=== PATIENT | female | born 1965 | race Caucasian/White ===

== ENCOUNTER 2019-07-16 19:15 | Inpatient (IN) | payer OTHER ==
[~2019-07-16] VITALS: Ht 65 cm; Wt 68.6 kg
[2019-07-16 19:45] LABS: HEMATOCRIT 42 % (35-52); LYMPHOCYTES % (AUTO) 20 % (12-44); MEAN CORPUSCULAR HEMOGLOBIN 35 PG (25-34); MEAN CORPUSCULAR HGB CONC 36 G/DL (32-36); MEAN CORPUSCULAR VOLUME 97 FL (80-99); MEAN PLATELET VOLUME 10.3 FL (7.4-10.4); MONOCYTES % (AUTO) 7 % (0-12); NEUTROPHILS % (AUTO) 72 % (42-75); PLATELET COUNT 284 10^3/uL (130-400); WHITE BLOOD COUNT 9.7 10^3/uL (4.3-11.0)
[2019-07-16 19:46] LABS: BASOPHILS # (AUTO) 0.1 10^3/uL (0.0-0.1); BASOPHILS % (AUTO) 1 % (0-10); EOSINOPHILS % (AUTO) 0 % (0-10); LYMPHOCYTES # (AUTO) 1.9 X 10^3 (1.0-4.0); MONOCYTES # (AUTO) 0.7 X 10^3 (0.0-1.0); NEUTROPHILS # (AUTO) 6.9 X 10^3 (1.8-7.8)
[2019-07-16 19:54] LABS: PROTHROMBIN TIME PATIENT 13.6 SEC (12.2-14.7)
--- NOTE | 2019-07-16 20:00 | Diagnostic Imaging Report ---
PROCEDURE: CT head wo r/o stroke. TECHNIQUE: Multiple contiguous axial images were obtained through the brain without the use of intravenous contrast. Auto Exposure Controls were utilized during the CT exam to meet ALARA standards for radiation dose reduction. INDICATION: Weakness and falling. CT HEAD: CT images of the head were obtained. FINDINGS: Ventricles and sulci are within normal limits for size. There is no intracranial hemorrhage identified. There is no abnormal mass effect or shift of midline structures. There is atherosclerotic calcification within distal internal carotid arteries, bilaterally. IMPRESSION: Unremarkable CT of the head. Dictated by: Dictated on workstation # [id number]
--- NOTE | 2019-07-16 20:06 | Diagnostic Imaging Report ---
INDICATION: Upper extremity paresthesia and generalized weakness Single PA view of the chest is obtained. COMPARISON: No previous study is available for comparison at this time. FINDINGS: Heart size and pulmonary vasculature are within normal limits, and the lungs are clear, bilaterally. IMPRESSION: Unremarkable chest. Dictated by: Dictated on workstation # [id number]
[2019-07-16 20:07] LABS: BUN/CREATININE RATIO 13; CALCIUM 10.2 MG/DL (8.5-10.1); CARBON DIOXIDE 32 MMOL/L (21-32); CHLORIDE 91 MMOL/L (98-107); CREATININE SERUM 0.69 MG/DL (0.60-1.30); GFR ESTIMATED > 60; GLUCOSE 196 MG/DL (70-105); POTASSIUM 2.6 MMOL/L (3.6-5.0); SODIUM 139 MMOL/L (135-145)
[2019-07-16 20:08] LABS: ALANINE AMINOTRANSFERASE 11 U/L (0-55); ALBUMIN 4.2 GM/DL (3.2-4.5); ALKALINE PHOSPHATASE 101 U/L (40-136); BILIRUBIN,TOTAL 0.5 MG/DL (0.1-1.0)
[2019-07-16] MEDS ORDERED: POTASSIUM CL 10MEQ/50ML IVPB 50 ML IV STA (20:28)
[2019-07-16] MEDS ORDERED: NS IV 1000 ML 1,000 ML IV STA (20:28)
[2019-07-16 20:48] LABS: CLARITY,URINE SLT CLOUDY; COLOR,URINE YELLOW; GLUCOSE, URINE (UA) NEGATIVE (NEGATIVE); KETONES,URINE TRACE (NEGATIVE); NITRITE,URINE NEGATIVE (NEGATIVE); PH,URINE 8.5 (5-9); PROTEIN,URINE NEGATIVE (NEGATIVE)
[2019-07-16 20:49] LABS: BACTERIA,URINE TRACE /HPF; BILIRUBIN,URINE 1+ (NEGATIVE); LEUKOCYTE ESTERASE ,URINE NEGATIVE (NEGATIVE); WBC,URINE 0-2 /HPF
[2019-07-16 20:50] LABS: AMORPHOUS SEDIMENT,UR FEW AMOR PHOSPHATE /LPF
--- NOTE | 2019-07-16 21:18 | ED General ---
General Chief Complaint: Neurological Problems Stated Complaint: POSS STROKE Nursing Triage Note: Has been off of BP meds for two years and was restarted on lisinopril last week. Monday was the first day she took the pills and woke up from a nap with some hand numbness. Yesterday she started having some weakness and fell twice. Is still feeling weak today but has not taken any more of the lisinopril because she thought it might be related. Has hx of hypertension. Nursing Sepsis Screen: No Definite Risk Source of Information: Patient, Family History of Present Illness Date Seen by Provider: Jul 16, 2019 Time Seen by Provider: 20:51 Initial Comments 53-year-old female presenting with complaints of left-sided weakness that is been off and on since Monday. She has a history of high blood pressure but has not been taking medicine for over 2 years. She was just restarted on Lisinopril Monday. She did not take her first dose until Monday. Since then she has been having some weakness and numbness in the left side. She had fallen over the weekend due to weakness in her left leg. She feels like her left leg is driving. She has been having some headaches as well. She feels like her left hand wouldn't steward/stewardess night yesterday but today it was doing better. She finally had her family bring her to the ED today because of her symptoms. She also has had right foot numbness for a month. Allergies and Home Medications Allergies Coded Allergies: No Known Drug Allergies (Unverified , 07/16/19) Patient Home Medication List Home Medication List Reviewed: Yes Review of Systems Review of Systems Constitutional: No chills, No fever; malaise EENTM: No ear discharge, No ear pain, No blurred vision, No double vision, No vision loss, No epistaxis, No throat swelling Respiratory: No cough, No short of breath Cardiovascular: No chest pain, No edema, No palpitations Gastrointestinal: No abdominal pain, No nausea, No vomiting Genitourinary: No dysuria, No frequency Musculoskeletal: neck pain (chronic and no worse than normal) Skin: No change in color Psychiatric/Neurological: Paresthesia (tingling in left arm and leg and slightly decreased sensation compared to the right) Past Xnvkjdt-Gxffph-Kdtkjy Hx Past Med/Social Hx: Reviewed Nursing Past Med/Soc Hx Patient Social History Alcohol Use: Occasionally Uses Alcohol Beverage of Choice: Whiskey Recreational Drug Use: No Smoking Status: Current Everyday Smoker Type Used: Cigarettes 2nd Hand Smoke Exposure: Yes Recent Foreign Travel: No Contact w/Someone Who Travel: No Recent Infectious Disease Expo: No Recent Hopitalizations: No Physical Abuse: No Sexual Abuse: No Mistreated: No Fear: No Seasonal Allergies Seasonal Allergies: No Past Medical History Surgeries: Yes Section, Tonsillectomy Respiratory: No Cardiac: Yes High Cholesterol, Hypertension Neurological: No Genitourinary: No Gastrointestinal: No Musculoskeletal: No Endocrine: No HEENT: No Cancer: No Psychosocial: No Integumentary: No Physical Exam Vital Signs Vital Signs - First Documented 07/16/19 07/17/19 19:20 00:29 Temp 36.7 Pulse 117 Resp 18 B/P (MAP) 194/108 (136) Pulse Ox 94 O2 Delivery Room Air Capillary Refill : Less Than 3 Seconds Height, Weight, BMI Height: '" Weight: lbs. oz. kg; 25.00 BMI Method: General Appearance: No Apparent Distress, WD/WN HEENT: PERRL/EOMI, TMs Normal, Normal ENT Inspection, Pharynx Normal Neck: Full Range of Motion, Normal Inspection, Non Tender, Supple; No Carotid Bruit Respiratory: Chest Non Tender, Lungs Clear, Normal Breath Sounds, No Accessory Muscle Use, No Respiratory Distress Cardiovascular: Regular Rate, Rhythm, Normal Peripheral Pulses Gastrointestinal: Normal Bowel Sounds, No Pulsatile Mass, Non Tender, Soft Rectal: Deferred Back: Normal Inspection, No CVA Tenderness, No Vertebral Tenderness Extremity: Normal Capillary Refill, Normal Range of Motion, Non Tender, No Calf Tenderness, No Pedal Edema Neurologic/Psychiatric: Alert, Oriented x3, Normal 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, 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 Norm as Tested; No Facial Droop; Motor Weakness (drift to left arm and leg), Sensory Deficit (slight decrease in sensation to left arm and leg) Skin: Normal Color, Warm/Dry Progress/Results/Core Measures Suspected Sepsis Recent Fever Within 48 Hours: No Infection Criteria Present: None New/Unexplained Altered Menta: No Sepsis Screen: No Definite Risk SIRS Temperature: Pulse: 117 Respiratory Rate: 18 Laboratory Tests 07/16/19 19:28: White Blood Count 9.7 Blood Pressure 194 /108 Mean: 136 Laboratory Tests 07/16/19 19:28: Creatinine 0.69, INR Comment 1.0, Platelet Count 284, Total Bilirubin 0.5 Results/Orders Lab Results Laboratory Tests Test 07/16/19 19:28 07/16/19 19:40 07/16/19 19:42 Range/Units White Blood Count 9.7 4.3-11.0 10^3/uL Red Blood Count 4.34 L 4.35-5.85 10^6/uL Hemoglobin 15.0 11.5-16.0 G/DL Hematocrit 42 35-52 % Mean Corpuscular Volume 97 80-99 FL Mean Corpuscular Hemoglobin 35 H 25-34 PG Mean Corpuscular Hemoglobin Concent 36 32-36 G/DL Red Cell Distribution Width 12.0 10.0-14.5 % Platelet Count 284 130-400 10^3/uL Mean Platelet Volume 10.3 7.4-10.4 FL Neutrophils (%) (Auto) 72 42-75 % Lymphocytes (%) (Auto) 20 12-44 % Monocytes (%) (Auto) 7 0-12 % Eosinophils (%) (Auto) 0 0-10 % Basophils (%) (Auto) 1 0-10 % Neutrophils # (Auto) 6.9 1.8-7.8 X 10^3 Lymphocytes # (Auto) 1.9 1.0-4.0 X 10^3 Monocytes # (Auto) 0.7 0.0-1.0 X 10^3 Eosinophils # (Auto) 0.0 0.0-0.3 10^3/uL Basophils # (Auto) 0.1 0.0-0.1 10^3/uL Prothrombin Time 13.6 12.2-14.7 SEC INR Comment 1.0 0.8-1.4 Activated Partial Thromboplast Time 25 24-35 SEC Sodium Level 139 135-145 MMOL/L Potassium Level 2.6 L 3.6-5.0 MMOL/L Chloride Level 91 L 98-107 MMOL/L Carbon Dioxide Level 32 21-32 MMOL/L Anion Gap 16 H 5-14 MMOL/L Blood Urea Nitrogen 9 7-18 MG/DL Creatinine 0.69 0.60-1.30 MG/DL Estimat Glomerular Filtration Rate > 60 BUN/Creatinine Ratio 13 Glucose Level 196 H 70-105 MG/DL Calcium Level 10.2 H 8.5-10.1 MG/DL Corrected Calcium 10.0 8.5-10.1 MG/DL Total Bilirubin 0.5 0.1-1.0 MG/DL Aspartate Amino Transf (AST/SGOT) 18 5-34 U/L Alanine Aminotransferase (ALT/SGPT) 11 0-55 U/L Alkaline Phosphatase 101 40-136 U/L Troponin I < 0.30 <0.30 NG/ML Total Protein 8.0 6.4-8.2 GM/DL Albumin 4.2 3.2-4.5 GM/DL Urine Color YELLOW Urine Clarity SLT CLOUDY Urine pH 8.5 5-9 Urine Specific [place] 1.015 L 1.016-1.022 Urine Protein NEGATIVE NEGATIVE Urine Glucose (UA) NEGATIVE NEGATIVE Urine Ketones TRACE H NEGATIVE Urine Nitrite NEGATIVE NEGATIVE Urine Bilirubin 1+ H NEGATIVE Urine Urobilinogen 2.0 NORMAL MG/DL Urine Leukocyte Esterase NEGATIVE NEGATIVE Urine RBC (Auto) NEGATIVE NEGATIVE Urine RBC NONE /HPF Urine WBC 0-2 /HPF Urine Squamous Epithelial Cells 2-5 /HPF Urine Crystals PRESENT H /LPF Urine Amorphous Sediment FEW KATHERINE PHOSPHATE H /LPF Urine Bacteria TRACE /HPF Urine Casts NONE /LPF Urine Mucus NONE /LPF Urine Culture Indicated NO Glucometer 193 H 70-110 MG/DL My Orders Orders - MANUEL ASIF MD Cbc With Automated Diff (07/16/19:) Protime With Inr (07/16/19:) Partial Thromboplastin Time (07/16/19:) Comprehensive Metabolic Panel (07/16/19:) Troponin I (07/16/19:) Ua Culture If Indicated (07/16/19:) Chest 1 View Ap/Pa Only (07/16/19:) Ekg Tracing (07/16/19:29) Nothing By Mouth (07/17/19 Breakfast) Accucheck Stat ONCE (07/16/19:) Ed Iv/Invasive Line Start (07/16/19:) Vital Signs Stroke Patient Q15M (07/16/19 19:29) Ct Head Wo-R/O Stroke (07/16/19:29) O2 (07/16/19:) Intake & Output 06,14,22 (07/16/19:) Monitor-Rhythm Ecg Trace Only (9/17/19 19:29) Dysphagia Screening Tool (07/16/19 19:29) Potassium Cl 10meq/50ml Ivpb (Kcl 10 Meq (07/16/19 20:28) Ns Iv 1000 Ml (Sodium Chloride 0.9%) (07/16/19 20:28) Amlodipine Tablet (Norvasc Tablet) (07/16/19 22:33) Aspirin Tablet (Aspirin Tablet) (07/16/19 22:33) Albuterol/Ipra Inhalation Soln (Duoneb I (07/16/19 22:34) Vital Signs/I&O 07/16/19 07/17/19 19:20 00:29 Temp 36.7 37.4 Pulse 117 97 Resp 18 14 B/P (MAP) 194/108 (136) 183/105 Pulse Ox 94 95 O2 Delivery Room Air 07/17/19 00:00 Intake Total 1050 ml Balance 1050 ml Capillary Refill : Less Than 3 Seconds Blood Pressure Mean: 136 Point of Care Testing Finger Stick Blood Glucose: 193 Progress Note #1: Progress Note patient sent to CT scan for imaging of her head to evaluate for stroke. also check CXR to look for mass, pneumonia or infection. Labs to look for electrolyte abnormality or infection. Evaluate EKG and cardiac enzymes to see her any acute cardiac abnormality with her elevated blood pressure with her complaints of left arm weakness and tingling. Progress Note #2: Progress Note CT of the head does not show any acute stroke or bleeding. The chest x-ray is also clear any acute mass or infiltrate. Her electrocardiogram does not show any acute ST elevation or ischemic changes but does show some tachycardia initially. Her labs show she has hypokalemia. She has no acute elevation of her troponin. Her renal function is normal. Her blood count shows normal white count and platelets. Her urine is not showing signs of infection. She was given IV fluids with potassium to help supplement her electrolytes. Her blood pressure continues to run on the high side but he did not want to drop that too fast in case was helping to perfuse her brain with her having the left-sided weakness. Since she continued to have symptoms of left-sided weakness I discussed her case with Dr. Ayoub the on-call physician for [facility] about admitting her for further workup such as an MRI and carotid Dopplers. With her blood pressure and strokelike symptoms with left-sided weakness, Dr. Ayoub recommended doing a dose of Norvasc 5 mg here as well as a dose of aspirin. ECG Initial ECG Impression Date: Jul 16, 2019 Initial ECG Impression Time: 19:23 Initial ECG Rate: 123 Initial ECG Rhythm: S.Tach Initial ECG Comparisson: No Previous ECG Available Comment Sinus tachycardia with heart rate of 123 beats for minute. PA interval 134 ms. QT interval 342 ms with a QT corrected interval 490 ms. There is no acute ST elevation. Diagnostic Imaging Diagonstic Imaging: CT Plain Films/CT/US/NM/MRI: head Comments NAME: MESHA VANN [employer] REC#: [id number] PT STATUS: REG ER : 1965 PHYSICIAN: MANUEL ASIF MD ADMIT DATE: 07/16/19/ER FS Signed Date of Exam:07/16/19 CT HEAD WO-R/O STROKE PROCEDURE: CT head wo r/o stroke. TECHNIQUE: Multiple contiguous axial images were obtained through the brain without the use of intravenous contrast. Auto Exposure Controls were utilized during the CT exam to meet ALARA standards for radiation dose reduction. INDICATION: Weakness and falling. CT HEAD: CT images of the head were obtained. FINDINGS: Ventricles and sulci are within normal limits for size. There is no intracranial hemorrhage identified. There is no abnormal mass effect or shift of midline structures. There is atherosclerotic calcification within distal internal carotid arteries, bilaterally. IMPRESSION: Unremarkable CT of the head. Dictated by: Dictated on workstation # [id number] Dict: 07/16/191954 Trans: 07/16/192152 [facility] [id number] Interpreted by: FREDRICK SHEFFIELD MD Electronically signed by: FREDRICK SHEFFIELD MD 07/16/192152 Diagonstic Imaging: Xray Plain Films/CT/US/NM/MRI: chest Comments NAME: MESHA VANN [facility] REC#: [id number] PT STATUS: REG ER : 1965 PHYSICIAN: MANUEL ASIF MD ADMIT DATE: 07/16/19/ER FS Signed Date of Exam:07/16/19 CHEST 1 VIEW AP/PA ONLY INDICATION: Upper extremity paresthesia and generalized weakness Single PA view of the chest is obtained. COMPARISON: No previous study is available for comparison at this time. FINDINGS: Heart size and pulmonary vasculature are within normal limits, and the lungs are clear, bilaterally. IMPRESSION: Unremarkable chest. Dictated by: Dictated on workstation # [id number] Dict: 07/16/192003 Trans: 07/16/192152 [facility] [id number] Interpreted by: FREDRICK SHEFFIELD MD Electronically signed by: FREDRICK SHEFFIELD MD 07/16/192152 Departure Communication (Admissions) Time/Spoke to Admitting Phy: 22:[address] Ayoub about admitting patient to have further workup for stroke symptoms. She has left-sided weakness that has been staggered didn't terms of intensity since Monday. She also is hypertensive and would need an MRI and ultrasound of her carotid Dopplers. Impression Primary Impression: CVA (cerebral vascular accident) Qualified Codes: I63.9 - Cerebral infarction, unspecified Additional Impressions: Left-sided weakness Hypertension Qualified Codes: I10 - Essential (primary) hypertension Hypokalemia Disposition: ADMITTED INPATIENT Condition: Stable Admissions Decision to Admit Reason: Admit from ER (General) Decision to Admit/Date: Jul 16, 2019 Time/Decision to Admit Time: 22:22 Departure-Patient Inst. Referrals: JOSE REECE (PCP) Primary Care Physician NIH Stroke Scale NIH Stroke Scale NIH : Select: Initial Level of Consciousness: 0=Alert Level of Consciousness-Questio: 0=Answers both month/age LOC Commands: 0=Performs both tasks Gaze: 0=Normal Visual Wetzel: 0=No visual loss Facial Movement (Facial Paresi: 0=Normal symmetrical mnt Motor Function-Arms Right: 0=No drift Motor Function-Arms Left: 1=Drift Motor Function-Legs Right: 0=No drift Motor Function-Legs Left: 1=Drift Limb Ataxia: 1=Present in one limb Sensory: 1=Mild to Moderate loss Best Language: 0=No aphasia Dysarthria: 0=Normal Extinction & Inattention: 1=Visual,tactile,auditory NIH Stroke Scale Score: 4 MANUEL ASIF MD Jul 16, 2019 21:17
[2019-07-16] MEDS ORDERED: amLODIPine 5 MG (NORVASC) TAB PO STA (22:33)
[2019-07-16] MEDS ORDERED: ASPIRIN 325 MG (5 GR) TABLET PO STA (22:33)
[2019-07-16] MEDS ORDERED: RT-ALBUTEROL/IPRATROPIUM 3 ML (DUONEB) VIAL ONE (22:34)
--- NOTE | 2019-07-17 01:15 | NUR ---
MESHA VANN admitted to room 411-1, with an admitting diagnosis of CVA, left sided weakness, on 07/16/19 from [facility] via EMS, accompanied by EMS.MESHA VANN introduced to surroundings, call light, bed controls, phone, TV, temperature control, lights, meal times, smoking policy, visitor policy, side rail policy, bathrooms and showers. Patient Rights given to patient in the handbook. MESHA VANN verbalizes understanding that [facility] is not responsible for the loss or damage to any personal effects or valuables that are kept in the patients posession during their hospitalization.
[2019-07-17 01:27] VITALS: BP 181/115
[2019-07-17] MEDS ORDERED: 1/2 NS IV SOLUTION 1,000 ML IV PRN (01:27)
[2019-07-17] MEDS ORDERED: LORazepam INJ 2 MG/ML (ATIVAN) VIAL IV PRN (01:30)
[2019-07-17] MEDS ORDERED: ACETAMINOPHEN 325 MG TABLET PO PRN ×2 (01:30→02:00)
[2019-07-17] MEDS ORDERED: ONDANSETRON 4 MG/2 ML (SDV) Z0FRAN IV PRN ×3 (01:30→07:30)
[2019-07-17] MEDS ORDERED: SENNA W/DOCUSATE (SENOKOT S) TABLET PO PRN (01:30)
[2019-07-17] MEDS ORDERED: LORazepam INJ 2 MG/ML (ATIVAN) VIAL IM/IV PRN (01:30)
[2019-07-17] MEDS ORDERED: LORazepam 1 MG (ATIVAN) TAB PO PRN (01:30)
[2019-07-17] MEDS ORDERED: ONDANSETRON 4 MG (ZOFRAN) ORAL DISSOLVE TAB SL PRN (01:30)
[2019-07-17] MEDS ORDERED: ANTACID SUSP 30 ML UDC (MYLANTA) PO PRN (01:30)
[2019-07-17] MEDS ORDERED: D5 1/2 NS 1000 ML IV SOLUTION 1,000 ML IV PRN (01:30)
[2019-07-17] MEDS: NS W/KCL 20 MEQ/L 1,000 ML IV SCH ×3 (01:41→20:51)
[2019-07-17] MEDS ORDERED: cloNIDine 0.1 MG (CATAPRES) TAB PO PRN (02:00)
[2019-07-17] MEDS ORDERED: fentaNYL INJECTION 100 MCG/2 ML AMP IVP PRN (02:00)
[2019-07-17] MEDS ORDERED: cloNIDine 0.1 MG (CATAPRES) TAB ONE (02:59)
[2019-07-17 04:00] VITALS: BP 146/96
[2019-07-17] MEDS: THIAMINE 100 MG (VITAMIN B-1) TAB PO SCH (06:12)
[2019-07-17] MEDS: MULTIVIT W/MINERALS TAB (THERAGRAN M) PO SCH (06:12)
--- NOTE | 2019-07-17 06:38 | NUR ---
PATIENT EXPRESSED TO THIS NURSE THAT SHE WOULD BE UNABLE TO COMPLETE MRI WITHOUT "DRUGS". DR WILBURN NOTIFIED AND ORDER RECEIVED TO ADMINISTER ATIVAN 2MG IV ONCE THIRTY MINUTES PRIOR TO MRI.
[2019-07-17 06:40] LABS: BASOPHILS % (AUTO) 0 % (0-10); EOSINOPHILS # (AUTO) 0.1 10^3/uL (0.0-0.3); EOSINOPHILS % (AUTO) 1 % (0-10); HEMATOCRIT 36 % (35-52); HEMOGLOBIN 12.7 G/DL (11.5-16.0); LYMPHOCYTES # (AUTO) 2.3 X 10^3 (1.0-4.0); LYMPHOCYTES % (AUTO) 31 % (12-44); MEAN CORPUSCULAR HEMOGLOBIN 34 PG (25-34); MEAN CORPUSCULAR HGB CONC 35 G/DL (32-36); MEAN CORPUSCULAR VOLUME 98 FL (80-99); MONOCYTES # (AUTO) 0.7 X 10^3 (0.0-1.0); MONOCYTES % (AUTO) 10 % (0-12); NEUTROPHILS # (AUTO) 4.1 X 10^3 (1.8-7.8); NEUTROPHILS % (AUTO) 57 % (42-75); PLATELET COUNT 221 10^3/uL (130-400); RED CELL DISTRIBUTION WIDTH 12.4 % (10.0-14.5); WHITE BLOOD COUNT 7.2 10^3/uL (4.3-11.0)
[2019-07-17 06:56] LABS: ALANINE AMINOTRANSFERASE 9 U/L (0-55); ALBUMIN 3.1 GM/DL (3.2-4.5); ALKALINE PHOSPHATASE 75 U/L (40-136); BILIRUBIN,TOTAL 0.5 MG/DL (0.1-1.0); BUN/CREATININE RATIO 11; CALCIUM 8.8 MG/DL (8.5-10.1); CARBON DIOXIDE 29 MMOL/L (21-32); CHLORIDE 99 MMOL/L (98-107); CHOLESTEROL 154 MG/DL (< 200); CREATININE SERUM 0.72 MG/DL (0.60-1.30); GFR ESTIMATED > 60; GLUCOSE 177 MG/DL (70-105); HDL CHOLESTEROL 18 MG/DL (40-60); SODIUM 137 MMOL/L (135-145); TOTAL PROTEIN 6.1 GM/DL (6.4-8.2); TRIGLYCERIDES 205 MG/DL (<150); VLDL CHOLESTEROL 41 MG/DL (5-40)
[2019-07-17 07:02] LABS: POTASSIUM 2.5 MMOL/L (3.6-5.0)
[2019-07-17 07:03] LABS: AMPHETAMINE SCREEN, URINE NEGATIVE (NEGATIVE); BARBITURATE SCREEN URINE NEGATIVE (NEGATIVE); BENZODIAZEPINES SCREEN URINE NEGATIVE (NEGATIVE); CANNABINOID SCREEN, URINE NEGATIVE (NEGATIVE); COCAINE SCREEN URINE NEGATIVE (NEGATIVE); METHADONE STAT NEGATIVE (NEGATIVE); METHAMPHETAMINE SCREEN URINE S NEGATIVE (NEGATIVE); OPIATE SCREEN URINE NEGATIVE (NEGATIVE); OXYCODONE STAT NEGATIVE (NEGATIVE); PROPOXYPHENE STAT NEGATIVE (NEGATIVE); TRICYCLIC ANTIDEPRESSANTS SCRE NEGATIVE (NEGATIVE)
[2019-07-17] MEDS: MAGNESIUM 1 GM/100 ML IVPB 100 ML IV SCH ×2 (07:46→07:47)
[2019-07-17] MEDS: POTASSIUM CL 10MEQ/50ML IVPB 50 ML IV SCH ×8 (07:47→13:40)
[2019-07-17 08:00] VITALS: BP 145/91
[2019-07-17] MEDS ORDERED: REGADENOSON 0.4 MG/5 ML SYR (LEXISCAN) IV ONE (08:00)
--- NOTE | 2019-07-17 08:49 | Diagnostic Imaging Report ---
PROCEDURE: US carotid duplex, bilateral. TECHNIQUE: Multiple real-time grayscale images were obtained over the carotid arteries in various projections, bilaterally. Additional spectral analysis and color Doppler duplex images were also obtained. INDICATION: Left weakness. Parameters based on the consensus panel Lebron-Scale and Doppler ultrasound criteria published August 2003, Radiology, Volume 229. DOPPLER (peak systolic velocity M/S Right Left CCA .71 .77 ICA Proximal .78 .93 ICA Mid .72 .60 ICA Distal .88 1.1 RATIO 1.25 1.45 ECA 1.1 .93 VERT .48 .55 FINDINGS: There are no focally elevated velocities in either internal carotid artery. The ICA/CCA ratios are within normal limits, bilaterally. There is antegrade flow in the vertebral arteries, bilaterally. Grayscale images demonstrate minimal carotid plaque, bilaterally. IMPRESSION: Minimal bilateral carotid plaque however spectral analysis shows no evidence of a hemodynamically significant stenosis in either internal carotid artery. Dictated by: Dictated on workstation # [id number]
[2019-07-17] MEDS ORDERED: amLODIPine 5 MG (NORVASC) TAB PO SCH (09:00)
--- NOTE | 2019-07-17 09:11 | Diagnostic Imaging Report ---
PROCEDURE: MR imaging of the brain without contrast. TECHNIQUE: Multiplanar/multisequence MR imaging of the brain was performed without contrast. INDICATION: Left-sided weakness. COMPARISON: No prior MRI brain studies are available for comparison. Comparison is made with a noncontrast head CT from one day earlier. FINDINGS: The ventricles and sulci are appropriate for the patient's age. There is a small focus of diffusion restriction noted in the posterior limb of the internal capsule on the right, consistent with a small nonhemorrhagic infarct. No other regions of diffusion restriction are identified. No mass effect or midline shift is identified. The normal expected flow-voids within the carotid siphons are seen. No acute intra-axial or extra-axial hemorrhage is identified. The corpus callosum is unremarkable. The sella and parasellar structures are unremarkable. IMPRESSION: Small acute nonhemorrhagic infarct in the posterior limb internal capsule on the right. No other significant abnormality is identified. No acute intracranial hemorrhage is detected. Dictated by: Dictated on workstation # [id number]
--- NOTE | 2019-07-17 09:22 | NUR ---
PATIENT TO MRI AT 829, RETURNED AT 921
[2019-07-17] MEDS: FOLIC ACID 1 MG TAB PO SCH (09:34)
[2019-07-17] MEDS: MAGNESIUM OXIDE (MAG-OX)400 MG TAB PO SCH ×2 (09:34→20:47)
[2019-07-17] MEDS: amLODIPine 5 MG (NORVASC) TAB PO SCH (09:34)
[2019-07-17] MEDS: KCL 10 MEQ TAB (MICRO K) PO SCH ×4 (09:35→20:47)
[2019-07-17] MEDS ORDERED: ASPI-983 PO (09:46)
[2019-07-17] MEDS ORDERED: LISI-552 PO (09:46)
--- NOTE | 2019-07-17 09:46 | NUR ---
PATIENT STATES SHE RECENTLY WAS PRESCRIBED BLOOD PRESSURE MEDICATION AND TOOK THAT MONDAY, MONDAY, MONDAY. SHE STATES ASIDE FROM THAT SHE TAKES ASPIRIN 81MG DAILY OTC BUT ADMITS SHE FREQUENTLY MISSES DOSES. I CALLED [facility] IN [facility] AND VERIFIED THEY FILLED LISINOPRIL 20MG DAILY #30 07-12-19.
--- NOTE | 2019-07-17 10:24 | Physical Therapy Evaluation ---
PT Evaluation-General Medical Diagnosis Admission Date Jul 16, 2019 at 22:22 Medical Diagnosis: CVA Onset Date: Jul 16, 2019 Therapy Diagnosis Therapy Diagnosis: impaired mobility, strength, endurance, balance Height/Weight Weight (Pounds): 151 Weight (Ounces): 4.0 Precautions Precautions/Isolations: Fall Prevention, Standard Precautions Referral Physician: Kaya Ayoub DO Reason for Referral: Evaluation/Treatment Medical History Additional Medical History Past Medical History Surgeries: Yes Section, Tonsillectomy Respiratory: No Cardiac: Yes High Cholesterol, Hypertension Neurological: No Genitourinary: No Gastrointestinal: No Musculoskeletal: No Endocrine: No HEENT: No Cancer: No Psychosocial: No Integumentary: No Reviewed History: Yes Prior/Core FIM Prior Level of Function Therapy Code Descriptions/Definitions Functional Corinne Measure: 0=Not Assessed/NA 4=Minimal Assistance 1=Total Assistance 5=Supervision or Setup 2=Maximal Assistance 6=Modified Corinne 3=Moderate Assistance 7=Complete Corinne Therapy Quality Codes: 6 Independent with activity with or without an assistive device 5 Patient requires set up or clean up by helper. Patient completes activity by themselves 4 Supervision or touching assist (CGA). [place] provide cues , steadying assist 3 The helper provides less than half the effort to complete the activity 2 The helper provides more than half the effort to complete the activity 1 Dependent. The helper does all the effort to complete an activity 7 Patient refused to complete or attempt activity 9 The patient did not perform the activity before the current illness or injury 88 Not attempted due to Medical conditions or safety concerns Functional Abilities and Goals: Independent: Patient completed the activities by him/herself, with or without an assistive device, with no assistance from a helper. Needed Some Help: Patient needed partial assistance from another person to complete activities. Dependent: A helper completed the activities for the patient. Unknown: Not Applicable: Bed Mobility: 7 Transfers (B,C,W/C) (FIM): 7 Gait: 7 Stairs: 7 Indoor Mobility (Ambulation): Independent Stairs: Independent PT Evaluation-Current Subjective Patient in bed pre tx, agrees to PT, has 8/10 pain in her back. Pt/Family Goals to be independent at home Objective Patient Orientation: Person, Place, Situation Attachments: IV ROM/Strength ROM Lower Extremities WNL Strength Lower Extremities LLE (hip flexion 3/5, knee flexion 3/5, knee extension 3/5, dorsiflexion 3-/5), RLE (hip flexion 3+/5, knee flexion 3+/5, knee extension 4/5, dorsiflexion 3/5) Neuromuscular (Tone, Coordination, Reflexes) No abnormal clonus on left ankle, nelson reflex negative, good tracking and peripheral vision Sensory Vision: Functional Hearing: Functional Sensation Right Lower Extremit: Impaired Sensation Left Lower Extremity: Intact Sensation Lower Extremities Patient has intact light touch sensation in both lower extremities but she states that her right leg feels like pins and needles. Transfers Therapy Code Descriptions/Definitions Functional Corinne Measure: 0=Not Assessed/NA 4=Minimal Assistance 1=Total Assistance 5=Supervision or Setup 2=Maximal Assistance 6=Modified Corinne 3=Moderate Assistance 7=Complete Corinne Transfers (B, C, W/C) (FIM): 4 Scootin Rollin Supine to/from Sit: 4 Sit to/from Stand: 4 Patient needs min assist for supine to sit and sit to stand. Cues for hand placement and safety. 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 Balance Sitting Static: Fair Sitting Dynamic: Fair Standing Static: Poor Standing Dynamic: Poor Treatment BLE seated exercises x15 (AP, LAQ) Assessment/Needs Patient has impaired mobility, strength, endurance, balance. Patient in recliner post tx with nurse call, phone, tray, instructed to call nursing if she has to get up. Family member in the room. Rehab Potential: Fair PT Short Term Goals Short Term Goals Time Frame: Jul 24, 2019 Transfers (B,C,W/C) (FIM): 4 (CGA) Gait (FIM): 2 Gait Distance Comment: 50' Gait Level of Assist: 4 (CGA) Gait Assistive Device: FWW PT Plan Problem List Problem List: Activity Tolerance, Functional Strength, Safety, Balance, Gait, Transfer, Bed Mobility Treatment/Plan Treatment Plan: Continue Plan of Care Treatment Plan: Bed Mobility, Education, Functional Activity Harsh, Functional Strength, Gait, Safety, Therapeutic Exercise, Transfers Treatment Duration: Jul 24, 2019 Frequency: 6 times per week Estimated Hrs Per Day: .25 hour per day Patient and/or Family Agrees t: Yes Safety Risks/Education Patient Education: Gait Training, Transfer Techniques, Correct Positioning, Safety Issues Teaching Recipient: Patient Teaching Methods: Demonstration, Discussion Response to Teaching: Reinforcement Needed Discharge Recommendations Plan Patient will perform bed mobility and transfer training, balance and endurance training, functional strengthening, gait training, and education, to improve functional mobility and independence at home. Therapy Discharge Recommendati: Other, See Comments (rehab) Time/GCodes Time In: 0950 Time Out: 1006 Total Billed Treatment Time: 16 Total Billed Treatment 1 visit ASHU 16' BOY HURD PT Jul 17, 2019 10:23
--- NOTE | 2019-07-17 11:04 | Consultation-Cardiology ---
HPI-Cardiology Cardiology Consultation Date of Consultation 07/17/19 Date of Admission Time Seen by Provider: 10:20 Indication: CVA, HTN HPI Patient is a 53 y/o female with hx of HTN, had been noncompliant with medications, tobaccoism, mod ETOH use. Presented to [facility] yesterday with complaints of left sided weakness since Monday. Denies any recent chest pain, dyspnea, dizziness or lightheadedness. MRI reveals acute infarct. Currently on ASA. No arrhythmia detected on telemetry. Continues to complain of left sided weakness. Denies any speech difficulties. Home Medications & Allergies Allergies: Coded Allergies: No Known Drug Allergies (Unverified , 07/16/19) Home Medication List Reviewed: Yes RKT-Rtappu-Urpbyb Hx Patient Social History Marital Status: Employed/Student: unemployed Alcohol Use: Regular Use (drinks 1/2 pint every other day) Recreational Drug Use: No Smoking Status: Current Everyday Smoker Type Used: Cigarettes 2nd Hand Smoke Exposure: Yes Recent Foreign Travel: No Recent Infectious Disease Expo: No Recent Hopitalizations: No Past Medical History HTN, Tobaccoism, mod ETOH use Family Medical History Significant Family History: CAD Over 55 Years Old Family History: "SEVERAL MINI STROKES" G8 SISTER Completed stroke G8 BROTHER (63) FH: migraine headache 19 MOTHER Fibromyalgia 19 MOTHER Myocardial infarction 19 FATHER Review of Systems-General Review of Systems Constitutional: see HPI; No chills, No dizziness, No fever; malaise EENTM: see HPI, no symptoms reported; No ear discharge, No ear pain, No blurred vision, No double vision, No vision loss, No epistaxis, No throat swelling Respiratory: no symptoms reported, see HPI; No cough, No short of breath Cardiovascular: see HPI; No chest pain, No edema, No Hx of Intervention, No palpitations, No syncope Gastrointestinal: No abdominal pain, No nausea, No vomiting Genitourinary: No dysuria, No frequency Musculoskeletal: neck pain (chronic and no worse than normal) Skin: No change in color Psychiatric/Neurological: Paresthesia (tingling in left arm and leg and slightly decreased sensation compared to the right), Weakness (left sided) Reviewed Test Results Reviewed Test Results Lab Laboratory Tests 07/16/19 19:28: White Blood Count 9.7, Red Blood Count 4.34L, Hemoglobin 15.0, Hematocrit 42, Mean Corpuscular Volume 97, Mean Corpuscular Hemoglobin 35H, Mean Corpuscular Hemoglobin Concent 36, Red Cell Distribution Width 12.0, Platelet Count 284, Mean Platelet Volume 10.3, Neutrophils (%) (Auto) 72, Lymphocytes (%) (Auto) 20, Monocytes (%) (Auto) 7, Eosinophils (%) (Auto) 0, Basophils (%) (Auto) 1, Neutrophils # (Auto) 6.9, Lymphocytes # (Auto) 1.9, Monocytes # (Auto) 0.7, Eosinophils # (Auto) 0.0, Basophils # (Auto) 0.1, Prothrombin Time 13.6, INR Comment 1.0, Activated Partial Thromboplast Time 25, Sodium Level 139, Potassium Level 2.6L, Chloride Level 91L, Carbon Dioxide Level 32, Anion Gap 16H, Blood Urea Nitrogen 9, Creatinine 0.69, Estimat Glomerular Filtration Rate > 60, BUN/Creatinine Ratio 13, Glucose Level 196H, Calcium Level 10.2H, Corrected Calcium 10.0, Total Bilirubin 0.5, Aspartate Amino Transf (AST/SGOT) 18, Alanine Aminotransferase (ALT/SGPT) 11, Alkaline Phosphatase 101, Troponin I < 0.30, Total Protein 8.0, Albumin 4.2 07/16/19 19:40: Urine Color YELLOW, Urine Clarity SLT CLOUDY, Urine pH 8.5, Urine Specific [place] 1.015L, Urine Protein NEGATIVE, Urine Glucose (UA) NEGATIVE, Urine Ketones TRACEH, Urine Nitrite NEGATIVE, Urine Bilirubin 1+H, Urine Urobilinogen 2.0, Urine Leukocyte Esterase NEGATIVE, Urine RBC (Auto) NEGATIVE, Urine RBC NONE, Urine WBC 0-2, Urine Squamous Epithelial Cells 2-5, Urine Crystals PRESENTH, Urine Amorphous Sediment FEW KATHERINE PHOSPHATEH, Urine Bacteria TRACE, Urine Casts NONE, Urine Mucus NONE, Urine Culture Indicated NO 07/16/19 19:42: Glucometer 193H 07/17/19 06:29: Sodium Level 137, Potassium Level 2.5*L, Chloride Level 99, Carbon Dioxide Level 29, Anion Gap 9, Blood Urea Nitrogen 8, Creatinine 0.72, Estimat Glomerular Filtration Rate > 60, BUN/Creatinine Ratio 11, Glucose Level 177H, Calcium Level 8.8, Corrected Calcium 9.5, Total Bilirubin 0.5, Aspartate Amino Transf (AST/SGOT) 11, Alanine Aminotransferase (ALT/SGPT) 9, Alkaline Phosphatase 75, Total Protein 6.1L, Albumin 3.1L, Triglycerides Level 205H, Cholesterol Level 154, LDL Cholesterol Direct 111, VLDL Cholesterol 41H, HDL Cholesterol 18L 07/17/19 06:30: Urine Opiates Screen NEGATIVE, Urine Oxycodone Screen NEGATIVE, Urine Methadone Screen NEGATIVE, Urine Propoxyphene Screen NEGATIVE, Urine Barbiturates Screen NEGATIVE, Ur Tricyclic Antidepressants Screen NEGATIVE, Urine Phencyclidine Screen NEGATIVE, Urine Amphetamines Screen NEGATIVE, Urine Methamphetamines Screen NEGATIVE, Urine Benzodiazepines Screen NEGATIVE, Urine Cocaine Screen NEGATIVE, Urine Cannabinoids Screen NEGATIVE 07/17/19 06:40: White Blood Count 7.2, Red Blood Count 3.69L, Hemoglobin 12.7, Hematocrit 36, Mean Corpuscular Volume 98, Mean Corpuscular Hemoglobin 34, Mean Corpuscular Hemoglobin Concent 35, Red Cell Distribution Width 12.4, Platelet Count 221, Mean Platelet Volume 10.0, Neutrophils (%) (Auto) 57, Lymphocytes (%) (Auto) 31, Monocytes (%) (Auto) 10, Eosinophils (%) (Auto) 1, Basophils (%) (Auto) 0, Neutrophils # (Auto) 4.1, Lymphocytes # (Auto) 2.3, Monocytes # (Auto) 0.7, Eosinophils # (Auto) 0.1, Basophils # (Auto) 0.0 ECG Impression ECG Initial ECG Rhythm: S.Tach Physical Exam Physical Exam Vital Signs Vital Signs - First Documented 07/16/19 07/17/19 19:20 00:29 Temp 36.7 Pulse 117 Resp 18 B/P (MAP) 194/108 (136) Pulse Ox 94 O2 Delivery Room Air Capillary Refill : Less Than 3 Seconds Height, Weight, BMI Height: '" Weight: 151lbs. 4.0oz. [id number]; 162.60 BMI Method: General Appearance: No Apparent Distress, WD/WN HEENT: PERRL/EOMI, Normal ENT Inspection, Pharynx Normal Neck: Full Range of Motion, Normal Inspection, Non Tender, Supple; No Carotid Bruit Respiratory: Chest Non Tender, Lungs Clear, Normal Breath Sounds, No Accessory Muscle Use, No Respiratory Distress Cardiovascular: No Edema, No Gallop, No JVD, No Murmur, Normal Peripheral Pulses, Tachycardia Gastrointestinal: Normal Bowel Sounds, No Pulsatile Mass, Non Tender, Soft Rectal: Deferred Back: Normal Inspection, No CVA Tenderness, No Vertebral Tenderness Extremity: Normal Capillary Refill, Normal Range of Motion, Non Tender, No Calf Tenderness, No Pedal Edema Neurologic/Psychiatric: Alert, Oriented x3, Normal Mood/Affect, roll slicing machine tender II-XII Norm as Tested; No Facial Droop; Motor Weakness (drift to left arm and leg), Sensory Deficit (slight decrease in sensation to left arm and leg) Skin: Normal Color, Warm/Dry A/P-Cardiology Admission Diagnosis CVA HTN Tobaccoism ETOH use Assessment/Plan Acute CVA- MRI done this morning revealed small acute nonhemorrhagic infarct in the posterior limb internal capsule on the right. Unknown etiology. No arrhythmia on telemetry. Carotid duplex revealed nonobstructive disease bilaterally. 2D Echo showed normal left ventricular size and function, ejection fraction 60 percent, start aspirin, monitor and start physical therapy HTN- had been noncompliant with blood pressure medicaitons over the past 2 years. Mildly elevated today. Continue on current medication and continue to monitor. Hyperlipidemia, start Lipitor 10 mg daily Tobaccoism -1ppd smoker, discussed importance of smoking cessation. ETOH use Nonobstructive RANDAL per carotid duplex done yesterday Thank you for allowing us to participate in the management of Ms. Padron. This is Laverne Martinez PA-C, as a scribe for Dr. Cheney. Visit Dr. Cheney, I have seen and evaluated the patient with Laverne, discussed the management plan, perform physical examination, agree with the current scribed note, on examination patient has weakness on the left side, no chest pain. Has history of EtOH use, continue with conservative management, monitor blood pressure, start physical therapy. Start statin, monitor lipids Clinical Quality Measures DVT/VTE Risk/Contraindication: Risk Factor Score Per Nursin RFS Level Per Nursing on Admit: 2=Moderate LAVERNE PADILLA Jul 17, 2019 11:04 WILLIS CHENEY MD Jul 17, 2019 13:20
[2019-07-17 12:00] VITALS: BP 129/82
--- NOTE | 2019-07-17 12:46 | History & Physical-Hospitalist ---
ALEXANDRIA PADILLA [facility] 07/17/19 1246: History of Present Illness HPI/Chief Complaint CC: L-sided weakness and numbness Ms. Padron is a 53 yo WF who presented with L-sided weakness and motor dysfunction, instructed to go the ER by PCP because she was having signs of stroke. The patient saw her PCP, Dr. Peacock, for constipation and was told that her BP was elevated. She was subsequently started back on Lisinopril with a dose of 20 mg PO QD. She started taking this on Monday and noticed her issue once she began her treatment. This initial dose as well as the next subsequent doses produced the same L-sided weakness and numbness. She states little 'izid-wdw-qdqnms' sensations. On Monday, she felt better and went out. She then noticed pain and sweating. While climbing up the stairs, she tripped and fell due to L LE weakness and numbness. After falling she crawled into her house and was by herself until her 'almost' came home that night. On Monday her PCP officed called to go over her labs from the Monday before, told the symptoms, and then subsequently told to go to the ER. She was told that she had HLP, HTN, and high blood sugars. She doesn't comment on any alleviating factors and the medicine being the inducing factor. No new pain was stated, but mentioned that she has chronic joint pain. She also states chronic R-foot neuro karlos that has affected her gate. Source: patient, family Exam Limitations: no limitations (Exam was preformed in the chair, but full exam was completed), physical impairment Date Seen 07/17/19 Time Seen by a Provider: 11:00 Attending Physician Kaya Wilburn DO PCP Betty Giron Referring Physician Date of Admission Jul 16, 2019 at 22:22 Home Medications & Allergies Home Medications Reviewed patient Home Medication Reconciliation performed by pharmacy medication reconciliations technician telecommunication systems and/or nursing. Patients Allergies have been reviewed. Allergies Allergies Coded Allergies No Known Drug Allergies (Unverified07/16/19) Past Lglvhnz-Upehux-Qcuvia Hx Past Med/Social Hx: Reviewed Nursing Past Med/Soc Hx Patient Social History Marrital Status: Employed/Student: unemployed Alcohol Use: Regular Use (drinks 1/2 pint every other day) Alcohol Beverage of Choice: Whiskey Recreational Drug Use: No Smoking Status: Current Everyday Smoker Cigaretts per day: 20 Type Used: Cigarettes 2nd Hand Smoke Exposure: Yes Recent Foreign Travel: No Contact w/other who traveled: No Recent Hopitalizations: No Recent Infectious Disease Expo: No Seasonal Allergies Seasonal Allergies: No Past Medical History Surgeries: Section, Tonsillectomy Cardiac: High Cholesterol, Hypertension : No Reproductive: No Sexually Transmitted Disease: No HIV/AIDS: No Female Reproductive Disorders: Denies Psychosocial: Anxiety History of Blood Disorders: No Adverse Reaction to Blood Rosario: No Family History "SEVERAL MINI STROKES" G8 SISTER Completed stroke G8 BROTHER (63) FH: migraine headache 19 MOTHER Fibromyalgia 19 MOTHER Myocardial infarction 19 FATHER CAD Over 55 Years Old, CVA Review of Systems Constitutional: chills, malaise, weakness EENTM: see HPI Respiratory: cough, phlegm, short of breath Cardiovascular: chest pain, palpitations Gastrointestinal: diarrhea, nausea Genitourinary: no symptoms reported Control/STD Prophylaxis: None Musculoskeletal: back pain, joint pain Skin: no symptoms reported Psychiatric/Neurological: Anxiety, Headache All Other Systems Reviewed Negative Unless Noted: Yes Physical Exam Physical Exam Vital Signs Vital Signs - First Documented 07/16/19 07/17/19 19:20 00:29 Temp 36.7 Pulse 117 Resp 18 B/P (MAP) 194/108 (136) Pulse Ox 94 O2 Delivery Room Air Capillary Refill : Less Than 3 Seconds Height, Weight, BMI Height: '" Weight: 151lbs. 4.0oz. 68.312214ir; 162.60 BMI Method: General Appearance: No Apparent Distress, WD/WN Eyes: Bilateral Eye Normal Inspection, Bilateral Eye PERRL, Bilateral Eye EOMI HEENT: PERRL/EOMI, Normal ENT Inspection, Pharynx Normal, Moist Mucous Membranes Neck: Normal Inspection, Non Tender, Supple Respiratory: Chest Non Tender, Lungs Clear, Normal Breath Sounds, No Accessory Muscle Use, No Respiratory Distress Cardiovascular: Regular Rate, Rhythm, No Edema, No Gallop, No JVD, No Murmur, Normal Peripheral Pulses Gastrointestinal: Normal Bowel Sounds, Non Tender, Soft Extremity: Normal Capillary Refill, Normal Inspection, Non Tender, No Calf Tenderness, No Pedal Edema Neurologic/Psychiatric: Alert, Oriented x3, No Motor/Sensory Deficits, Normal Mood/Affect, manager of broadcast content II-XII Norm as Tested Reflexes: 2+ Bicep (R), 2+ Bicep (L), 2+ Tricep (R), 2+ Tricep (L), 2+ Knee (R), 2+ Knee (L), 2+ Ankle (R), 2+ Ankle (L) Skin: Normal Color, Warm/Dry Lymphatic: No Adenopathy Results Results/Procedures Labs Laboratory Tests 07/16/19 19:28 07/17/19 06:29 07/17/19 06:40 Patient resulted labs reviewed. Assessment/Plan Admission Diagnosis CVA Admission Status: Inpatient Order (span 2 midnights) Reason for Inpatient Admission: Monitor Stroke and Alcohol consumption Assessment and Plan Assessment: 1. CVA 2. EtOH abuse noted 3. Diagnosis of HTN 4. Diagnosis of HLP 5. Chronic smoker 6. High blood sugars 7. Hypokalemia Plan: 1. Stroke protocol 2. B1 supplimentation and monitoring withdrawal 3. Treat with BP med other than lisinopril for now 4. Initial cholesterol treatment. 5. Smoking cessation 6. Diet modification and medication for blood sugars. 7. Electrolyte management. Clinical Quality Measures DVT/VTE Risk/Contraindication: Risk Factor Score Per Nursin RFS Level Per Nursing on Admit: 2=Moderate KAYA WILBURN DO 07/17/19 2100: History of Present Illness HPI/Chief Complaint CC: Left sided weakness wince Monday HPI: This is a 53yoWF with a hx of alcohol and drug abuse with tobacco use who presented to the [facility] ER with left sided flaccidity since Monday and thought that maybe she should go get checked out last night late and she was found to have a confirmed stroke on MRI so she will be evaluated on stroke protocol with PT, OT, rehab and check lipid panel dysphasia screen, and work on smoking, alcohol and drug cessation. Past Dnlzmbd-Wejnmn-Bbbabf Hx Family History "SEVERAL MINI STROKES" G8 SISTER Completed stroke G8 BROTHER (63) FH: migraine headache 19 MOTHER Fibromyalgia 19 MOTHER Myocardial infarction 19 FATHER Physical Exam Physical Exam Neurologic/Psychiatric: Motor Weakness (left upper and lower extremity) Assessment/Plan Admission Diagnosis Assessment: Subacute CVA with left sided weakness HTN Smoker DM Plan: MRI confirmed CVA HGA1C BP management Admission Status: Inpatient Order (span 2 midnights) Reason for Inpatient Admission: New CVA Diagnosis/Problems Diagnosis/Problems (1) CVA (cerebral vascular accident) Status: Acute Qualifiers: CVA mechanism: unspecified Qualified Codes: I63.9 - Cerebral infarction, unspecified (2) Left-sided weakness Status: Acute (3) Hypertension Status: Acute Qualifiers: Hypertension type: essential hypertension Qualified Codes: I10 - Essential (primary) hypertension (4) Hypokalemia Status: Acute Supervisory-Addendum Brief Verification & Attestation Participated in pt care: history, MDM, physical Personally performed: exam, history, MDM, supervision of care Care discussed with: Medical Student Procedures: n/a Results interpretation: Verified all documentation Verification and Attestation of Medical Student E/M Service A medical student performed and documented this service in my presence. I reviewed and verified all information documented by the medical student and made modifications to such information, when appropriate. I personally performed the physical exam and medical decision making. Kaya Wilburn, Jul 17, 2019,20:58 ALEXANDRIA PADILLA [facility] Jul 17, 2019 12:46 KAYA WILBURN DO Jul 17, 2019 21:00
--- NOTE | 2019-07-17 13:09 | Occupational Therapy Eval ---
OT Evaluation-General/PLF Medical Diagnosis Admission Date Jul 16, 2019 at 22:22 Medical Diagnosis: Left sided weakness Onset Date: Jul 16, 2019 Therapy Diagnosis Therapy Diagnosis: Decreased ADL skills Height/Weight Weight (Pounds): 151 Weight (Ounces): 4.0 Precautions Precautions/Isolations: Fall Prevention, Standard Precautions Referral Physician: Kaya Ayoub DO Referral Reason: Activity Tolerance, Self Care, Evaluation/Treatment, Strengthening/ROM Medical History Pertinent Medical History: HTN Additional Medical History Right foot numbness for approximately a month per chart. Herniated disc. Current History Pt. states that she began having left sided weakness. Reports that she feels that her speech is okay. Reviewed History: Yes Social History Home: Single Level Current Living Status: Spouse Entry Into Home: Stairs With Railing Steps Into Home: 4 (Pt. states that steps are shallow.) ADL-Prior Level of Function Therapy Code Descriptions/Definitions Functional Hankins Measure: 0=Not Assessed/NA 4=Minimal Assistance 1=Total Assistance 5=Supervision or Setup 2=Maximal Assistance 6=Modified Hankins 3=Moderate Assistance 7=Complete Hankins Therapy Quality Codes: 6 Independent with activity with or without an assistive device 5 Patient requires set up or clean up by helper. Patient completes activity by themselves 4 Supervision or touching assist (CGA). [place] provide cues , steadying assist 3 The helper provides less than half the effort to complete the activity 2 The helper provides more than half the effort to complete the activity 1 Dependent. The helper does all the effort to complete an activity 7 Patient refused to complete or attempt activity 9 The patient did not perform the activity before the current illness or injury 88 Not attempted due to Medical conditions or safety concerns Functional Abilities and Goals: Independent: Patient completed the activities by him/herself, with or without an assistive device, with no assistance from a helper. Needed Some Help: Patient needed partial assistance from another person to complete activities. Dependent: A helper completed the activities for the patient. Unknown: Not Applicable: ADL PLOF Comments Pt. was independent with daily tasks. States that she is currently unemployed but otherwise, is independent with daily tasks. Self Care: Independent Functional Cognition: Independent DME/Equipment: Tub/Shower Drive Self: Yes OT Current Status Subjective No pain level. Appearance Pt. up in chair. Waiting on lunch. Agrees to work with OT. Mental Status/Objective Patient Orientation: Person, Place, Time, Situation Current Hand Dominance: Right Upper Extremity ROM Pt. is able to fully flex bilateral shoulders. However, left shoulder is slower to raise. Full AROM to left shoulder, wrist. Limited active range in fingers. Upper Extremity Coordination Poor coordination in left hand. ADL-Treatment Therapy Code Descriptions/Definitions Functional Hankins Measure: 0=Not Assessed/NA 4=Minimal Assistance 1=Total Assistance 5=Supervision or Setup 2=Maximal Assistance 6=Modified Hankins 3=Moderate Assistance 7=Complete Hankins Therapy Quality Codes: 6 Independent with activity with or without an assistive device 5 Patient requires set up or clean up by helper. Patient completes activity by themselves 4 Supervision or touching assist (CGA). [place] provide cues , steadying assist 3 The helper provides less than half the effort to complete the activity 2 The helper provides more than half the effort to complete the activity 1 Dependent. The helper does all the effort to complete an activity 7 Patient refused to complete or attempt activity 9 The patient did not perform the activity before the current illness or injury 88 Not attempted due to Medical conditions or safety concerns Eating (FIM): 5 (Pt. is able to feed self with some assist for set up of packets. Pt. is able to set up otherwise, with some coordination difficulty.) Lower Body Dressing (FIM): 4 (Min assist for slipper socks. Pt. requires increased time to don socks, and has difficulty with grasp. OT assisted with adjusting.) Transfers (B, C, W/C) (FIM): 4 Education OT Patient Education: Correct positioning, Exercise program, Modified ADL techniques, Progress toward Goal/Update tx plan, Purpose of tx/functional activities, Reviewed precautions, Rehab process, Transfer techniques Teaching Recipient: Patient Teaching Methods: Demonstration, Discussion Response to Teaching: Verbalize Understanding, Return Demonstration OT Short Term Goals Short Term Goals Transfers (B,C,W/C) (FIM): 4 (CGA) 1=Demonstrate adherence to instructed precautions during ADL tasks. 2=Patient will verbalize/demonstrate understanding of assistive devices/modifications for ADL. 3=Patient will improve strength/tolerance for activity to enable patient to perform ADL's. OT After School Program Teacher Goals [facility] Goals Time Frame: Jul 31, 2019 Eating (FIM): 6 Grooming(FIM): 6 Bathing(FIM): 5 Upper Body Dressing(FIM): 6 Lower Body Dressing(FIM): 6 Toileting(FIM): 6 Transfers (B,C,W/C) (FIM): 6 Toilet/Commode Transfer(FIM): 6 Shower Transfer(FIM): 5 Additional Goals: 1-Demonstrate ADL Tasks, 2-Verbalize Understanding, 3-I mproveStrength/Harsh 1=Demonstrate adherence to instructed precautions during ADL tasks. 2=Patient will verbalize/demonstrate understanding of assistive devices/modifications for ADL. 3=Patient will improve strength/tolerance for activity to enable patient to perform ADL's. OT Education/Plan Problem List/Assessment Assessment: Decreased Activ Tolerance, Decreased UE Strength, Dependent Transfers, Impaired Coordination, Impaired Funct Balance, Impaired I ADL's, I mpaired Self-Care Skills, Restricted Funct UE ROM Discharge Recommendations Plan/Recommendations: Continue POC Therapy Discharge Recommendati: Post Acute OT Treatment Plan/Plan of Care Treatment,Training & Education: Yes Patient would benefit from OT for education, treatment and training to promote independence in ADL's, mobility, safety and/or upper extremity function for ADL's. Treatment Duration: Jul 31, 2019 Frequency: 5 times per week Estimated Hrs Per Day: .5 hour per day Agreement: Yes Rehab Potential: Good Time/GCodes Start Time: 11:45 Stop Time: 12:10 Total Time Billed (hr/min): 25 Billed Treatment Time 1, EVM x 10minutes, ADL x 15minutes ZEENAT ROYAL OT Jul 17, 2019 13:09
[2019-07-17] MEDS: ASPIRIN E.C. 81 MG (ECOTRIN) TAB PO SCH (13:40)
[2019-07-17 16:00] VITALS: BP 144/92
[2019-07-17 20:00] VITALS: BP 148/92
[2019-07-18 00:16] VITALS: BP 152/89
[2019-07-18 04:52] VITALS: BP 149/87
[2019-07-18] MEDS: THIAMINE 100 MG (VITAMIN B-1) TAB PO SCH (05:02)
[2019-07-18] MEDS: MULTIVIT W/MINERALS TAB (THERAGRAN M) PO SCH (05:02)
[2019-07-18 05:29] LABS: BASOPHILS % (AUTO) 0 % (0-10); EOSINOPHILS # (AUTO) 0.1 10^3/uL (0.0-0.3); EOSINOPHILS % (AUTO) 1 % (0-10); HEMATOCRIT 36 % (35-52); HEMOGLOBIN 12.1 G/DL (11.5-16.0); LYMPHOCYTES % (AUTO) 25 % (12-44); MEAN CORPUSCULAR HEMOGLOBIN 34 PG (25-34); MEAN CORPUSCULAR HGB CONC 34 G/DL (32-36); MEAN CORPUSCULAR VOLUME 99 FL (80-99); MEAN PLATELET VOLUME 10.5 FL (7.4-10.4); MONOCYTES # (AUTO) 0.8 X 10^3 (0.0-1.0); MONOCYTES % (AUTO) 10 % (0-12); NEUTROPHILS # (AUTO) 5.1 X 10^3 (1.8-7.8); NEUTROPHILS % (AUTO) 63 % (42-75); PLATELET COUNT 200 10^3/uL (130-400); RED CELL DISTRIBUTION WIDTH 12.3 % (10.0-14.5); WHITE BLOOD COUNT 8.1 10^3/uL (4.3-11.0)
[2019-07-18 05:49] LABS: ALANINE AMINOTRANSFERASE 7 U/L (0-55); ALBUMIN 3.2 GM/DL (3.2-4.5); ALKALINE PHOSPHATASE 66 U/L (40-136); BILIRUBIN,TOTAL 0.6 MG/DL (0.1-1.0); BUN/CREATININE RATIO 8; CALCIUM 8.6 MG/DL (8.5-10.1); CARBON DIOXIDE 24 MMOL/L (21-32); CHLORIDE 106 MMOL/L (98-107); CREATININE SERUM 0.71 MG/DL (0.60-1.30); GFR ESTIMATED > 60; GLUCOSE 128 MG/DL (70-105); MAGNESIUM 1.8 MG/DL (1.6-2.4); POTASSIUM 3.5 MMOL/L (3.6-5.0); SODIUM 139 MMOL/L (135-145); TOTAL PROTEIN 6.1 GM/DL (6.4-8.2)
[2019-07-18] MEDS: NS W/KCL 20 MEQ/L 1,000 ML IV SCH (06:41)
[2019-07-18 08:00] VITALS: BP 153/89
--- NOTE | 2019-07-18 08:40 | Cardiology Progress Note ---
Subjective Date Seen by Provider: Jul 18, 2019 Time Seen by Provider: 08:37 Subjective/Events-last exam Patient in bed, reports some improvement in left sided weakness. Denies any chest pain or dyspnea. Objective-Cardiology Exam Last Set of Vital Signs Vital Signs 07/18/19 08:00 Temp 37.4 Pulse 96 Resp 16 B/P (MAP) 153/89 (110) Pulse Ox 93 O2 Delivery Room Air Capillary Refill : Less Than 3 Seconds I&O Intake and Output 07/18/19 00:00 Intake Total 2660 ml Output Total 600 ml Balance 2060 ml Intake Oral 1060 ml IV Total 1600 ml Output Urine Total 600 ml # Voids 7 # Bowel Movements 1 Daily Weight Change No No General: Alert, Oriented X3, Cooperative HEENT: Atraumatic, PERRLA Neck: Supple, No JVD, No Thyromegaly Lungs: Clear to Auscultation, Normal Air Movement Heart: Other (tachycardic) Abdomen: Normal Bowel Sounds, Soft Extremities: No Edema Skin: No Rashes, No Significant Lesion Neuro: Cranial Nerves 3-12 NL, Other (left sided weakness) Results Lab Laboratory Tests 07/18/19 04:35 A/P-Cardiology Admission Diagnosis CVA HTN Tobaccoism ETOH use Assessment/Plan Acute CVA- MRI done yesterday revealed small acute nonhemorrhagic infarct in the posterior limb internal capsule on the right. Unknown etiology. No arrhythmia on telemetry. Carotid duplex revealed nonobstructive disease bilaterally. 2D Echo showed normal left ventricular size and function, ejection fraction 60 percent, continue on ASA. HTN- had been noncompliant with blood pressure medicaitons over the past 2 years. Mildly elevated today. I will add beta ilya and continue to monitor. Hyperlipidemia, started on Lipitor Tobaccoism -1ppd smoker, discussed importance of smoking cessation. ETOH use Nonobstructive RANDAL per carotid duplex done yesterday Sinus tachycardia- I will start low dose beta ilya, monitor tolerance and response. Clinical Quality Measures DVT/VTE Risk/Contraindication: Risk Factor Score Per Nursin RFS Level Per Nursing on Admit: 2=Moderate Supervisory-Addendum Brief Supervisory Addendum Participated in pt care: history, MDM, physical Personally performed: exam, history, MDM Care discussed with: WALKER Notes: Patient was seen and evaluated, feeling better, strength is improving slowly, blood pressure still elevated. On examination lungs were clear to auscultation bilateral, heart is regular rate and rhythm. Add Toprol 25 mg daily Continue to monitor blood pressure Started on Lipitor 80 mg daily Monitor lipids DAVI PADILLA Jul 18, 2019 08:40 WILLIS RAMOS MD Jul 18, 2019 10:00
[2019-07-18] MEDS ORDERED: ASPIRIN E.C. 81 MG (ECOTRIN) TAB PO SCH (09:00)
[2019-07-18] MEDS: FOLIC ACID 1 MG TAB PO SCH (09:12)
[2019-07-18] MEDS: MAGNESIUM OXIDE (MAG-OX)400 MG TAB PO SCH (09:12)
[2019-07-18] MEDS: KCL 10 MEQ TAB (MICRO K) PO SCH (09:13)
[2019-07-18] MEDS: amLODIPine 5 MG (NORVASC) TAB PO SCH (09:13)
[2019-07-18] MEDS: ASPIRIN E.C. 81 MG (ECOTRIN) TAB PO SCH (09:14)
--- NOTE | 2019-07-18 10:30 | Discharge Summary ---
[facility] PADILL[facility] 07/18/19 1028: Discharge Summary Hospital Course Was the Problem List Reviewed?: Yes Problems/Dx: (1) CVA (cerebral vascular accident) Status: Acute Qualifiers: Qualified Codes: I63.9 - Cerebral infarction, unspecified (2) Left-sided weakness Status: Acute (3) Hypertension Status: Chronic Qualifiers: Qualified Codes: I10 - Essential (primary) hypertension (4) Hypokalemia Status: Acute Hospital Course Date of Admission: Jul 16, 2019 at 22:22 Admission Diagnosis : Family Physician/Provider: Date of Discharge: 07/18/19 Discharge Diagnosis: [ ] Hospital Course: [ ]Ms. Padron is a 53 yo WF that came for symptoms of a stroke. Her stroke was confirmed with MRI. She was treated for via stroke protocol and monitored closely. Patient was also treated with Thiamine due to history of life long drinking. Labs and Pending Lab Test: Laboratory Tests 07/18/19 04:35: White Blood Count 8.1, Red Blood Count 3.58L, Hemoglobin 12.1, Hematocrit 36, Mean Corpuscular Volume 99, Mean Corpuscular Hemoglobin 34, Mean Corpuscular Hemoglobin Concent 34, Red Cell Distribution Width 12.3, Platelet Count 200, Mean Platelet Volume 10.5H, Neutrophils (%) (Auto) 63, Lymphocytes (%) (Auto) 25, Monocytes (%) (Auto) 10, Eosinophils (%) (Auto) 1, Basophils (%) (Auto) 0, Neutrophils # (Auto) 5.1, Lymphocytes # (Auto) 2.0, Monocytes # (Auto) 0.8, Eosinophils # (Auto) 0.1, Basophils # (Auto) 0.0, Sodium Level 139, Potassium Level 3.5L, Chloride Level 106, Carbon Dioxide Level 24, Anion Gap 9, Blood Urea Nitrogen 6L, Creatinine 0.71, Estimat Glomerular Filtration Rate > 60, BUN/Creatinine Ratio 8, Glucose Level 128H, Calcium Level 8.6, Corrected Calcium 9.2, Magnesium Level 1.8, Total Bilirubin 0.6, Aspartate Amino Transf (AST/SGOT) 14, Alanine Aminotransferase (ALT/SGPT) 7, Alkaline Phosphatase 66, Total Protein 6.1L, Albumin 3.2 Home Meds Active Reported Lisinopril 20 Mg Tablet 20 Mg PO DAILY Aspirin EC (Aspirin) 81 Mg Tablet.dr 81 Mg PO DAILY Assessment/Pt Instructions Assessment: 1. History of HTN and HLP 2. Evidence of Stroke 3. Physical Impairments of the L-side 4. Alcohol Addiction Instruction: 1. Take BP and Lipid lowering drugs 2. Modify diet 3. Rehab: PT/OT 4. Alcohol Cessation Discharge Planning: >30 minutes discharge planning Discharge Physical Examination Vital Signs Vital Signs Date Time Temp Pulse Resp B/P (MAP) Pulse Ox O2 Delivery O2 Flow Rate FiO2 07/18/19 08:00 37.4 96 16 153/89 (110) 93 Room Air General Appearance: No Apparent Distress, WD/WN HEENT: Normal ENT Inspection, Moist Mucous Membranes Respiratory: Chest Non Tender, Lungs Clear, Normal Breath Sounds, No Accessory Muscle Use, No Respiratory Distress Cardiovascular: Regular Rate, Rhythm, No Edema, No Gallop, No JVD, No Murmur, Normal Peripheral Pulses Gastrointestinal: Normal Bowel Sounds, Non Tender, Soft Extremity: Normal Capillary Refill, Normal Inspection, Non Tender, No Calf Tenderness, No Pedal Edema Skin: Normal Color, Warm/Dry Neurologic/Psychiatric: Alert, Oriented x3, No Motor/Sensory Deficits, Normal Mood/Affect, crystal flat grinder II-XII Norm as Tested Allergies: Coded Allergies: No Known Drug Allergies (Unverified , 07/16/19) Discharge Summary Date of Admission Jul 16, 2019 at 22:22 Date of Discharge Discharge Date: Jul 18, 2019 Admission Diagnosis Assessment: Subacute CVA with left sided weakness HTN Smoker DM Plan: MRI confirmed CVA HGA1C BP management Discharge Diagnosis Assessment: 1. CVA 2. EtOH abuse noted 3. Diagnosis of HTN 4. Diagnosis of HLP 5. Chronic smoker 6. High blood sugars 7. Hypokalemia Plan: 1. Stroke protocol 2. B1 supplimentation and monitoring withdrawal 3. Treat with BP med other than lisinopril for now 4. Initial cholesterol treatment. 5. Smoking cessation 6. Diet modification and medication for blood sugars. 7. Electrolyte management. (1) CVA (cerebral vascular accident) Status: Acute Qualifiers: Qualified Codes: I63.9 - Cerebral infarction, unspecified (2) Left-sided weakness Status: Acute (3) Hypertension Status: Chronic Qualifiers: Qualified Codes: I10 - Essential (primary) hypertension (4) Hypokalemia Status: Acute Clinical Quality Measures DVT/VTE Risk/Contraindication: Risk Factor Score Per Nursin RFS Level Per Nursing on Admit: 2=Moderate KAYA WILBURN DO 07/18/19 2217: Discharge Summary Hospital Course Hospital Course Hospital course: Pt had a [facility] after she was found to have a sub-acute stroke confirmed on MRI with left sided weakness. Cardiology was consulted, Echocardiogram, Carotid ultrasound and labs obtained. Pt was placed on statin therapy, Aspirin therapy, and was deemed stable for DC in inpatient rehab to work on strengthening of the left side. Discharge Physical Examination Allergies: Coded Allergies: No Known Drug Allergies (Unverified , 07/16/19) Supervisory-Addendum Brief Verification & Attestation Participated in pt care: history, MDM, physical Personally performed: exam, history, MDM, supervision of care Care discussed with: Medical Student Procedures: n/a Results interpretation: Verified all documentation Verification and Attestation of Medical Student E/M Service A medical student performed and documented this service in my presence. I reviewed and verified all information documented by the medical student and made modifications to such information, when appropriate. I personally performed the physical exam and medical decision making. Kaya Wilburn, Jul 18, 2019,22:16 [facility] Jul 18, 2019 10:28 KAYA WILBURN DO Jul 18, 2019 22:17
[2019-07-23] MEDS ORDERED: POTA10TA36 PO (20:15)
[2019-07-23] MEDS ORDERED: METO-387 PO (20:15)
[2019-07-23] MEDS ORDERED: MULT-178 PO (20:15)
[2019-07-23] MEDS ORDERED: MAGN400T6 PO (20:15)
[2019-07-23] MEDS ORDERED: AMLO5TAB9 PO (20:15)
[2019-07-23] MEDS ORDERED: LORA-404 PO (20:15)
[2019-07-23] MEDS ORDERED: GLYB2.5T4 PO (20:15)
[2019-07-23] MEDS ORDERED: ATOR80TA76 PO (20:15)
[2019-07-23] MEDS ORDERED: PHEN-826 PO (20:15)
== END 2019-07-18 11:00 | DRG 65 ==
LOC: ER FS 19:17 → 4TH 22:22
PROVIDERS: ADMIT Internal Medicine; ATTEND Internal Medicine
DX: I63.9 Cerebral infarction, unspecified (principal); G81.94 Hemiplegia, unspecified affecting left nondominant side; I10 Essential (primary) hypertension; E87.6 Hypokalemia; F17.210 Nicotine dependence, cigarettes, uncomplicated; R20.0 Anesthesia of skin; E78.00 Pure hypercholesterolemia, unspecified; E78.5 Hyperlipidemia, unspecified; G62.9 Polyneuropathy, unspecified; F41.9 Anxiety disorder, unspecified; R73.9 Hyperglycemia, unspecified; F10.10 Alcohol abuse, uncomplicated; I65.23 Occlusion and stenosis of bilateral carotid arteries; R00.0 Tachycardia, unspecified; Z91.19 Patient's noncompliance with other medical treatment and regimen
CPT/HCPCS: 36415; 70450; 70551; 71045; 80053; 80061; 80306; 81000; 82962; 83036; 83735; 84484; 85025; 85610; 85730; 93005; 93041; 93306; 93880; 96361; 96365

== ENCOUNTER 2019-07-18 10:33 | Inpatient (IN) | payer OTHER ==
[~2019-07-18] VITALS: Ht 165.1 cm; Wt 66.8 kg
[~2019-07-18 10:33] MED LIST: ASPI-983 PO; LISI-552 PO
[2019-07-18 11:00] VITALS: BP 152/90
--- NOTE | 2019-07-18 11:43 | NUR ---
REVIEWED MED REC IT WAS REPORTED UPON ADMISSION TO 4TH FLOOR. NO CHANGES WERE MADE WHEN THE PATIENT DISCHARGED TO REHAB.
[2019-07-18] MEDS ORDERED: cloNIDine 0.1 MG (CATAPRES) TAB PO PRN (11:45)
[2019-07-18] MEDS ORDERED: fentaNYL INJECTION 100 MCG/2 ML AMP IVP PRN (11:45)
[2019-07-18] MEDS ORDERED: ONDANSETRON 4 MG (ZOFRAN) ORAL DISSOLVE TAB SL PRN (11:45)
[2019-07-18] MEDS ORDERED: ONDANSETRON 4 MG/2 ML (SDV) Z0FRAN IV PRN (11:45)
[2019-07-18] MEDS ORDERED: LORazepam 1 MG (ATIVAN) TAB PO PRN (11:45)
[2019-07-18] MEDS ORDERED: 1/2 NS IV SOLUTION 1,000 ML IV PRN (11:45)
[2019-07-18] MEDS ORDERED: ANTACID SUSP 30 ML UDC (MYLANTA) PO PRN (11:45)
[2019-07-18] MEDS ORDERED: NS W/KCL 20 MEQ/L 1,000 ML IV SCH (11:45)
--- NOTE | 2019-07-18 11:54 | Physical Therapy Evaluation ---
PT Evaluation-General Medical Diagnosis Admission Date Jul 18, 2019 at 11:04 Medical Diagnosis: CVA Onset Date: Jul 16, 2019 Therapy Diagnosis Therapy Diagnosis: impaired mobility, strength, endurance, balance Height/Weight Weight (Pounds): 151 Weight (Ounces): 4.0 Referral Physician: Kaya Ayoub DO Reason for Referral: Evaluation/Treatment Medical History Pertinent Medical History: HTN Additional Medical History Past Medical History Surgeries: Yes Section, Tonsillectomy Respiratory: No Cardiac: Yes High Cholesterol, Hypertension Neurological: No Genitourinary: No Gastrointestinal: No Musculoskeletal: No Endocrine: No HEENT: No Cancer: No Psychosocial: No Integumentary: No Reviewed History: Yes Reviewed History: Yes Social History Home: Single Level Current Living Status: Significant Other Entry Into Home: Stairs Without Railing PT Steps Into Home: 4 Prior/Core FIM Prior Level of Function Therapy Code Descriptions/Definitions Functional [place] Measure: 0=Not Assessed/NA 4=Minimal Assistance 1=Total Assistance 5=Supervision or Setup 2=Maximal Assistance 6=Modified [place] 3=Moderate Assistance 7=Complete [place] Therapy Quality Codes: 6 Independent with activity with or without an assistive device 5 Patient requires set up or clean up by helper. Patient completes activity by themselves 4 Supervision or touching assist (CGA). Mcdonald provide cues , steadying assist 3 The helper provides less than half the effort to complete the activity 2 The helper provides more than half the effort to complete the activity 1 Dependent. The helper does all the effort to complete an activity 7 Patient refused to complete or attempt activity 9 The patient did not perform the activity before the current illness or injury 88 Not attempted due to Medical conditions or safety concerns Functional Abilities and Goals: Independent: Patient completed the activities by him/herself, with or without an assistive device, with no assistance from a helper. Needed Some Help: Patient needed partial assistance from another person to complete activities. Dependent: A helper completed the activities for the patient. Unknown: Not Applicable: Bed Mobility: 7 Transfers (B,C,W/C) (FIM): 7 Gait: 7 Stairs: 7 Indoor Mobility (Ambulation): Independent Stairs: Independent PT Evaluation-Current Subjective Patient in bathroom with nurse aide pre tx, agrees to PT, has 4/10 pain in low back. Pt/Family Goals to be independent at home Objective Patient Orientation: Person, Place, Situation Attachments: IV ROM/Strength ROM Lower Extremities WNL Strenght Lower Extremities LLE (hip flexion 3/5, knee flexion 3+/5, knee extension 4/5, dorsiflexion 3/5), RLE (hip flexion 4/5, knee flexion 5/5, knee extension 5/5, dorsiflexion 5/5) Neuromuscular (Tone, Coordination, Reflexes) good tracking and peripheral vision Sensory Vision: Functional Hearing: Functional Sensation Right Lower Extremit: Impaired Sensation Left Lower Extremity: Intact Sensation Lower Extremities Patient states she has some impaired sensation in her right foot, most likely due to her back. Transfers Therapy Code Descriptions/Definitions Functional [place] Measure: 0=Not Assessed/NA 4=Minimal Assistance 1=Total Assistance 5=Supervision or Setup 2=Maximal Assistance 6=Modified [place] 3=Moderate Assistance 7=Complete [place] Therapy Quality Codes: 6 Independent with activity with or without an assistive device 5 Patient requires set up or clean up by helper. Patient completes activity by themselves 4 Supervision or touching assist (CGA). Mcdonald provide cues , steadying assist 3 The helper provides less than half the effort to complete the activity 2 The helper provides more than half the effort to complete the activity 1 Dependent. The helper does all the effort to complete an activity 7 Patient refused to complete or attempt activity 9 The patient did not perform the activity before the current illness or injury 88 Not attempted due to Medical conditions or safety concerns Transfers (B, C, W/C) (FIM): 4 Scootin Rollin Roll Left to Right (QC): 4 Supine to/from Sit: 5 Sit to/from Stand: 4 Sit to Lying (QC): 4 Lying to Sitting/Side of Bed(Q: 4 Sit to Stand (QC): 4 Chair/Ljc-jc-Krsdm Xfer(QC): 4 Car Transfer (QC): 4 Patient performs bed mobility with SBA, supine <-> sit with SBA, sit <-> stand with CGA, transfers with CGA, car transfer CGA. Patient has some difficulty with supine to sit but can do it without assist other than cues for positioning. Patient needs cues for hand placement and safety. Gait Does the Patient Walk?: Yes Mode of Locomotion: Walk Anticipated Mode of Locomotion: Walk Gait (FIM): 4 Walk 10 feet (QC): 4 Walk 50 ft with 2 Turns(QC): 4 Walk 150 ft (QC): 4 Walking 10ft/uneven surface-QC: 4 Distance: 200'x2 Gait Level of Assist: 4 Gait Persons Needed: 1 Gait Assistive Device: FWW Comments/Gait Description Patient can ambulate 200' with CGA using a rolling walker with CGA (including 50' with at least 2 turns of 90 degrees and 10' over an uneven surface). Patient has poor heel strike on the left and uncoordinated steps. Wheelchair Training Does the Pt Use a Wheelchair?: No Stairs Stairs (FIM): 1 #of Steps: 1 Level of Assist: 4 1 Step (curb) (QC): 3 Assistive Device: Walker Patient can go up and down 1 step using a rolling walker with min assist. Patient needs cues for foot placement. Balance Sitting Static: Normal Sitting Dynamic: Normal Standing Static: Fair Standing Dynamic: Fair Treatment NuStep level 5 for 10 min Assessment/Needs Patient has impaired mobility, strength, endurance, balance. Handed off patient to OT after PT eval. Patient often needs cues for safety and seems slightly impulsive. Rehab Potential: Fair PT Short Term Goals Short Term Goals Time Frame: Jul 25, 2019 Transfers (B,C,W/C) (FIM): 5 Gait (FIM): 5 Gait Distance Comment: 200' Gait Level of Assist: 5 Gait Assistive Device: FWW PT Fishing Lure Assembler Goals Usp Goals PT Fishing Lure Assembler Goals Time Frame: Aug 08, 2019 Transfers (B,C,W/C) (FIM): 6 Sit to Lying (QC): 6 Lying-Sitting on Side/Bed(QC): 6 Sit to Stand (QC): 6 Rollin Roll Left to Right (QC): 6 Chair/Dhy-ed-Oazqv Xfer(QC): 6 Car Transfer (QC): 6 Gait (FIM): 6 Distance: 300' Walk 10 feet (QC): 6 Walk 10ft-Uneven Surface(QC): 6 Walk 50ft with 2 Turns (QC): 6 Walk 150 ft (QC): 6 Gait Level of Assist: 6 Gait Assistive Device: FWW Stairs (FIM): 2 # of Steps: 4 1 Step (curb) (QC): 4 4 Steps (QC): 4 Stairs Level Of Assist: 5 PT Plan Problem List Problem List: Activity Tolerance, Functional Strength, Safety, Balance, Gait, Transfer, Bed Mobility Treatment/Plan Treatment Plan: Continue Plan of Care Treatment Plan: Bed Mobility, Education, Functional Activity Harsh, Functional Strength, Group Therapy, Gait, Safety, Therapeutic Exercise, Transfers Treatment Duration: Aug 08, 2019 Frequency: At least 5 of 7 days/Wk (IRF) Estimated Hrs Per Day: 1.5 hours per day Patient and/or Family Agrees t: Yes Safety Risks/Education Patient Education: Gait Training, Transfer Techniques, Steps, Correct Positioning, Safety Issues Teaching Recipient: Patient Teaching Methods: Demonstration, Discussion Response to Teaching: Reinforcement Needed Discharge Recommendations Plan Patient will perform bed mobility and transfer training, balance and endurance training, functional strengthening, stair training, gait training, and education, to improve functional mobility and independence at home. Therapy Discharge Recommendati: Other, See Comments (home with family) Time/GCodes Time In: 1055 Time Out: 1150 Total Billed Treatment Time: 55 Total Billed Treatment 1 visit EVM 30' EX 10' FA 15' BOY HURD PT Jul 18, 2019 11:54
--- NOTE | 2019-07-18 12:59 | PM&R H&P / Post Admit Assess ---
History of Present Illness HPI/Chief Complaint CC: CVA w/left sided weakness HPI: (Med-surg Hospital course: Pt [facility] after she was found to have a sub-acute stroke confirmed on MRI with left sided weakness. Cardiology was consulted, Echocardiogram, Carotid ultrasound and labs obtained. Pt was placed on statin therapy, Aspirin therapy, and was deemed stable for DC in inpatient rehab to work on strengthening of the left side). Patient is currently ready for rehab and will maintain on statin treatment and ASA and complete CVA w/u while admitted to IRF. Source: patient Date Seen 07/18/19 Time Seen by a Provider: 13:00 Attending Physician Kaya Ayoub DO PCP No,Local Physician Referring Physician Date of Admission Jul 18, 2019 at 11:04 Home Medications & Allergies Home Medications Reviewed patient Home Medication Reconciliation performed by pharmacy medication reconciliations voice and data technician and/or nursing. Patients Allergies have been reviewed. Allergies Allergies Coded Allergies No Known Drug Allergies (Unverified07/16/19) Past Zgadrvm-[id number]-[id number] Hx Past Med/Social Hx: Reviewed Nursing Past Med/Soc Hx, Reviewed and Corrections made Patient Social History Marrital Status: cohabiting Employed/Student: unemployed Alcohol Use: Regular Use Alcohol Beverage of Choice: Whiskey Smoking Status: Current Everyday Smoker Type Used: Cigarettes 2nd Hand Smoke Exposure: Yes Recent Hopitalizations: No Seasonal Allergies Seasonal Allergies: No Past Medical History Surgeries: Section, Tonsillectomy Cardiac: High Cholesterol, Hypertension Neurological: Stroke (07/17/19) Reproductive: No Sexually Transmitted Disease: No HIV/AIDS: No Female Reproductive Disorders: Denies Psychosocial: Anxiety History of Blood Disorders: No Adverse Reaction to Blood Rosario: No Family History "SEVERAL MINI STROKES" G8 SISTER Completed stroke G8 BROTHER (63) FH: migraine headache 19 MOTHER Fibromyalgia 19 MOTHER Myocardial infarction 19 FATHER CAD Over 55 Years Old, CVA Review of Systems Constitutional: see HPI EENTM: no symptoms reported Respiratory: no symptoms reported Cardiovascular: no symptoms reported Gastrointestinal: no symptoms reported Genitourinary: no symptoms reported Musculoskeletal: no symptoms reported Skin: no symptoms reported Psychiatric/Neurological: Weakness (left sided) Physical Exam Exam Vital Signs Vital Signs Date Time Temp Pulse Resp B/P (MAP) Pulse Ox O2 Delivery O2 Flow Rate FiO2 07/18/19 21:40 38.4 07/18/19 18:00 92 16 154/94 (114) 93 Room Air 07/18/19 11:00 0.00 Capillary Refill : General Appearance: No Apparent Distress, WD/WN, Chronically ill HEENT: PERRL/EOMI, Normal ENT Inspection, Pharynx Normal, Moist Mucous Membranes Neck: Full Range of Motion, Normal Inspection, Non Tender, Supple Respiratory: Chest Non Tender, Lungs Clear, Normal Breath Sounds, No Accessory Muscle Use, No Respiratory Distress Cardiovascular: Regular Rate, Rhythm, No Edema, No Gallop, No JVD, No Murmur Gastrointestinal: Normal Bowel Sounds, No Organomegaly, No Pulsatile Mass, Non Tender, Soft Back: Normal Inspection, No CVA Tenderness, No Vertebral Tenderness Extremity: Normal Capillary Refill, Normal Inspection, Normal Range of Motion, Non Tender, No Calf Tenderness, No Pedal Edema Neurologic/Psychiatric: Alert, Oriented x3, Normal Mood/Affect, device sales consultant II-XII Norm as Tested, Motor Weakness (left upper and lower extremity 1-2/5) Skin: Normal Color, Warm/Dry Lymphatic: No Adenopathy Results Results/Procedures Labs Patient resulted labs reviewed. Assessment/Plan Assessment and Plan (1) CVA (cerebral vascular accident) Status: Acute Qualifiers: CVA mechanism: unspecified Qualified Codes: I63.9 - Cerebral infarction, unspecified (2) Diabetes Status: Chronic Qualifiers: Diabetes mellitus type: type 2 Diabetes mellitus longterm insulin use: with remote computer terminal operator use Diabetes mellitus complication status: with circulatory complication Diabetes mellitus complication detail: with other circulatory complications Qualified Codes: E11.59 - Type 2 diabetes mellitus with other circulatory complications; Z79.4 - senior living (current) use of insulin (3) Hyperlipemia Status: Chronic Qualifiers: Hyperlipidemia type: mixed hyperlipidemia Qualified Codes: E78.2 - Mixed hyperlipidemia (4) Left-sided weakness Status: Acute (5) Hypertension Status: Chronic Qualifiers: Hypertension type: essential hypertension Qualified Codes: I10 - Essential (primary) hypertension (6) Hypokalemia Status: Acute Post Admission Physician Asses Date seen by provider: Jul 18, 2019 Time seen by provider: 13:00 Admisison Dx: (1) CVA (cerebral vascular accident) Status: Acute The preadmission screen agrees with the post admission assessment that the patient is a good candidate for inpatient rehabilitation. The patient will have a comprehensive program of inpatient rehabilitation with a goal of maximizing level of functional independence prior to discharge home with family. The patient will have PT/OT ninety minutes per day, each discipline, five days a week for gait, strengthening, conditioning, balance, ADLs, any patient/family/caregiver training as necessary. Speech therapy to do cognitive assessment and treat as indicated. Rehabilitation nursing to assist with bowel, bladder, skin, wound care, medication administration, pain management. Gate Services Supervisor to assist with discharge planning, community reentry. SCD's for DVT prophylaxis. She appears to be well motivated to participate in three hours of therapy a day. She should be able to tolerate three hours of therapy a day from a medical standpoint. She should benefit from the three hours of therapy a day. She has a reasonable discharge plan, reasonable discharge rehabilitation goals and a supportive family. She has various comorbidities that need to be closely monitored with medications and treatments adjusted on a daily basis as needed. These include: see list Barriers to discharge for this patient who had been independent prior to this are for her to be modified independent to supervision for ADLs and mobility skills prior to discharge home with family, so as to lessen the burden of the caregivers. Risks for this patient include: 1. Fall 2. Fracture 3. DVT 4. Pulmonary embolism 5. Wound infection 6. Skin breakdown 7. Contractures 8. Poorly controlled pain 9. Urinary retention 10. UTI 11. Respiratory infection 12. Aspiration Estimated Length of Stay: 10 days Prognosis: Rehab prognosis appears good for goal of discharge home with family modified independent to supervision for ADLs and mobility skills. KAYA AYOUB DO Jul 18, 2019 12:59
[2019-07-18] MEDS: KCL 10 MEQ TAB (MICRO K) PO SCH ×3 (13:17→20:45)
--- NOTE | 2019-07-18 14:48 | Physical Therapy Daily Note ---
PT Daily Note-Current Subjective Patient reports fatigue. Agrees to PT. Mental Status Patient Orientation: Normal For Age Transfers Therapy Code Descriptions/Definitions Functional [place] Measure: 0=Not Assessed/NA 4=Minimal Assistance 1=Total Assistance 5=Supervision or Setup 2=Maximal Assistance 6=Modified [place] 3=Moderate Assistance 7=Complete [place] Therapy Quality Codes: 6 Independent with activity with or without an assistive device 5 Patient requires set up or clean up by helper. Patient completes activity by themselves 4 Supervision or touching assist (CGA). [place] provide cues , steadying assist 3 The helper provides less than half the effort to complete the activity 2 The helper provides more than half the effort to complete the activity 1 Dependent. The helper does all the effort to complete an activity 7 Patient refused to complete or attempt activity 9 The patient did not perform the activity before the current illness or injury 88 Not attempted due to Medical conditions or safety concerns Transfers (B, C, W/C) (FIM): 4 Scootin Sit to/from Stand: 4 Sit to Stand (QC): 4 Car Transfer (QC): 5 Gait Training Does the Patient Walk?: Yes Gait (FIM): 4 Distance (FIM): 3=150 ft Distance: 150' x 3 Walk 10 feet (QC): 4 Walk 50 ft with 2 Turns(QC): 4 Walk 150 ft (QC): 4 Gait Level of Assist: 4 Gait Assistive Device: FWW VC's for body placement in FWW due to extended UE's. Noted left LE lag with self correct Exercises Seated Therapy Exercises: Ankle pumps, Long arc quads, Hip flexion Seated Reps: 20 NuStep Minutes: 12 NuStep Workload: 4 (to improve reciprocal pattern and increase strength) Assessment Patient returned to recliner with needs met. Patient did toilet self prior to therapy. PT to increase activity as tolerated by patient. PT Short Term Goals Short Term Goals Time Frame: Jul 25, 2019 Transfers (B,C,W/C) (FIM): 5 Gait (FIM): 5 Gait Distance Comment: 200' Gait Level of Assist: 5 Gait Assistive Device: FWW PT Piano Machine Operator Goals Piano Machine Operator Goals PT Longterm Goals Time Frame: Aug 08, 2019 Transfers (B,C,W/C) (FIM): 6 Sit to Lying (QC): 6 Lying-Sitting on Side/Bed(QC): 6 Sit to Stand (QC): 6 Rollin Roll Left to Right (QC): 6 Chair/Ywn-xu-Ghmhw Xfer(QC): 6 Car Transfer (QC): 6 Gait (FIM): 6 Distance: 300' Walk 10 feet (QC): 6 Walk 10ft-Uneven Surface(QC): 6 Walk 50ft with 2 Turns (QC): 6 Walk 150 ft (QC): 6 Gait Level of Assist: 6 Gait Assistive Device: FWW Stairs (FIM): 2 # of Steps: 4 1 Step (curb) (QC): 4 4 Steps (QC): 4 Stairs Level Of Assist: 5 PT Plan Treatment/Plan Treatment Plan: Continue Plan of Care Treatment Plan: Bed Mobility, Education, Functional Activity Harsh, Functional Strength, Group Therapy, Gait, Safety, Therapeutic Exercise, Transfers Treatment Duration: Aug 08, 2019 Frequency: At least 5 of 7 days/Wk (IRF) Estimated Hrs Per Day: 1.5 hours per day Patient and/or Family Agrees t: Yes Time/GCodes Time In: 1415 Time Out: 1445 Total Billed Treatment Time: 30 Total Billed Treatment 1 visit GT 14 min EX 16 min VENANCIO HARGROVE PT Jul 18, 2019 14:48
[2019-07-18] MEDS: ACETAMINOPHEN 325 MG TABLET PO PRN ×2 (15:35→22:53)
--- NOTE | 2019-07-18 15:38 | Occupational Therapy Eval ---
OT Evaluation-General/PLF Medical Diagnosis Admission Date Jul 18, 2019 at 11:04 Medical Diagnosis: CVA/ left sided weakness Onset Date: Jul 16, 2019 Therapy Diagnosis Therapy Diagnosis: Decreased ADL skills Height/Weight Weight (Pounds): 151 Weight (Ounces): 4.0 Weight Bear Status Weight Bearing Restriction: Weight Bearing/Tolerated Referral Physician: Kaya Ayoub DO Referral Reason: Activity Tolerance, Self Care, Evaluation/Treatment, Strengthening/ROM Medical History Pertinent Medical History: HTN Current History Left sided weakness from CVA Reviewed History: Yes Social History Home: Single Level Current Living Status: Significant Other Entry Into Home: Stairs Without Railing Steps Into Home: 4 ADL-Prior Level of Function Therapy Code Descriptions/Definitions Functional [place] Measure: 0=Not Assessed/NA 4=Minimal Assistance 1=Total Assistance 5=Supervision or Setup 2=Maximal Assistance 6=Modified [place] 3=Moderate Assistance 7=Complete [place] Therapy Quality Codes: 6 Independent with activity with or without an assistive device 5 Patient requires set up or clean up by helper. Patient completes activity by themselves 4 Supervision or touching assist (CGA). [place] provide cues , steadying assist 3 The helper provides less than half the effort to complete the activity 2 The helper provides more than half the effort to complete the activity 1 Dependent. The helper does all the effort to complete an activity 7 Patient refused to complete or attempt activity 9 The patient did not perform the activity before the current illness or injury 88 Not attempted due to Medical conditions or safety concerns Functional Abilities and Goals: Independent: Patient completed the activities by him/herself, with or without an assistive device, with no assistance from a helper. Needed Some Help: Patient needed partial assistance from another person to complete activities. Dependent: A helper completed the activities for the patient. Unknown: Not Applicable: ADL PLOF Comments Pt. states that she was independent prior to this hospitalization. Self Care: Independent Functional Cognition: Independent DME/Equipment: Tub/Shower DME/Equipment Comments Pt. thinks that she might have an old walker at home. Spouse to check. Occupation: [employer] Drive Self: Yes OT Current Status Subjective Pt. does not report pain. Does report that her left LE is somewhat numb. Becomes tearful during treatment about her current situation. Appearance Pt. is seen twice for full evaluation. Pt. alert and oriented each time. Mental Status/Objective Patient Orientation: Person, Place, Time, Situation Attachments: IV Current Hand Dominance: Right Upper Extremity ROM Right- WFL Left- Pt. able to full flex shoulder, but it is slow. All other planes available. Upper Extremity Sensation Intact bilaterally Upper Extremity Strength Left- 2/5 overall strenth right- 4/5 ADL-Treatment Eating (FIM): 5 (Set up to eat lunch) Eating (QC): 5 Grooming (FIM): 5 (Set up to brush hair.) Bathing (FIM): 4 (CGA in stance. Pt. showered.) Shower/Bathe Self (QC): 4 Upper Body Dressing (FIM): 5 Upper Body Dressing (QC): 4 Lower Body Dressing (FIM): 3 (Pt. able to doff/don socks. Able to doff shoes but required assist to don them. Assist needed to thread brief and pants over feet. Minimal assist to adjust over left hip in stance.) Lower Body Dressing (QC): 3 On/Off Footwear (QC): 3 Toileting (FIM): 4 Toileting Hygiene (QC): 4 Transfers (B, C, W/C) (FIM): 4 Toilet/Commode Transfer (FIM): 4 Toilet Transfer (QC): 4 Shower Transfer (FIM): 4 Other Treatments After ADLs, pt. ambulated to therapy gym. Pt. able to demonstrate at this time full ROM in left UE. Decreased fine motor control and strength. Worked on bilateral coordination activities with riddle bag, fine motor coordination activity with threading beads, and strength activity with resistive clothespins. Pt. doing well at utilizing left hand in tasks. Ambulated back to room after OT activity. All needs met. Education OT Patient Education: Correct positioning, Exercise program, Modified ADL techniques, Progress toward Goal/Update tx plan, Purpose of tx/functional activities, Reviewed precautions, Rehab process, Transfer techniques Teaching Recipient: Patient Teaching Methods: Demonstration, Discussion Response to Teaching: Verbalize Understanding, Return Demonstration OT Short Term Goals Short Term Goals Transfers (B,C,W/C) (FIM): 5 1=Demonstrate adherence to instructed precautions during ADL tasks. 2=Patient will verbalize/demonstrate understanding of assistive devices/modifications for ADL. 3=Patient will improve strength/tolerance for activity to enable patient to perform ADL's. OT Fpc Goals Fpc Goals Time Frame: Aug 01, 2019 Eating (FIM): 6 Eating (QC): 6 Groomin Oral Hygiene (QC): 6 Bathing(FIM): 5 Shower/Bathe Self (QC): 4 Upper Body Dressing(FIM): 6 Upper Body Dressing (QC): 6 Lower Body Dressing(FIM): 6 Lower Body Dressing (QC): 6 On/Off Footwear (QC): 6 Toileting(FIM): 6 Toileting Hygiene (QC): 6 Transfers (B,C,W/C) (FIM): 6 Toilet/Commode Transfer(FIM): 6 Toilet/Commode Transfer (QC): 6 Shower Transfer(FIM): 5 Additional Goals: 1-Demonstrate ADL Tasks, 2-Verbalize Understanding, 3- ImproveStrength/Harsh 1=Demonstrate adherence to instructed precautions during ADL tasks. 2=Patient will verbalize/demonstrate understanding of assistive devices/modifications for ADL. 3=Patient will improve strength/tolerance for activity to enable patient to perform ADL's. OT Education/Plan Problem List/Assessment Assessment: Decreased Activ Tolerance, Decreased UE Strength, Dependent Transfers, Impaired Bed Mobility, Impaired Coordination, Impaired Funct Balance, Impaired I ADL's, Impaired Self-Care Skills, Restricted Funct UE ROM Discharge Recommendations Plan/Recommendations: Continue POC Therapy Discharge Recommendati: Post Acute OT Treatment Plan/Plan of Care Treatment,Training & Education: Yes Patient would benefit from OT for education, treatment and training to promote independence in ADL's, mobility, safety and/or upper extremity function for ADL's. Plan of Care: ADL Retraining, Functional Mobility, Group Exercise/Act as Ind, UE Funct Exercise/Act Treatment Duration: Aug 01, 2019 Frequency: At least 5 of 7 days/Wk (IRF) Estimated Hrs Per Day: 1.5 hours per day Agreement: Yes Rehab Potential: Good Time/GCodes Start Time: 11:50 Stop Time: 14:15 Total Time Billed (hr/min): 95 Billed Treatment Time 0181-2227 1, EVM x 10minutes, FA x 15minutes 7404-7405 1, ADL x 45minutes, FA x 25minutes ZEENAT ROYAL OT Jul 18, 2019 15:38
--- NOTE | 2019-07-18 15:53 | ST Cognitive Linguistic Eval ---
Speech Evaluation-General Medical Diagnosis CVA Onset Date: Jul 16, 2019 Therapy Diagnosis Therapy Diagnosis: Cognitive-communication Precautions Precautions: Fall Precautions/Isolations: Fall Prevention, Standard Precautions Referral Referring Physician: Dr. Ayoub Reason for Referral: Evaluation/Treatment Medical History Pertinent Medical History: HTN HTN Current History CVA Reviewed History: Yes Social History Home: Single Level Current Living Status: Significant Other Speech PLF-Current Status Prior Level of Function Patient lived at home with her and was independent with her daily needs. Subjective Patient was cooperative with the cognitive assessment. Language Eval: Auditory Comprehends Simple Yes/No Ques: Functional Indent/Objects Multiple [place]: Functional Ident/Pics in Multiple [place]zel: Functional Follows 1-Step Commands: Functional Follows Complex Directions: Functional Follows General Conversations: Functional Language Eval: Verbal Language Completes Spontaneous Greeting: Functional Produces Auto, Serial Info: Functional Imitates Simple Words/Phrases: Functional Word Finding: Functional Requests Basic Needs: Functional States Basic Personal Info: Functional Expresses Complex Ideas: Functional Objective Cognitive Domain Attention: WNL Memory: Mild Problem Solving: Functional Executive Functions: WNL Visuospatial Skills: WNL Composite Severity Rating: WNL Clock Drawing Severity Rating: WNL Objective Formal/Standardized Tests [facility] Mental Status ([facility] [place]) Results 28/30, normal range of function Oral Motor/Speech Production Within Normal Function Impression The patient is a pleasant 53 year old female who was admitted to the [facility] s/p CVA. The patient was given the SLUMS at bedside with a score of 28/30. At this time the patient does not require skilled ST services. Communication/Social Cognition Comprehension: 7 Expression: 7 Social Interaction: 7 Problem Solvin Memory: 7 Speech Patient Assess Expression of Ideas/Wants: Expression (4) Understanding Verbal Content: Understands (4) Brief Interview-Mental Status: Yes Repetition of Three Words: Three (3) Temporal Orientation: Year: Correct (3) Temporal Orientation: Month: Accurate within 5 days(2) Temporal Orientation: Day: Correct (1) Recall : Wear to say "Sock": Yes, no cue required (2) Recall : Color: Yes, no cue required (2) Recall : Bed: Yes,after cueing (1) Memory/Recall Ability: Current season, That he or she is in a hsp/hsp unit Speech-Plan Patient/Family Goals Patient/Family Goals: The patient plans on returning to her home where she lives with her post rehab. Treatment Plan Speech Therapy Treatment Plan: Discontinue ST The patient does not require skilled ST services at this time. Treatment Duration: Jul 18, 2019 Frequency: 1 time per week Estimated Hrs Per Day: .25 hour per day Rehab Potential: Fair Barriers to Learning: None identified Pt/Family Agrees to Plan: Yes Safety Risks/Education Teaching Recipient: Patient, Significant Other Teaching Methods: Discussion Response to Teaching: Verbalize Understanding Education Topics Provided: Safety within her room and communication of wants/needs. Time Speech Therapy Time In: 15:30 Speech Therapy Time Out: 15:45 Total Billed Time: 15 Billed Treatment Time 1, SPSNDCOMP TIFFANIE Pena Jul 18, 2019 15:53
[2019-07-18 18:00] VITALS: BP 154/94
--- NOTE | 2019-07-18 19:25 | NUR ---
bedside report received from FANI JACKSON, assume care of pt
[2019-07-18] MEDS: MAGNESIUM OXIDE (MAG-OX)400 MG TAB PO SCH (20:45)
--- NOTE | 2019-07-18 20:50 | NUR ---
c/o back pain level 10/10 on numeric scale, fentanyl 25mcg slow iv given
--- NOTE | 2019-07-18 20:55 | NUR ---
assessments & interventions completed, see assessments & interventions
--- NOTE | 2019-07-18 21:15 | NUR ---
resting quietly in bed, pain level 0/10 on flacc scale
--- NOTE | 2019-07-18 22:53 | NUR ---
temp 38.3 , Tylenol 650mg po given
--- NOTE | 2019-07-18 23:20 | NUR ---
temp 39.1 notified of temp, orders received for Motrin 400mg po q 4hrs, blankets taken
--- NOTE | 2019-07-19 00:05 | NUR ---
temp 37.1
[2019-07-19] MEDS: IBUPROFEN TABLET 200 MG TAB PO PRN ×2 (00:10→21:09)
--- NOTE | 2019-07-19 00:10 | NUR ---
pain level 3/10 Motrin 400mg po given
--- NOTE | 2019-07-19 00:54 | NUR ---
resting quietly in bed, pain level 0/10 on flacc scale
[2019-07-19 05:38] VITALS: BP 142/80
[2019-07-19] MEDS: THIAMINE 100 MG (VITAMIN B-1) TAB PO SCH (06:52)
[2019-07-19] MEDS: MULTIVIT W/MINERALS TAB (THERAGRAN M) PO SCH (06:52)
--- NOTE | 2019-07-19 07:26 | NUR ---
bedside report given to BARB JACKSON
[2019-07-19 08:00] VITALS: BP_SYST 114; BP_SYST 137; BP_DIAS 80; BP_DIAS 92
--- NOTE | 2019-07-19 09:00 | NUR ---
DR. WILBURN INFORMED OF PATIENT COMPLAINING OF URINE SMELLING LIKE A BARN AND URINARY FREQUENCY. WILL GET UA AND START ON PYRIDIUM. WILL DC FENTANYL FOR BACK PAIN AND START VOLTAREN CREAM AND KAD. AFEBRILE THIS AM. BP DOES DIFFERENTIATE BETWEEN MANUAL AND AUTOMATIC CHECKS - SEE VS INTERVENTION. LEFT LEG STRONGER THAN LEFT ARM.
[2019-07-19] MEDS ORDERED: DICLOFENAC 1% GEL 100 GM (VOLTAREN) TUBE TOP PRN (09:30)
[2019-07-19 09:41] LABS: HEMOGLOBIN 13.9 G/DL (11.5-16.0); MEAN PLATELET VOLUME 9.8 FL (7.4-10.4); RED CELL DISTRIBUTION WIDTH 12.6 % (10.0-14.5); WHITE BLOOD COUNT 11.5 10^3/uL (4.3-11.0)
[2019-07-19] MEDS: ASPIRIN E.C. 81 MG (ECOTRIN) TAB PO SCH (09:52)
[2019-07-19] MEDS: FOLIC ACID 1 MG TAB PO SCH (09:52)
[2019-07-19] MEDS: MAGNESIUM OXIDE (MAG-OX)400 MG TAB PO SCH ×2 (09:52→21:09)
[2019-07-19] MEDS: amLODIPine 5 MG (NORVASC) TAB PO SCH (09:52)
[2019-07-19 10:06] LABS: ALANINE AMINOTRANSFERASE 13 U/L (0-55); ALBUMIN 3.9 GM/DL (3.2-4.5); ALKALINE PHOSPHATASE 99 U/L (40-136); BILIRUBIN,TOTAL 0.9 MG/DL (0.1-1.0); BUN/CREATININE RATIO 13; CALCIUM 9.9 MG/DL (8.5-10.1); CARBON DIOXIDE 27 MMOL/L (21-32); CHLORIDE 101 MMOL/L (98-107); CREATININE SERUM 0.82 MG/DL (0.60-1.30); GFR ESTIMATED > 60; GLUCOSE 113 MG/DL (70-105); POTASSIUM 3.3 MMOL/L (3.6-5.0); SODIUM 139 MMOL/L (135-145); TOTAL PROTEIN 7.8 GM/DL (6.4-8.2)
[2019-07-19 10:13] LABS: CLARITY,URINE SLIGHTLY CLOUDY; COLOR,URINE YELLOW; GLUCOSE, URINE (UA) NEGATIVE (NEGATIVE); KETONES,URINE 2+ (NEGATIVE); LEUKOCYTE ESTERASE ,URINE 2+ (NEGATIVE); NITRITE,URINE NEGATIVE (NEGATIVE); PH,URINE 6 (5-9); PROTEIN,URINE 2+ (NEGATIVE); UROBILINOGEN,URINE 1 MG/DL (NORMAL)
[2019-07-19] MEDS: KCL 10 MEQ TAB (MICRO K) PO SCH ×4 (10:15→21:08)
[2019-07-19 10:17] LABS: BACTERIA,URINE MODERATE /HPF; BILIRUBIN,URINE 1+ (NEGATIVE); RBC,URINE RARE /HPF; SQUAMOUS EPITHELIAL CELL,UR 25-50 /HPF
--- NOTE | 2019-07-19 10:23 | NUR ---
Pastoral care visit.
--- NOTE | 2019-07-19 11:37 | Occupational Ther Daily Note ---
OT Current Status-Daily Note Subjective Pt agreeable to treatment this am. Reports 5/10 back pain which she reports is chronic Mental Status/Objective Therapy Code Descriptions/Definitions Functional [place] Measure: 0=Not Assessed/NA 4=Minimal Assistance 1=Total Assistance 5=Supervision or Setup 2=Maximal Assistance 6=Modified [place] 3=Moderate Assistance 7=Complete [place] ADL-Treatment Pt in restroom when therapist arrives. Pt able to stand from toilet, but requires min assist for clothing management. Pt ambulated to chair and took seated rest break before retrieving clothing with min assist. When ambulating to shower with FWW, pt required min assist for one LOB. Transfer to walk in shower with CGA for balance using grab bar for safety. Doff clothing with CGA for lower body. Seated bathing completed using hand held shower. Pt able to wash all areas , but requires CGA for balance during lower body bathing. Pt donned sports bra with min assist to pull down in back. Donned pullover shirt with SBA. Pt able to thread bilateral LE into pant legs, required min assist to pull pants up over left hip. Don bilateral socks with CGA for sitting balance. Pt stood at sink to comb hair and brush teeth with SBA. Therapy Code Descriptions/Definitions Functional [place] Measure: 0=Not Assessed/NA 4=Minimal Assistance 1=Total Assistance 5=Supervision or Setup 2=Maximal Assistance 6=Modified [place] 3=Moderate Assistance 7=Complete [place] Therapy Quality Codes: 6 Independent with activity with or without an assistive device 5 Patient requires set up or clean up by helper. Patient completes activity by themselves 4 Supervision or touching assist (CGA). [place] provide cues , steadying assist 3 The helper provides less than half the effort to complete the activity 2 The helper provides more than half the effort to complete the activity 1 Dependent. The helper does all the effort to complete an activity 7 Patient refused to complete or attempt activity 9 The patient did not perform the activity before the current illness or injury 88 Not attempted due to Medical conditions or safety concerns Grooming (FIM): 5 Oral Hygiene (QC): 4 Bathing (FIM): 4 Shower/Bathe Self (QC): 4 (CGA) Upper Body (FIM): 4 Upper Body Dressing (QC): 3 Lower Body Dressing (FIM): 4 Lower Body Dressing (QC): 3 Toileting (FIM): 4 Toilet/Commode Transfer (FIM): 4 Toilet Transfer (QC): 4 (CGA) Shower Transfer(FIM): 4 (CGA) Other Treatment Pt performed gait to therapy gym with FWW, cues for walker use and safety. Pt performed fine motor task with nuts and bolts using bilateral UE to increase fin e motor coordination/manipulation. Pt has decreased coordination with left hand, but is able to complete task without assist. Increased time to complete. Pt completed left UE AROM x10 reps at all joints. Hand textile machine mechanic exercises with moderate resistance therapy foam with left hand. Pt was also issued minimal resistance therapy putty to increase hand strength. Pt returned to room and toileted with min assist. Washed hands at sink with SBA. Pt sitting in chair with needs met after session. OT Short Term Goals Short Term Goals Transfers (B,C,W/C) (FIM): 5 1=Demonstrate adherence to instructed precautions during ADL tasks. 2=Patient will verbalize/demonstrate understanding of assistive devices/modifications for ADL. 3=Patient will improve strength/tolerance for activity to enable patient to perform ADL's. OT Wall Insulation Sprayer Goals Retirement Goals Time Frame: Aug 01, 2019 Eating (FIM): 6 Eating (QC): 6 Groomin Oral Hygiene (QC): 6 Bathing(FIM): 5 Shower/Bathe Self (QC): 4 Upper Body Dressing(FIM): 6 Upper Body Dressing (QC): 6 Lower Body Dressing(FIM): 6 Lower Body Dressing (QC): 6 On/Off Footwear (QC): 6 Toileting(FIM): 6 Toileting Hygiene (QC): 6 Transfers (B,C,W/C) (FIM): 6 Toilet/Commode Transfer(FIM): 6 Toilet/Commode Transfer (QC): 6 Shower Transfer(FIM): 5 Additional Goals: 1-Demonstrate ADL Tasks, 2-Verbalize Understanding, 3- ImproveStrength/Harsh 1=Demonstrate adherence to instructed precautions during ADL tasks. 2=Patient will verbalize/demonstrate understanding of assistive devices/modifications for ADL. 3=Patient will improve strength/tolerance for activity to enable patient to perform ADL's. OT Education/Plan Discharge Recommendations Plan/Recommendations: Continue POC Treatment Plan/Plan of Care Patient would benefit from OT for education, treatment and training to promote independence in ADL's, mobility, safety and/or upper extremity function for ADL's. Plan of Care: ADL Retraining, Functional Mobility, Group Exercise/Act as Ind, UE Funct Exercise/Act Treatment Duration: Aug 01, 2019 Frequency: At least 5 of 7 days/Wk (IRF) Estimated Hrs Per Day: 1.5 hours per day Agreement: Yes Rehab Potential: Good Time/GCodes Start Time: 08:00 Stop Time: 09:30 Total Time Billed (hr/min): 90 Billed Treatment Time 1 visit, ADLx3(50minutes), EXx2(40minutes) ITZ RAINES OT Jul 19, 2019 11:37
--- NOTE | 2019-07-19 12:00 | Physical Therapy Daily Note ---
PT Daily Note-Current Subjective Wants to be progressed to u pad bill, having trouble voiding well. Pain Location: No Pain Reported Mental Status Patient Orientation: Normal For Age Transfers Therapy Code Descriptions/Definitions Functional [place] Measure: 0=Not Assessed/NA 4=Minimal Assistance 1=Total Assistance 5=Supervision or Setup 2=Maximal Assistance 6=Modified [place] 3=Moderate Assistance 7=Complete [place] Therapy Quality Codes: 6 Independent with activity with or without an assistive device 5 Patient requires set up or clean up by helper. Patient completes activity by themselves 4 Supervision or touching assist (CGA). [place] provide cues , steadying assist 3 The helper provides less than half the effort to complete the activity 2 The helper provides more than half the effort to complete the activity 1 Dependent. The helper does all the effort to complete an activity 7 Patient refused to complete or attempt activity 9 The patient did not perform the activity before the current illness or injury 88 Not attempted due to Medical conditions or safety concerns Transfers (B, C, W/C) (FIM): 6 Scootin Rollin Supine to/from Sit: 6 Sit to/from Stand: 6 Bed to/from Chair: 6 quadruped, crawling, floor TRF all SBA to Mod I Gait Training Does the Patient Walk?: Yes Gait (FIM): 5 Distance (FIM): 3=150 ft (160x2) Gait Level of Assist: 5 Gait Persons Needed: 1 Gait Assistive Device: FWW no LOB but noted genurecurvatum left knee, toe in bilat Exercises Supine Ex: Bridging, Ankle pumps, Quad Set, Rolling, Glut sets, Heel Slides, Short Arc Quads, Scooting, Straight leg raise, Hip abd/add Supine Reps: 15 Treatments prone and siedlying exer as well as quadruped and tall on knees with balance challenge, floor TRF all SBA to Mod I, VYAS begun will finish PM Assessment Current Status: Good Progress gives full effort PT Short Term Goals Short Term Goals Time Frame: Jul 25, 2019 Transfers (B,C,W/C) (FIM): 5 Gait (FIM): 5 Gait Distance Comment: 200' Gait Level of Assist: 5 Gait Assistive Device: FWW PT Pharmacy Order Entry Technician Goals Pharmacy Order Entry Technician Goals PT Pharmacy Order Entry Technician Goals Time Frame: Aug 08, 2019 Transfers (B,C,W/C) (FIM): 6 Sit to Lying (QC): 6 Lying-Sitting on Side/Bed(QC): 6 Sit to Stand (QC): 6 Rollin Roll Left to Right (QC): 6 Chair/Nyl-lq-Huzii Xfer(QC): 6 Car Transfer (QC): 6 Gait (FIM): 6 Distance: 300' Walk 10 feet (QC): 6 Walk 10ft-Uneven Surface(QC): 6 Walk 50ft with 2 Turns (QC): 6 Walk 150 ft (QC): 6 Gait Level of Assist: 6 Gait Assistive Device: FWW Stairs (FIM): 2 # of Steps: 4 1 Step (curb) (QC): 4 4 Steps (QC): 4 Stairs Level Of Assist: 5 PT Plan Treatment/Plan Treatment Plan: Continue Plan of Care Treatment Plan: Bed Mobility, Education, Functional Activity Harsh, Functional Strength, Group Therapy, Gait, Safety, Therapeutic Exercise, Transfers Treatment Duration: Aug 08, 2019 Frequency: At least 5 of 7 days/Wk (IRF) Estimated Hrs Per Day: 1.5 hours per day Patient and/or Family Agrees t: Yes Safety Risks/Education Patient Education: Gait Training, Transfer Techniques, Correct Positioning, Disease Process, Safety Issues Teaching Recipient: Patient Teaching Methods: Demonstration, Discussion Response to Teaching: Verbalize Understanding, Return Demonstration, Reinforcement Needed Time/GCodes Time In: 1100 Time Out: 1200 Total Billed Treatment Time: 60 Total Billed Treatment 1,GT20m,NM15m,EX25m JUDI JESUS SIGNALS OFFICER Jul 19, 2019 12:00
--- NOTE | 2019-07-19 12:12 | Individualized Plan of Care ---
Individualized Plan of Care Rehab Nursing IPOC Order Admission Date Jul 18, 2019 at 11:04 Current Orders Orders Admission Arrival Bed Request (07/18/19 11:04) Admission Order(Inpt,Obs,Sdc) (07/18/19 11:38) Compliance Representative-Inpt Rehab Con (07/18/19 11:38) Rehab Nursing Orders-Ipoc (07/18/19 11:38) Physical Therapy Rehab Orders (07/18/19 11:38) Occupational Therapy Rehab Ord (07/18/19 11:38) Speech Therapy Rehab Orders (07/18/19 11:38) Precautions (Aru) (07/18/19 11:38) Weekly Weight WEEK (07/18/19 11:38) Rehab-Intensity Of Therapy (07/18/19 11:38) Cho 60g/M 3snack (16-2000 Kenny) (07/18/19 Dinner) Initiate Admission Nursing Pro .admission (07/18/19 11:38) Code/Resuscitation (07/18/19 11:38) Code/Resuscitation (07/18/19 11:42) 1/2 Ns Iv Solution (0.45% Sodium Chlorid (07/18/19 11:45) Acetaminophen Tablet/Caplet (Tylenol T (07/18/19 11:45) Aspirin Enteric Coated Tablet (Ecotrin T (07/19/19 09:00) Atorvastatin Tablet (Lipitor Tablet) (07/18/19 21:00) Folic Acid Tablet (Folic Acid Tablet) (07/19/19 09:00) Antacid Suspension (Mylanta Suspension (07/18/19 11:45) Magnesium Oxide Tablet (Mag Ox Tablet) (07/18/19 21:00) Therapeutic Multivitamin Tab (Vitamins, (07/19/19 07:00) Ns W/Kcl 20 Meq/L (Ns Iv W/Kcl 20 Meq/L) (07/18/19 11:45) Ondansetron Injection (Zofran Injectio (07/18/19 11:45) Ondansetron Oral Dissolve Tab (Zofran (07/18/19 11:45) Potassium Chloride (Tablet) (Klor Con Ta (07/18/19 13:00) Senna S Tablet (Senokot S Tablet) (07/18/19 11:45) Thiamine Tablet (Vitamin B-1 Tablet) (07/19/19 07:00) Amlodipine Tablet (Norvasc Tablet) (07/19/19 09:00) Clonidine Tablet (Catapres Tablet) (07/18/19 11:45) Fentanyl Injection (Sublimaze Injection (07/18/19 11:45) Metoprolol Succinate (Xl) Tab (Toprol Xl (07/19/19 09:00) Lorazepam Tablet (Ativan Tablet) (07/18/19 11:45) Atorvastatin Tablet (Lipitor Tablet) (07/18/19 21:00) Patient Visit (07/18/19 ) Pt Eval Moderate Complexity (07/18/19 ) Functional Activities, Ea 15 (07/18/19 ) Exercise Therap, Ea 15 Min (07/18/19 ) Patient Visit (07/18/19 ) Exercise Therap, Ea 15 Min (07/18/19 ) Gait Training, Ea 15 Min (07/18/19 ) Patient Visit (07/18/19 ) Speech Sound Lang Comp (07/18/19 ) Request Ot Evaluate & Treat (07/18/19 16:49) Edu Tobacco/Smoking Cessation .prn (07/18/19 16:49) Ambulate 08,12,20 (07/18/19 16:49) Sequential Compression Device Q4H (07/18/19 16:49) Dvt/Vte Risk - Notifiy Physici Q4H (07/18/19 16:49) Ibuprofen Tablet (Motrin Tablet) (07/18/19 23:30) Cbc No Diff (07/19/19 09:15) Comprehensive Metabolic Panel (07/19/19 09:15) Phenazopyridine Tablet (Pyridium Tablet) (07/19/19 13:00) Diclofenac 1% Gel (Voltaren 1% Gel) (07/19/19 09:30) Ua Culture If Indicated (07/19/19 10:00) Urine Culture (07/19/19 10:00) Patient Visit (07/19/19 ) Gait Training, Ea 15 Min (07/19/19 ) Exercise Therap, Ea 15 Min (07/19/19 ) Ex Neuromuscular, Ea 15 Min (07/19/19 ) Enoxaparin Injection (Lovenox Injection) (07/19/19 18:00) Patient Visit (07/20/19 ) Gait Training, Ea 15 Min (07/20/19 ) Exercise Therap, Ea 15 Min (07/20/19 ) Rehab Nursing Orders: Ongoing Assess. of Cognitive Status, Ongoing Assess. of Function Status, Bladder Scan, Bowel Management, Disease Management & Educaiton, DVT Prophylaxis, Fluid/Electrolyte/Nutrition Mgmt, Infection Prevention, Management of Risks & Complications, Nutrition Management, Pain Management, Patient/Family Support Intensity of Therapy to be met Patient to be seen: Min.3h per day/5 of 7d PT IPOC Problem List: Activity Tolerance, Functional Strength, Safety, Balance, Gait, Transfer, Bed Mobility Treatment Plan: Continue Plan of Care Bed Mobility, Education, Functional Activity Harsh, Functional Strength, Group Therapy, Gait, Safety, Therapeutic Exercise, Transfers Treatment Duration: Aug 08, 2019 Frequency: At least 5 of 7 days/Wk (IRF) Estimated Hrs Per Day: 1.5 hours per day OT IPOC Problems: Decreased Activ Tolerance, Decreased UE Strength, Dependent Transfers, Impaired Bed Mobility, Impaired Coordination, Impaired Funct Balance, Impaired I ADL's, Impaired Self-Care Skills, Restricted Funct UE ROM OT Treatment, Training and Edu: Yes Plan of Care: ADL Retraining, Functional Mobility, Group Exercise/Act as Ind, UE Funct Exercise/Act Treatment Duration: Aug 01, 2019 Frequency: At least 5 of 7 days/Wk (IRF) Estimated Hrs Per Day: 1.[address] IPOC Speech Therapy Treatment Plan: Discontinue ST Treatment Duration: Jul 18, 2019 Frequency: 1 time per week Estimated Hrs Per Day: .25 hour per day Compliance Representative/Case Mgmt Compliance Representative/Case Managemen: Discharge Planning Dietitian/Machine Tender Dietitian/Machine Tender to monitor nutritional status and make changes and/or recommendations as needed and work with speech pathology on dietary upgrades as the occur. Physician IPOC Medical Issues being managed closely and that require the 24 hour availability of a physician: New stroke with left-sided weakness and malignant hypertension requiring close monitoring along with electrolyte replacement Medical Issues: Bowel/Bladder Function, DVT Prophylaxis, Falls Precautions, Fluid/Electrolyte/Nutrition Balance, Pain Management, Weight Bearing Precautions Brief Synthesis of Preadmission Screen, Post-Admission Evaluation, and Therapy Evaluations: Physical therapy will focus on ambulation with an assistive device of a walker to improve ambulation Occupational therapy will help regain function of the left arm to perform independent ADLs Medical Prognosis: Good Anticipated Length of Stay: 7 days HERMINIA WILBURN DO Jul 19, 2019 12:12
--- NOTE | 2019-07-19 12:12 | PM&R Progress Note ---
Subjective HPI/CC On Admission Date Seen by Provider: Jul 19, 2019 Time Seen by Provider: 09:00 CC: CVA w/left sided weakness HPI: (Med-surg Hospital course: Pt [facility] after she was found to have a sub-acute stroke confirmed on MRI with left sided weakness. Cardiology was consulted, Echocardiogram, Carotid ultrasound and labs obtained. Pt was placed on statin therapy, Aspirin therapy, and was deemed stable for DC in inpatient rehab to work on strengthening of the left side). Patient is currently ready for rehab and will maintain on statin treatment and ASA and complete CVA w/u while admitted to IRF. Subjective/Events-last exam Patient seems to be doing well today Fever was noted of 102 last night In and out catheter UA was ordered and it did not appear to be infected Back pain is periodic Check labs Pyridium will be given with meals to minimize the bladder spasms and frequency in the meantime Conferred with tobacco wetter therapy notes Checked meds and labs Review of Systems General: Fatigue Genitourinary: Frequency Neurological: Weakness, Numbness, Incoordination Objective Exam Vital Signs Vital Signs Date Time Temp Pulse Resp B/P (MAP) Pulse Ox O2 Delivery O2 Flow Rate FiO2 07/20/19 06:00 36.1 88 18 122/70 (87) 96 Room Air 07/18/19 20:55 0.00 Capillary Refill : General Appearance: No Apparent Distress, WD/WN, Chronically ill HEENT: PERRL/EOMI, Normal ENT Inspection, Pharynx Normal, Moist Mucous Membranes Neck: Full Range of Motion, Normal Inspection, Non Tender, Supple Respiratory: Chest Non Tender, Lungs Clear, Normal Breath Sounds, No Accessory Muscle Use, No Respiratory Distress Cardiovascular: Regular Rate, Rhythm, No Edema, No Gallop, No JVD, No Murmur Gastrointestinal: Normal Bowel Sounds, No Organomegaly, No Pulsatile Mass, Non Tender, Soft Back: Normal Inspection, No CVA Tenderness, No Vertebral Tenderness Extremity: Normal Capillary Refill, Normal Inspection, Normal Range of Motion, Non Tender, No Calf Tenderness, No Pedal Edema Neurologic/Psychiatric: Alert, Oriented x3, Normal Mood/Affect, 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 FIM Transfers Therapy Code Descriptions/Definitions Functional [place] Measure: 0=Not Assessed/NA 4=Minimal Assistance 1=Total Assistance 5=Supervision or Setup 2=Maximal Assistance 6=Modified [place] 3=Moderate Assistance 7=Complete [place] Therapy Quality Codes: 6 Independent with activity with or without an assistive device 5 Patient requires set up or clean up by helper. Patient completes activity by themselves 4 Supervision or touching assist (CGA). [place] provide cues , steadying assist 3 The helper provides less than half the effort to complete the activity 2 The helper provides more than half the effort to complete the activity 1 Dependent. The helper does all the effort to complete an activity 7 Patient refused to complete or attempt activity 9 The patient did not perform the activity before the current illness or injury 88 Not attempted due to Medical conditions or safety concerns Transfers (B, C, W/C) (FIM): 6 Scootin Rollin Roll Left to Right (QC): 4 Supine to/from Sit: 6 Sit to/from Stand: 6 Sit to Lying (QC): 4 Sit to Stand (QC): 4 Chair/Sgy-dz-[place] Xfer(QC): 4 Bed to/from Chair: 6 Car Transfer (QC): 5 Gait Training Does the Patient Walk?: Yes Gait (FIM): 5 Distance (FIM): 3=150 ft (160x2) Distance: 150' x 3 Walk 10 feet (QC): 4 Walk 50 ft with 2 Turns(QC): 4 Walk 150 ft (QC): 4 Walking 10ft/uneven surface-QC: 4 Gait Level of Assist: 5 Gait Persons Needed: 1 Gait Assistive Device: FWW Wheelchair Training Does the Pt Use a Wheelchair?: No Stair Training Stairs (FIM): 1 #of Steps: 1 1 Step (curb) (QC): 3 Level of Assist: 4 Mental Status/Objective Comprehension: 7 Expression: 7 Social Interaction: 7 Problem Solvin Memory: 7 ADL-Treatment Feedin (Set up to eat lunch) Eating (QC): 5 Groomin Oral Hygiene (QC): 4 Bathin Shower/Bathe Self (QC): 4 (CGA) Upper Extremity Dressin Upper Body Dressing (QC): 3 Lower Extremity Dressin Lower Body Dressing (QC): 3 On/Off Footwear (QC): 3 Toiletin Toileting Hygiene (QC): 4 Toilet/Commode Transfer: 4 Toilet Transfer (QC): 4 (CGA) Shower: 4 (CGA) Assessment/Plan Assessment and Plan Assess & Plan/Chief Complaint Assessment: CVA w/left sided weakness Smoker Urinary frequency Isolated fever Plan: Monitor sugar Pyridium Monitor fever Monitor labs Monitor blood pressure (1) CVA (cerebral vascular accident) Status: Acute Qualifiers: CVA mechanism: unspecified Qualified Codes: I63.9 - Cerebral infarction, unspecified (2) Diabetes Status: Chronic Qualifiers: Diabetes mellitus type: type 2 Diabetes mellitus intermodal dispatcher insulin use: with intermodal dispatcher use Diabetes mellitus complication status: with circulatory complication Diabetes mellitus complication detail: with other circulatory complications Qualified Codes: E11.59 - Type 2 diabetes mellitus with other circulatory complications; Z79.4 - emt intermediate (current) use of insulin (3) Hyperlipemia Status: Chronic Qualifiers: Hyperlipidemia type: mixed hyperlipidemia Qualified Codes: E78.2 - Mixed hyperlipidemia (4) Left-sided weakness Status: Acute (5) Hypokalemia Status: Acute HERMINIA WILBURN DO Jul 19, 2019 12:11
[2019-07-19] MEDS: PHENAZOPYRIDINE 100 MG (PYRIDIUM) TABLET PO SCH ×2 (12:54→17:34)
--- NOTE | 2019-07-19 14:42 | Physical Therapy Daily Note ---
PT Daily Note-Current Subjective Agrees to Rx. Anxious to be up ad bill Pain Location: No Pain Reported Mental Status Patient Orientation: Normal For Age Transfers Therapy Code Descriptions/Definitions Functional [place] Measure: 0=Not Assessed/NA 4=Minimal Assistance 1=Total Assistance 5=Supervision or Setup 2=Maximal Assistance 6=Modified [place] 3=Moderate Assistance 7=Complete [place] Therapy Quality Codes: 6 Independent with activity with or without an assistive device 5 Patient requires set up or clean up by helper. Patient completes activity by themselves 4 Supervision or touching assist (CGA). [place] provide cues , steadying assist 3 The helper provides less than half the effort to complete the activity 2 The helper provides more than half the effort to complete the activity 1 Dependent. The helper does all the effort to complete an activity 7 Patient refused to complete or attempt activity 9 The patient did not perform the activity before the current illness or in jury 88 Not attempted due to Medical conditions or safety concerns all TRFs Mod I to SBA Gait Training Gait Assistive Device: FWW 150x2, SBA, instruction in position in FWW and step length Exercises NuStep Minutes: 8 NuStep Workload: 5 Neuromuscular completed VYAS at 51/56 , see hard chart. Treatments toileted x 2 SBA Assessment Current Status: Good Progress PT Short Term Goals Short Term Goals Time Frame: Jul 25, 2019 Transfers (B,C,W/C) (FIM): 5 Gait (FIM): 5 Gait Distance Comment: 200' Gait Level of Assist: 5 Gait Assistive Device: FWW PT Mold Closer Helper Goals Fci Goals PT Fci Goals Time Frame: Aug 08, 2019 Transfers (B,C,W/C) (FIM): 6 Sit to Lying (QC): 6 Lying-Sitting on Side/Bed(QC): 6 Sit to Stand (QC): 6 Rollin Roll Left to Right (QC): 6 Chair/Ddv-ii-[place] Xfer(QC): 6 Car Transfer (QC): 6 Gait (FIM): 6 Distance: 300' Walk 10 feet (QC): 6 Walk 10ft-Uneven Surface(QC): 6 Walk 50ft with 2 Turns (QC): 6 Walk 150 ft (QC): 6 Gait Level of Assist: 6 Gait Assistive Device: FWW Stairs (FIM): 2 # of Steps: 4 1 Step (curb) (QC): 4 4 Steps (QC): 4 Stairs Level Of Assist: 5 PT Plan Treatment/Plan Treatment Plan: Continue Plan of Care Treatment Plan: Bed Mobility, Education, Functional Activity Harsh, Functional Strength, Group Therapy, Gait, Safety, Therapeutic Exercise, Transfers Treatment Duration: Aug 08, 2019 Frequency: At least 5 of 7 days/Wk (IRF) Estimated Hrs Per Day: 1.5 hours per day Patient and/or Family Agrees t: Yes Safety Risks/Education Patient Education: Gait Training, Transfer Techniques, Correct Positioning, Disease Process, Safety Issues Teaching Recipient: Patient Teaching Methods: Demonstration, Discussion Response to Teaching: Verbalize Understanding, Return Demonstration, Reinforcement Needed Time/GCodes Time In: 1442 Time Out: 1412 Total Billed Treatment Time: 30 Total Billed Treatment 1,NM30m JUDI JESUS MAPPER Jul 19, 2019 14:42
--- NOTE | 2019-07-19 15:46 | NUR ---
Initial assessment Met with patient to complete initial assessment. Patient admitted to ARU on 07/18/19 from [facility] medical unit with diagnosis of CVA with left sided weakness. Prior to hospitalization the patient was living at home with her significant other. She was independent with functional mobility and ADLs prior to this admission. She was not using any adaptive equipment/devices; however, states she may have an old walker at home. Patient reports her spouse is looking for the walker. Patient identifies Shine Green as her primary contact. He can be reached at . Patient identifies Betty Giron as her PCP out of the [facility] in [place], [place]. Patient identifies [facility] in [place], [place] as her preferred pharmacy. Patient confirms that she currently is self pay status. The purpose of the weekly team conference was discussed and patient verbalized understanding.
--- NOTE | 2019-07-19 17:00 | NUR ---
HAS BEEN VOIDING IN SMALL AMOUNTS. BLADDER SCAN DONE AFTER VOIDING 50 CC AND ONLY 5 CC ON SCANNER. SPECIMEN HAT IN TOILET TO OBTAIN ACCURATE OUTPUTS. LIKES KPAD TO BACK. AFEBRILE TODAY.
[2019-07-19 17:03] VITALS: BP 133/92
[2019-07-19] MEDS: ENOXAPARIN 40 MG/0.4 ML (LOVENOX) SYR SC SCH (18:41)
[2019-07-19 21:07] VITALS: BP 140/82
[2019-07-20 06:00] VITALS: BP 122/70
[2019-07-20] MEDS: THIAMINE 100 MG (VITAMIN B-1) TAB PO SCH (06:01)
[2019-07-20] MEDS: MULTIVIT W/MINERALS TAB (THERAGRAN M) PO SCH (06:01)
[2019-07-20] MEDS: KCL 10 MEQ TAB (MICRO K) PO SCH ×4 (08:58→20:09)
[2019-07-20] MEDS: ASPIRIN E.C. 81 MG (ECOTRIN) TAB PO SCH (08:58)
[2019-07-20] MEDS: MAGNESIUM OXIDE (MAG-OX)400 MG TAB PO SCH ×2 (08:58→20:09)
[2019-07-20] MEDS: PHENAZOPYRIDINE 100 MG (PYRIDIUM) TABLET PO SCH ×3 (08:59→17:22)
[2019-07-20] MEDS: FOLIC ACID 1 MG TAB PO SCH (08:59)
--- NOTE | 2019-07-20 09:07 | PM&R Progress Note ---
Subjective HPI/CC On Admission Date Seen by Provider: Jul 20, 2019 Time Seen by Provider: 09:15 CC: CVA w/left sided weakness HPI: (Med-surg Hospital course: Pt [facility] after she was found to have a sub-acute stroke confirmed on MRI with left sided weakness. Cardiology was consulted, Echocardiogram, Carotid ultrasound and labs obtained. Pt was placed on statin therapy, Aspirin therapy, and was deemed stable for DC in inpatient rehab to work on strengthening of the left side). Patient is currently ready for rehab and will maintain on statin treatment and ASA and complete CVA w/u while admitted to IRF. Subjective/Events-last exam No more fever noted Pyridium really helping the urinary frequency Blood sugars noted Blood pressure noted Checked meds and labs Walking is improved Having a bowel movement regularly Smoking cessation discussed Conferred with photograph retoucher therapy notes Checked meds and labs Review of Systems General: Fatigue Genitourinary: Frequency Neurological: Weakness, Numbness, Incoordination Objective Exam Vital Signs Vital Signs Date Time Temp Pulse Resp B/P (MAP) Pulse Ox O2 Delivery O2 Flow Rate FiO2 07/20/19 06:00 36.1 88 18 122/70 (87) 96 Room Air 07/18/19 20:55 0.00 Capillary Refill : General Appearance: No Apparent Distress, WD/WN, Chronically ill HEENT: PERRL/EOMI, Normal ENT Inspection, Pharynx Normal, Moist Mucous Membranes Neck: Full Range of Motion, Normal Inspection, Non Tender, Supple Respiratory: Chest Non Tender, Lungs Clear, Normal Breath Sounds, No Accessory Muscle Use, No Respiratory Distress Cardiovascular: Regular Rate, Rhythm, No Edema, No Gallop, No JVD, No Murmur Gastrointestinal: Normal Bowel Sounds, No Organomegaly, No Pulsatile Mass, Non Tender, Soft Back: Normal Inspection, No CVA Tenderness, No Vertebral Tenderness Extremity: Normal Capillary Refill, Normal Inspection, Normal Range of Motion, Non Tender, No Calf Tenderness, No Pedal Edema Neurologic/Psychiatric: Alert, Oriented x3, Normal Mood/Affect, nursery 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 FIM Transfers Therapy Code Descriptions/Definitions Functional [place] Measure: 0=Not Assessed/NA 4=Minimal Assistance 1=Total Assistance 5=Supervision or Setup 2=Maximal Assistance 6=Modified [place] 3=Moderate Assistance 7=Complete [place] Therapy Quality Codes: 6 Independent with activity with or without an assistive device 5 Patient requires set up or clean up by helper. Patient completes activity by themselves 4 Supervision or touching assist (CGA). [place] provide cues , steadying assist 3 The helper provides less than half the effort to complete the activity 2 The helper provides more than half the effort to complete the activity 1 Dependent. The helper does all the effort to complete an activity 7 Patient refused to complete or attempt activity 9 The patient did not perform the activity before the current illness or injury 88 Not attempted due to Medical conditions or safety concerns Transfers (B, C, W/C) (FIM): 6 Scootin Rollin Roll Left to Right (QC): 4 Supine to/from Sit: 6 Sit to/from Stand: 6 Sit to Lying (QC): 4 Sit to Stand (QC): 4 Chair/Wxx-hr-Xowho Xfer(QC): 4 Bed to/from Chair: 6 Car Transfer (QC): 5 Gait Training Does the Patient Walk?: Yes Gait (FIM): 5 Distance (FIM): 3=150 ft (160x2) Distance: 150' x 3 Walk 10 feet (QC): 4 Walk 50 ft with 2 Turns(QC): 4 Walk 150 ft (QC): 4 Walking 10ft/uneven surface-QC: 4 Gait Level of Assist: 5 Gait Persons Needed: 1 Gait Assistive Device: FWW Wheelchair Training Does the Pt Use a Wheelchair?: No Stair Training Stairs (FIM): 1 #of Steps: 1 1 Step (curb) (QC): 3 Level of Assist: 4 Mental Status/Objective Comprehension: 7 Expression: 7 Social Interaction: 7 Problem Solvin Memory: 7 ADL-Treatment Feedin (Set up to eat lunch) Eating (QC): 5 Groomin Oral Hygiene (QC): 4 Bathin Shower/Bathe Self (QC): 4 (CGA) Upper Extremity Dressin Upper Body Dressing (QC): 3 Lower Extremity Dressin Lower Body Dressing (QC): 3 On/Off Footwear (QC): 3 Toiletin Toileting Hygiene (QC): 4 Toilet/Commode Transfer: 4 Toilet Transfer (QC): 4 (CGA) Shower: 4 (CGA) Assessment/Plan Assessment and Plan Assess & Plan/Chief Complaint Assessment: CVA with left-sided weakness Urinary frequency Isolated fever Hypertension malignant type Diabetes mellitus new onset Smoker Plan: Urinary frequency treatment Monitor fever Monitor blood pressure Monitor blood sugar Inpatient rehabilitation protocol with therapies (1) CVA (cerebral vascular accident) Status: Acute Qualifiers: CVA mechanism: unspecified Qualified Codes: I63.9 - Cerebral infarction, unspecified (2) Diabetes Status: Chronic Qualifiers: Diabetes mellitus type: type 2 Diabetes mellitus halfway insulin use: with halfway use Diabetes mellitus complication status: with circulatory complication Diabetes mellitus complication detail: with other circulatory complications Qualified Codes: E11.59 - Type 2 diabetes mellitus with other circulatory complications; Z79.4 - shelter (current) use of insulin (3) Hyperlipemia Status: Chronic Qualifiers: Hyperlipidemia type: mixed hyperlipidemia Qualified Codes: E78.2 - Mixed hyperlipidemia (4) Left-sided weakness Status: Acute (5) Hypokalemia Status: Acute (6) Hypertension Status: Chronic Qualifiers: Hypertension type: essential hypertension Qualified Codes: I10 - Essential (primary) hypertension HERMINIA WILBURN DO Jul 20, 2019 09:07
[2019-07-20 09:28] VITALS: BP 134/82
[2019-07-20] MEDS: amLODIPine 5 MG (NORVASC) TAB PO SCH (09:31)
--- NOTE | 2019-07-20 12:28 | Physical Therapy Daily Note ---
PT Daily Note-Current Subjective Pt agreeable to PT session, states she is very motivated to get better as quick as she can and get back home. Pt states she was having trouble with balance a long time before this recent hospitalization. States her R foot/toes are numb, but has better control of her L hand and leg now, although still difficult Pain Numeric Pain Scale: 7 Location: Left Location Body Site: Hip Comment: pt denies need for pain med Appearance Pt up in chair with family member present upon arrival. Pt requesting and assisted to bathroom during session. At end of session, pt sitting up in recliner with call light, phone, bedside table within reach Mental Status Patient Orientation: Person, Place, Time, Eyes Open, Situation Transfers Therapy Code Descriptions/Definitions Functional [place] Measure: 0=Not Assessed/NA 4=Minimal Assistance 1=Total Assistance 5=Supervision or Setup 2=Maximal Assistance 6=Modified [place] 3=Moderate Assistance 7=Complete [place] Therapy Quality Codes: 6 Independent with activity with or without an assistive device 5 Patient requires set up or clean up by helper. Patient completes activity by themselves 4 Supervision or touching assist (CGA). [place] provide cues , steadying assist 3 The helper provides less than half the effort to complete the activity 2 The helper provides more than half the effort to complete the activity 1 Dependent. The helper does all the effort to complete an activity 7 Patient refused to complete or attempt activity 9 The patient did not perform the activity before the current illness or injury 88 Not attempted due to Medical conditions or safety concerns Transfers (B, C, W/C) (FIM): 4 Sit to/from Stand: 4 (CGA provided for safety, Pt able to follow skilled verb inst for hand placement and safety) Gait Training Does the Patient Walk?: Yes Gait (FIM): 4 Distance (FIM): 3=150 ft Distance: 200, 150 Gait Level of Assist: 4 (CGA to SBA provided for safety, able to follow skilled verb inst for safety, distance from walker, gait quality and posture) Gait Assistive Device: FWW slight fwd flexed posturing leaning on FWW, able to correct this and posture with skilled verb inst Exercises Standing: Heel/toe raises, 3 way Ex=Flex, Abd, Ext (lunges), Marching, Mini squats, Unilateral stance (30 sec each LE) Standing Reps: 10 (in // bars but attempting not to use UE's for support) Assessment Current Status: Good Progress PT Short Term Goals Short Term Goals Time Frame: Jul 25, 2019 Transfers (B,C,W/C) (FIM): 5 Gait (FIM): 5 Gait Distance Comment: 200' Gait Level of Assist: 5 Gait Assistive Device: FWW PT Linux Unix System Administrator Goals Linux Unix System Administrator Goals PT Fdc Goals Time Frame: Aug 08, 2019 Transfers (B,C,W/C) (FIM): 6 Sit to Lying (QC): 6 Lying-Sitting on Side/Bed(QC): 6 Sit to Stand (QC): 6 Rollin Roll Left to Right (QC): 6 Chair/Hak-ig-Qfbgt Xfer(QC): 6 Car Transfer (QC): 6 Gait (FIM): 6 Distance: 300' Walk 10 feet (QC): 6 Walk 10ft-Uneven Surface(QC): 6 Walk 50ft with 2 Turns (QC): 6 Walk 150 ft (QC): 6 Gait Level of Assist: 6 Gait Assistive Device: FWW Stairs (FIM): 2 # of Steps: 4 1 Step (curb) (QC): 4 4 Steps (QC): 4 Stairs Level Of Assist: 5 PT Plan Treatment/Plan Treatment Plan: Continue Plan of Care Treatment Plan: Bed Mobility, Education, Functional Activity Harsh, Functional Strength, Group Therapy, Gait, Safety, Therapeutic Exercise, Transfers Treatment Duration: Aug 08, 2019 Frequency: At least 5 of 7 days/Wk (IRF) Estimated Hrs Per Day: 1.5 hours per day Patient and/or Family Agrees t: Yes Safety Risks/Education Patient Education: Gait Training, Transfer Techniques, Disease Process, Safety Issues Teaching Recipient: Patient Teaching Methods: Demonstration, Discussion Response to Teaching: Verbalize Understanding, Return Demonstration Time/GCodes Time In: 925 Time Out: 957 Total Billed Treatment Time: 32 Total Billed Treatment 1 visit, GT x15 min, EX x17 min RENE HARRISON PTA Jul 20, 2019 12:28
[2019-07-20] MEDS: ENOXAPARIN 40 MG/0.4 ML (LOVENOX) SYR SC SCH (17:23)
[2019-07-20 18:39] VITALS: BP 142/72
[2019-07-20] MEDS: IBUPROFEN TABLET 200 MG TAB PO PRN (20:09)
--- NOTE | 2019-07-20 22:00 | NUR ---
Pt wishes not to wear SCD's tonight, states "I'm getting the shots for blood clots, so I would like not to wear them tonight". Pt educated about the risk for developing DVTs, verbalizes understanding.
[2019-07-20] MEDS: LOPERAMIDE 2 MG (IMODIUM) TABLET PO PRN (23:50)
[2019-07-21 06:00] VITALS: BP 142/88
[2019-07-21] MEDS: MULTIVIT W/MINERALS TAB (THERAGRAN M) PO SCH (07:19)
[2019-07-21] MEDS: THIAMINE 100 MG (VITAMIN B-1) TAB PO SCH (07:19)
[2019-07-21] MEDS: MAGNESIUM OXIDE (MAG-OX)400 MG TAB PO SCH ×2 (09:14→20:02)
[2019-07-21] MEDS: ASPIRIN E.C. 81 MG (ECOTRIN) TAB PO SCH (09:14)
[2019-07-21] MEDS: FOLIC ACID 1 MG TAB PO SCH (09:14)
[2019-07-21] MEDS: amLODIPine 5 MG (NORVASC) TAB PO SCH (09:14)
[2019-07-21] MEDS: PHENAZOPYRIDINE 100 MG (PYRIDIUM) TABLET PO SCH ×3 (09:14→17:39)
[2019-07-21] MEDS: KCL 10 MEQ TAB (MICRO K) PO SCH ×4 (09:14→20:02)
--- NOTE | 2019-07-21 11:40 | PM&R Progress Note ---
Subjective HPI/CC On Admission Date Seen by Provider: Jul 21, 2019 Time Seen by Provider: 09:30 CC: CVA w/left sided weakness HPI: (Med-surg Hospital course: Pt [facility] after she was found to have a sub-acute stroke confirmed on MRI with left sided weakness. Cardiology was consulted, Echocardiogram, Carotid ultrasound and labs obtained. Pt was placed on statin therapy, Aspirin therapy, and was deemed stable for DC in inpatient rehab to work on strengthening of the left side). Patient is currently ready for rehab and will maintain on statin treatment and ASA and complete CVA w/u while admitted to IRF. Subjective/Events-last exam No more fever noted Diarrhea resolved with Imodium stayed the night last night Overall walking very well Progressing very well Conferred with brazer crawler torch therapy notes Checked meds and labs Review of Systems General: Fatigue Neurological: Weakness, Numbness, Incoordination Objective Exam Vital Signs Vital Signs Date Time Temp Pulse Resp B/P (MAP) Pulse Ox O2 Delivery O2 Flow Rate FiO2 07/21/19 17:42 37.0 86 18 136/92 (107) 94 Room Air 07/18/19 20:55 0.00 Capillary Refill : General Appearance: No Apparent Distress, WD/WN, Chronically ill HEENT: PERRL/EOMI, Normal ENT Inspection, Pharynx Normal, Moist Mucous Membranes Neck: Full Range of Motion, Normal Inspection, Non Tender, Supple Respiratory: Chest Non Tender, Lungs Clear, Normal Breath Sounds, No Accessory Muscle Use, No Respiratory Distress Cardiovascular: Regular Rate, Rhythm, No Edema, No Gallop, No JVD, No Murmur Gastrointestinal: Normal Bowel Sounds, No Organomegaly, No Pulsatile Mass, Non Tender, Soft Back: Normal Inspection, No CVA Tenderness, No Vertebral Tenderness Extremity: Normal Capillary Refill, Normal Inspection, Normal Range of Motion, Non Tender, No Calf Tenderness, No Pedal Edema Neurologic/Psychiatric: Alert, Oriented x3, Normal Mood/Affect, grinder needle tip II-XII Norm as Tested, Motor Weakness (left upper and lower extremity 1-2/5) Skin: Normal Color, Warm/Dry Lymphatic: No Adenopathy Results/Procedures Lab Patient resulted labs reviewed. FIM Transfers Therapy Code Descriptions/Definitions Functional [place] Measure: 0=Not Assessed/NA 4=Minimal Assistance 1=Total Assistance 5=Supervision or Setup 2=Maximal Assistance 6=Modified [place] 3=Moderate Assistance 7=Complete [place] Therapy Quality Codes: 6 Independent with activity with or without an assistive device 5 Patient requires set up or clean up by helper. Patient completes activity by themselves 4 Supervision or touching assist (CGA). [place] provide cues , steadying assist 3 The helper provides less than half the effort to complete the activity 2 The helper provides more than half the effort to complete the activity 1 Dependent. The helper does all the effort to complete an activity 7 Patient refused to complete or attempt activity 9 The patient did not perform the activity before the current illness or injury 88 Not attempted due to Medical conditions or safety concerns Transfers (B, C, W/C) (FIM): 4 Scootin Rollin Roll Left to Right (QC): 4 Supine to/from Sit: 6 Sit to/from Stand: 4 (CGA provided for safety, Pt able to follow skilled verb inst for hand placement and safety) Sit to Lying (QC): 4 Sit to Stand (QC): 4 Chair/Dvb-ax-Xmkkg Xfer(QC): 4 Bed to/from Chair: 6 Car Transfer (QC): 5 Gait Training Does the Patient Walk?: Yes Gait (FIM): 4 Distance (FIM): 3=150 ft Distance: 200, 150 Walk 10 feet (QC): 4 Walk 50 ft with 2 Turns(QC): 4 Walk 150 ft (QC): 4 Walking 10ft/uneven surface-QC: 4 Gait Level of Assist: 4 (CGA to SBA provided for safety, able to follow skilled verb inst for safety, distance from walker, gait quality and posture) Gait Persons Needed: 1 Gait Assistive Device: FWW Wheelchair Training Does the Pt Use a Wheelchair?: No Stair Training Stairs (FIM): 1 #of Steps: 1 1 Step (curb) (QC): 3 Level of Assist: 4 Mental Status/Objective Comprehension: 7 Expression: 7 Social Interaction: 7 Problem Solvin Memory: 7 ADL-Treatment Feedin (Set up to eat lunch) Eating (QC): 5 Groomin Oral Hygiene (QC): 4 Bathin Shower/Bathe Self (QC): 4 (CGA) Upper Extremity Dressin Upper Body Dressing (QC): 3 Lower Extremity Dressin Lower Body Dressing (QC): 3 On/Off Footwear (QC): 3 Toiletin Toileting Hygiene (QC): 4 Toilet/Commode Transfer: 4 Toilet Transfer (QC): 4 (CGA) Shower: 4 (CGA) Assessment/Plan Assessment and Plan Assess & Plan/Chief Complaint Assessment: CVA with left-sided weakness Urinary frequency Isolated fever Hypertension malignant type Diabetes mellitus new onset Smoker Loose stools Plan: Urinary frequency treatment Monitor fever Monitor blood pressure Monitor blood sugar Inpatient rehabilitation protocol with therapies Imodium (1) CVA (cerebral vascular accident) Status: Acute Qualifiers: CVA mechanism: unspecified Qualified Codes: I63.9 - Cerebral infarction, unspecified (2) Diabetes Status: Chronic Qualifiers: Diabetes mellitus type: type 2 Diabetes mellitus lobsterman insulin use: with custodial use Diabetes mellitus complication status: with circulatory complication Diabetes mellitus complication detail: with other circulatory complications Qualified Codes: E11.59 - Type 2 diabetes mellitus with other circulatory complications; Z79.4 - medical terminologist (current) use of insulin (3) Hyperlipemia Status: Chronic Qualifiers: Hyperlipidemia type: mixed hyperlipidemia Qualified Codes: E78.2 - Mixed hyperlipidemia (4) Left-sided weakness Status: Acute (5) Hypokalemia Status: Acute (6) Hypertension Status: Chronic Qualifiers: Hypertension type: essential hypertension Qualified Codes: I10 - Essential (primary) hypertension HERMINIA WILBURN DO Jul 21, 2019 11:39
[2019-07-21] MEDS: ENOXAPARIN 40 MG/0.4 ML (LOVENOX) SYR SC SCH (17:40)
[2019-07-21 17:42] VITALS: BP 136/92
[2019-07-21] MEDS: LOPERAMIDE 2 MG (IMODIUM) TABLET PO PRN (20:03)
[2019-07-21] MEDS: IBUPROFEN TABLET 200 MG TAB PO PRN (20:03)
[2019-07-22] MEDS: MULTIVIT W/MINERALS TAB (THERAGRAN M) PO SCH (05:14)
[2019-07-22] MEDS: THIAMINE 100 MG (VITAMIN B-1) TAB PO SCH (05:14)
[2019-07-22 05:19] LABS: BASOPHILS % (AUTO) 0 % (0-10); EOSINOPHILS # (AUTO) 0.2 10^3/uL (0.0-0.3); EOSINOPHILS % (AUTO) 2 % (0-10); HEMATOCRIT 38 % (35-52); HEMOGLOBIN 12.7 G/DL (11.5-16.0); LYMPHOCYTES # (AUTO) 1.8 X 10^3 (1.0-4.0); LYMPHOCYTES % (AUTO) 24 % (12-44); MEAN CORPUSCULAR HEMOGLOBIN 33 PG (25-34); MEAN CORPUSCULAR HGB CONC 33 G/DL (32-36); MEAN CORPUSCULAR VOLUME 100 FL (80-99); MEAN PLATELET VOLUME 10.8 FL (7.4-10.4); MONOCYTES # (AUTO) 0.9 X 10^3 (0.0-1.0); MONOCYTES % (AUTO) 12 % (0-12); NEUTROPHILS # (AUTO) 4.7 X 10^3 (1.8-7.8); NEUTROPHILS % (AUTO) 61 % (42-75); PLATELET COUNT 278 10^3/uL (130-400); RED CELL DISTRIBUTION WIDTH 12.6 % (10.0-14.5); WHITE BLOOD COUNT 7.6 10^3/uL (4.3-11.0)
[2019-07-22 05:26] VITALS: BP 144/91
[2019-07-22 05:49] LABS: ALANINE AMINOTRANSFERASE 22 U/L (0-55); ALBUMIN 3.6 GM/DL (3.2-4.5); ALKALINE PHOSPHATASE 80 U/L (40-136); BILIRUBIN,TOTAL 0.4 MG/DL (0.1-1.0); BUN/CREATININE RATIO 19; CALCIUM 9.2 MG/DL (8.5-10.1); CARBON DIOXIDE 23 MMOL/L (21-32); CHLORIDE 107 MMOL/L (98-107); CREATININE SERUM 0.72 MG/DL (0.60-1.30); GFR ESTIMATED > 60; GLUCOSE 122 MG/DL (70-105); SODIUM 140 MMOL/L (135-145); TOTAL PROTEIN 6.8 GM/DL (6.4-8.2)
[2019-07-22] MEDS: PHENAZOPYRIDINE 100 MG (PYRIDIUM) TABLET PO SCH ×3 (08:49→17:41)
[2019-07-22] MEDS: MAGNESIUM OXIDE (MAG-OX)400 MG TAB PO SCH ×2 (08:50→20:37)
[2019-07-22] MEDS: ASPIRIN E.C. 81 MG (ECOTRIN) TAB PO SCH (08:50)
[2019-07-22] MEDS: KCL 10 MEQ TAB (MICRO K) PO SCH ×4 (08:50→20:37)
[2019-07-22] MEDS: FOLIC ACID 1 MG TAB PO SCH (08:50)
[2019-07-22] MEDS: amLODIPine 5 MG (NORVASC) TAB PO SCH (08:50)
--- NOTE | 2019-07-22 10:06 | PM&R Progress Note ---
Subjective HPI/CC On Admission Date Seen by Provider: Jul 22, 2019 Time Seen by Provider: 09:00 CC: CVA w/left sided weakness HPI: (Med-surg Hospital course: Pt [facility] after she was found to have a sub-acute stroke confirmed on MRI with left sided weakness. Cardiology was consulted, Echocardiogram, Carotid ultrasound and labs obtained. Pt was placed on statin therapy, Aspirin therapy, and was deemed stable for DC in inpatient rehab to work on strengthening of the left side). Patient is currently ready for rehab and will maintain on statin treatment and ASA and complete CVA w/u while admitted to IRF. Subjective/Events-last exam Labs are normal Walking around very well PT and OT noting the progress Overall doing very well Conferred with sash repairer therapy notes Checked meds and labs Review of Systems Neurological: Weakness, Numbness, Incoordination Objective Exam Vital Signs Vital Signs Date Time Temp Pulse Resp B/P (MAP) Pulse Ox O2 Delivery O2 Flow Rate FiO2 07/22/19 16:58 36.3 83 16 135/85 (102) 96 Room Air 07/18/19 20:55 0.00 Capillary Refill : General Appearance: No Apparent Distress, WD/WN, Chronically ill HEENT: PERRL/EOMI, Normal ENT Inspection, Pharynx Normal, Moist Mucous Membranes Neck: Full Range of Motion, Normal Inspection, Non Tender, Supple Respiratory: Chest Non Tender, Lungs Clear, Normal Breath Sounds, No Accessory Muscle Use, No Respiratory Distress Cardiovascular: Regular Rate, Rhythm, No Edema, No Gallop, No JVD, No Murmur Gastrointestinal: Normal Bowel Sounds, No Organomegaly, No Pulsatile Mass, Non Tender, Soft Back: Normal Inspection, No CVA Tenderness, No Vertebral Tenderness Extremity: Normal Capillary Refill, Normal Inspection, Normal Range of Motion, Non Tender, No Calf Tenderness, No Pedal Edema Neurologic/Psychiatric: Alert, Oriented x3, Normal Mood/Affect, pipe turner II-XII Norm as Tested, Motor Weakness (left upper 3/5 and lower extremity 4/5) Skin: Normal Color, Warm/Dry Lymphatic: No Adenopathy Results/Procedures Lab Laboratory Tests 07/22/19 05:06 Patient resulted labs reviewed. FIM Transfers Therapy Code Descriptions/Definitions Functional [place] Measure: 0=Not Assessed/NA 4=Minimal Assistance 1=Total Assistance 5=Supervision or Setup 2=Maximal Assistance 6=Modified [place] 3=Moderate Assistance 7=Complete [place] Therapy Quality Codes: 6 Independent with activity with or without an assistive device 5 Patient requires set up or clean up by helper. Patient completes activity by themselves 4 Supervision or touching assist (CGA). [place] provide cues , steadying assist 3 The helper provides less than half the effort to complete the activity 2 The helper provides more than half the effort to complete the activity 1 Dependent. The helper does all the effort to complete an activity 7 Patient refused to complete or attempt activity 9 The patient did not perform the activity before the current illness or injury 88 Not attempted due to Medical conditions or safety concerns Transfers (B, C, W/C) (FIM): 4 Scootin Rollin Roll Left to Right (QC): 4 Supine to/from Sit: 6 Sit to/from Stand: 4 (CGA provided for safety, Pt able to follow skilled verb inst for hand placement and safety) Sit to Lying (QC): 4 Sit to Stand (QC): 4 Chair/Jnj-de-Dyogw Xfer(QC): 4 Bed to/from Chair: 6 Car Transfer (QC): 5 Gait Training Does the Patient Walk?: Yes Gait (FIM): 4 Distance (FIM): 3=150 ft Distance: 200, 150 Walk 10 feet (QC): 4 Walk 50 ft with 2 Turns(QC): 4 Walk 150 ft (QC): 4 Walking 10ft/uneven surface-QC: 4 Gait Level of Assist: 4 (CGA to SBA provided for safety, able to follow skilled verb inst for safety, distance from walker, gait quality and posture) Gait Persons Needed: 1 Gait Assistive Device: FWW Wheelchair Training Does the Pt Use a Wheelchair?: No Stair Training Stairs (FIM): 1 #of Steps: 1 1 Step (curb) (QC): 3 Level of Assist: 4 Mental Status/Objective Comprehension: 7 Expression: 7 Social Interaction: 7 Problem Solvin Memory: 7 ADL-Treatment Feedin (Set up to eat lunch) Eating (QC): 5 Groomin Oral Hygiene (QC): 4 Bathin Shower/Bathe Self (QC): 4 (CGA) Upper Extremity Dressin Upper Body Dressing (QC): 3 Lower Extremity Dressin Lower Body Dressing (QC): 3 On/Off Footwear (QC): 3 Toiletin Toileting Hygiene (QC): 4 Toilet/Commode Transfer: 4 Toilet Transfer (QC): 4 (CGA) Shower: 4 (CGA) Assessment/Plan Assessment and Plan Assess & Plan/Chief Complaint Assessment: CVA with left-sided weakness Urinary frequency Isolated fever Hypertension malignant type Diabetes mellitus new onset Smoker Loose stools Plan: Monitor blood pressure Monitor blood sugar Inpatient rehabilitation protocol with therapies HGA1c 7.4 (1) CVA (cerebral vascular accident) Status: Acute Qualifiers: CVA mechanism: unspecified Qualified Codes: I63.9 - Cerebral infarction, unspecified (2) Diabetes Status: Chronic Qualifiers: Diabetes mellitus type: type 2 Diabetes mellitus terminal computer operator insulin use: with terminal computer operator use Diabetes mellitus complication status: with circulatory complication Diabetes mellitus complication detail: with other circulatory complications Qualified Codes: E11.59 - Type 2 diabetes mellitus with other circulatory complications; Z79.4 - local intermodal truck driver (current) use of insulin (3) Hyperlipemia Status: Chronic Qualifiers: Hyperlipidemia type: mixed hyperlipidemia Qualified Codes: E78.2 - Mixed hyperlipidemia (4) Left-sided weakness Status: Acute (5) Hypokalemia Status: Acute (6) Hypertension Status: Chronic Qualifiers: Hypertension type: essential hypertension Qualified Codes: I10 - Essential (primary) hypertension HERMINIA WILBURN DO Jul 22, 2019 10:06
--- NOTE | 2019-07-22 10:50 | NUR ---
Pastoral care visit.
--- NOTE | 2019-07-22 11:56 | Physical Therapy Daily Note ---
PT Daily Note-Current Subjective Pt. agrees to Rx. States she feels she is doing really well and would like to think about being up ad bill. Pt. states she would like to have a image of where her CVA is in her brain. Pain Location: No Pain Reported Mental Status Patient Orientation: Normal For Age Transfers Therapy Code Descriptions/Definitions Functional [place] Measure: 0=Not Assessed/NA 4=Minimal Assistance 1=Total Assistance 5=Supervision or Setup 2=Maximal Assistance 6=Modified [place] 3=Moderate Assistance 7=Complete [place] Therapy Quality Codes: 6 Independent with activity with or without an assistive device 5 Patient requires set up or clean up by helper. Patient completes activity by themselves 4 Supervision or touching assist (CGA). [place] provide cues , steadying assist 3 The helper provides less than half the effort to complete the activity 2 The helper provides more than half the effort to complete the activity 1 Dependent. The helper does all the effort to complete an activity 7 Patient refused to complete or attempt activity 9 The patient did not perform the activity before the current illness or injury 88 Not attempted due to Medical conditions or safety concerns Transfers (B, C, W/C) (FIM): 6 Scootin Rollin Roll Left to Right (QC): 6 Supine to/from Sit: 6 Sit to/from Stand: 6 Sit to Lying (QC): 6 Sit to Stand (QC): 6 Chair/Zkx-kw-Qmzyh Xfer(QC): 6 Bed to/from Chair: 6 Gait Training Does the Patient Walk?: Yes Gait (FIM): 6 Distance (FIM): 3=150 ft (250,150) Gait Level of Assist: 6 Gait Persons Needed: 0 Gait Assistive Device: FWW gait more stable today, no LOB, LEs better aligned and controlled. Stair Training Stair Training: Handrails/: 2 handrails Stairs (FIM): 5 #of Steps: 8 Stairs: Pattern: Reciprocal Level of Assist: 5 Exercises Standing: Hip Abduction, Hamstring curls, Heel/toe raises, Marching, Mini squats Standing Reps: 20 NuStep Minutes: 12 NuStep Workload: 5 Assessment Current Status: Good Progress PT Short Term Goals Short Term Goals Time Frame: Jul 25, 2019 Transfers (B,C,W/C) (FIM): 5 Gait (FIM): 5 Gait Distance Comment: 200' Gait Level of Assist: 5 Gait Assistive Device: FWW PT Gasket Maker Goals Gasket Maker Goals PT Fci Goals Time Frame: Aug 08, 2019 Transfers (B,C,W/C) (FIM): 6 Sit to Lying (QC): 6 Lying-Sitting on Side/Bed(QC): 6 Sit to Stand (QC): 6 Rollin Roll Left to Right (QC): 6 Chair/Ijq-vt-Yhghi Xfer(QC): 6 Car Transfer (QC): 6 Gait (FIM): 6 Distance: 300' Walk 10 feet (QC): 6 Walk 10ft-Uneven Surface(QC): 6 Walk 50ft with 2 Turns (QC): 6 Walk 150 ft (QC): 6 Gait Level of Assist: 6 Gait Assistive Device: FWW Stairs (FIM): 2 # of Steps: 4 1 Step (curb) (QC): 4 4 Steps (QC): 4 Stairs Level Of Assist: 5 PT Plan Treatment/Plan Treatment Plan: Continue Plan of Care Treatment Plan: Bed Mobility, Education, Functional Activity Harsh, Functional Strength, Group Therapy, Gait, Safety, Therapeutic Exercise, Transfers Treatment Duration: Aug 08, 2019 Frequency: At least 5 of 7 days/Wk (IRF) Estimated Hrs Per Day: 1.5 hours per day Patient and/or Family Agrees t: Yes Safety Risks/Education Patient Education: Gait Training, Transfer Techniques, Steps, Correct Positioning, Disease Process, Safety Issues Teaching Recipient: Patient Teaching Methods: Demonstration, Discussion Response to Teaching: Verbalize Understanding, Return Demonstration, Reinforcement Needed education regarding what CVA is, pt. inquiring why she had CVA and that hers was ischemic and what that means etc. Time/GCodes Time In: 1100 Time Out: 1200 Total Billed Treatment Time: 60 Total Billed Treatment 1,GT15m,EX30m,FA15m JUDI JESUS BUMPER STRAIGHTENER Jul 22, 2019 11:56
--- NOTE | 2019-07-22 12:41 | Occupational Ther Daily Note ---
OT Current Status-Daily Note Subjective No pain reported. Appearance Pt. up in chair. States that she showered last night. Agrees to work with OT. Mental Status/Objective Patient Orientation: Person, Place, Time, Situation Therapy Code Descriptions/Definitions Functional [place] Measure: 0=Not Assessed/NA 4=Minimal Assistance 1=Total Assistance 5=Supervision or Setup 2=Maximal Assistance 6=Modified Price 3=Moderate Assistance 7=Complete Price ADL-Treatment Therapy Code Descriptions/Definitions Functional [place] Measure: 0=Not Assessed/NA 4=Minimal Assistance 1=Total Assistance 5=Supervision or Setup 2=Maximal Assistance 6=Modified [place] 3=Moderate Assistance 7=Complete [place] Therapy Quality Codes: 6 Independent with activity with or without an assistive device 5 Patient requires set up or clean up by helper. Patient completes activity by themselves 4 Supervision or touching assist (CGA). [place] provide cues , steadying assist 3 The helper provides less than half the effort to complete the activity 2 The helper provides more than half the effort to complete the activity 1 Dependent. The helper does all the effort to complete an activity 7 Patient refused to complete or attempt activity 9 The patient did not perform the activity before the current illness or injury 88 Not attempted due to Medical conditions or safety concerns Eating (FIM): 7 Eating (QC): 6 Toileting (FIM): 6 Toileting Hygiene (QC): 6 Transfers (B, C, W/C) (FIM): 6 Toilet/Commode Transfer (FIM): 6 Toilet Transfer (QC): 6 Pt. declines showering and is already dressed. Requests to use bathroom. Able to complete all toileting tasks with Mod I. Pt. and OT talked in depth regarding pt's discharge plan. Pt. and OT talked about all of the things that pt. has to be able to do to be independent at home. Pt. reports that she does the laundry, but that her spouse can assist with this. She also stands to do the dishes. Pt. lets her dog in and out, and verbalizes how she attaches him to his lead before letting him into the yard. OT and pt. problem solved through each task, and ways to make them safe and easy. Pt. is encouraged to sit in a chair while attaching lead to the dog, or to make the lead longer in which dog can come into house. Pt. is encouraged to keep her phone with her at all times, and to sit at sink while doing dishes. Pt. is shown walker basket and practices kitchen and laundry task using basket and alignment technician for easier access. Pt. is able to demonstrate ability to bend over to retrieve items from lower cabinets, and from dryer. Ambulated to therapy gym with Mod I. Pt. tolerated 5 minutes on arm bike using left hand only for strengthening. Worked on fine motor tasks with rubber band/pegs. Pt. is encouraged and educated on importance of using left hand during functional tasks to increase independence and strength. Pt. verbalizes understanding. Ambulated back to room. All needs met. Education OT Patient Education: Correct positioning, Exercise program, Modified ADL techniques, Progress toward Goal/Update tx plan, Purpose of tx/functional activities, Reviewed precautions, Rehab process, Transfer techniques, Use of a dapted equipment Teaching Recipient: Patient Teaching Methods: Demonstration, Discussion Response to Teaching: Verbalize Understanding, Return Demonstration OT Short Term Goals Short Term Goals Transfers (B,C,W/C) (FIM): 5 1=Demonstrate adherence to instructed precautions during ADL tasks. 2=Patient will verbalize/demonstrate understanding of assistive devices/modifications for ADL. 3=Patient will improve strength/tolerance for activity to enable patient to perform ADL's. OT Venetian Blind Machine Operator Goals Mcfp Goals Time Frame: Aug 01, 2019 Eating (FIM): 6 Eating (QC): 6 Groomin Oral Hygiene (QC): 6 Bathing(FIM): 5 Shower/Bathe Self (QC): 4 Upper Body Dressing(FIM): 6 Upper Body Dressing (QC): 6 Lower Body Dressing(FIM): 6 Lower Body Dressing (QC): 6 On/Off Footwear (QC): 6 Toileting(FIM): 6 Toileting Hygiene (QC): 6 Transfers (B,C,W/C) (FIM): 6 Toilet/Commode Transfer(FIM): 6 Toilet/Commode Transfer (QC): 6 Shower Transfer(FIM): 5 Additional Goals: 1-Demonstrate ADL Tasks, 2-Verbalize Understanding, 3- ImproveStrength/Harsh 1=Demonstrate adherence to instructed precautions during ADL tasks. 2=Patient will verbalize/demonstrate understanding of assistive devices/modifications for ADL. 3=Patient will improve strength/tolerance for activity to enable patient to perform ADL's. OT Education/Plan Problem List/Assessment Assessment: Decreased UE Strength, Impaired Coordination Discharge Recommendations Plan/Recommendations: Continue POC Therapy Discharge Recommendati: Post Acute OT Treatment Plan/Plan of Care Treatment,Training & Education: Yes Patient would benefit from OT for education, treatment and training to promote independence in ADL's, mobility, safety and/or upper extremity function for ADL's. Plan of Care: ADL Retraining, Functional Mobility, Group Exercise/Act as Ind, UE Funct Exercise/Act Treatment Duration: Aug 01, 2019 Frequency: At least 5 of 7 days/Wk (IRF) Estimated Hrs Per Day: 1.5 hours per day Agreement: Yes Rehab Potential: Good Time/GCodes Start Time: 08:30 Stop Time: 10:00 Total Time Billed (hr/min): 90 Billed Treatment Time 1, ADL x 45minutes, Ex x 15minutes, FA x 30minutes ZEENAT ROYAL OT Jul 22, 2019 12:41
--- NOTE | 2019-07-22 15:09 | Physical Therapy Daily Note ---
PT Daily Note-Current Subjective Agrees to Rx, states she is really wanting a cigarette. Pt. feels like she is making real progress. Pain Location: No Pain Reported Mental Status Patient Orientation: Normal For Age Transfers Therapy Code Descriptions/Definitions Functional [place] Measure: 0=Not Assessed/NA 4=Minimal Assistance 1=Total Assistance 5=Supervision or Setup 2=Maximal Assistance 6=Modified [place] 3=Moderate Assistance 7=Complete [place] Therapy Quality Codes: 6 Independent with activity with or without an assistive device 5 Patient requires set up or clean up by helper. Patient completes activity by themselves 4 Supervision or touching assist (CGA). [place] provide cues , steadying assist 3 The helper provides less than half the effort to complete the activity 2 The helper provides more than half the effort to complete the activity 1 Dependent. The helper does all the effort to complete an activity 7 Patient refused to complete or attempt activity 9 The patient did not perform the activity before the current illness or injury 88 Not attempted due to Medical conditions or safety concerns all TRFs toilet, bed and chair mod I Gait Training Does the Patient Walk?: Yes Distance (FIM): 3=150 ft ([id number]) Gait Assistive Device: FWW on off elevator, carpet to tile transitions and up down side walks with with uneven surfaces and grades, no LOB, pt.cleared for up ad bill Stair Training up down outside step curb with FWW SBA, good technique Assessment Current Status: Good Progress cleared for up ad bill status by this CARBIDE GRINDER PT Short Term Goals Short Term Goals Time Frame: Jul 25, 2019 Transfers (B,C,W/C) (FIM): 5 Gait (FIM): 5 Gait Distance Comment: 200' Gait Level of Assist: 5 Gait Assistive Device: FWW PT Customer Order Clerk Goals Mcc Goals PT Customer Order Clerk Goals Time Frame: Aug 08, 2019 Transfers (B,C,W/C) (FIM): 6 Sit to Lying (QC): 6 Lying-Sitting on Side/Bed(QC): 6 Sit to Stand (QC): 6 Rollin Roll Left to Right (QC): 6 Chair/Lyd-zs-Vnzmp Xfer(QC): 6 Car Transfer (QC): 6 Gait (FIM): 6 Distance: 300' Walk 10 feet (QC): 6 Walk 10ft-Uneven Surface(QC): 6 Walk 50ft with 2 Turns (QC): 6 Walk 150 ft (QC): 6 Gait Level of Assist: 6 Gait Assistive Device: FWW Stairs (FIM): 2 # of Steps: 4 1 Step (curb) (QC): 4 4 Steps (QC): 4 Stairs Level Of Assist: 5 PT Plan Treatment/Plan Treatment Plan: Continue Plan of Care Treatment Plan: Bed Mobility, Education, Functional Activity Harsh, Functional Strength, Group Therapy, Gait, Safety, Therapeutic Exercise, Transfers Treatment Duration: Aug 08, 2019 Frequency: At least 5 of 7 days/Wk (IRF) Estimated Hrs Per Day: 1.5 hours per day Patient and/or Family Agrees t: Yes Safety Risks/Education Patient Education: Gait Training, Transfer Techniques, Steps, Correct Positioning, Disease Process, Safety Issues Teaching Recipient: Patient Teaching Methods: Demonstration, Discussion Response to Teaching: Verbalize Understanding, Unable to Return Demonstration, Return Demonstration discussed hypertension and high blood sugars ie lab Time/GCodes Time In: 1405 Time Out: 1435 Total Billed Treatment Time: 30 Total Billed Treatment 1,GT30m JUDI JESUS CARBIDE GRINDER Jul 22, 2019 15:09
[2019-07-22 16:58] VITALS: BP 135/85
[2019-07-22] MEDS: ENOXAPARIN 40 MG/0.4 ML (LOVENOX) SYR SC SCH (17:41)
--- NOTE | 2019-07-22 19:31 | NUR ---
bedside report received from MARCUS JACKSON, assume care of pt
[2019-07-22] MEDS: IBUPROFEN TABLET 200 MG TAB PO PRN (20:39)
--- NOTE | 2019-07-22 20:39 | NUR ---
c/o back & rt wrist pain level 9/10 on numeric scale, Motrin 400mg po given
--- NOTE | 2019-07-22 20:40 | NUR ---
assessments & interventions completed, see assessments & interventions
--- NOTE | 2019-07-22 21:20 | NUR ---
rates pain level 2/10 on numeric scale
[2019-07-23 05:44] VITALS: BP 137/88
[2019-07-23] MEDS: MULTIVIT W/MINERALS TAB (THERAGRAN M) PO SCH (07:02)
[2019-07-23] MEDS: THIAMINE 100 MG (VITAMIN B-1) TAB PO SCH (07:02)
--- NOTE | 2019-07-23 07:25 | NUR ---
bedside report given to ASUNCION JACKSON
[2019-07-23] MEDS ORDERED: inSUlin ASPART (NovoLOG) 1 UNIT/0.01 ML (CHARGE PER UNIT) SC SCH (08:30)
[2019-07-23] MEDS ORDERED: PHENAZOPYRIDINE 100 MG (PYRIDIUM) TABLET PO PRN (08:45)
[2019-07-23] MEDS: KCL 10 MEQ TAB (MICRO K) PO SCH ×4 (09:31→20:22)
[2019-07-23] MEDS: MAGNESIUM OXIDE (MAG-OX)400 MG TAB PO SCH ×2 (09:31→20:17)
[2019-07-23] MEDS: FOLIC ACID 1 MG TAB PO SCH (09:31)
[2019-07-23] MEDS: ASPIRIN E.C. 81 MG (ECOTRIN) TAB PO SCH (09:31)
[2019-07-23] MEDS: amLODIPine 5 MG (NORVASC) TAB PO SCH (09:31)
[2019-07-23] MEDS: glyBURIDE 2.5 MG (MICRONASE) TAB PO SCH (09:32)
--- NOTE | 2019-07-23 10:03 | PM&R Progress Note ---
Subjective HPI/CC On Admission Date Seen by Provider: Jul 23, 2019 Time Seen by Provider: 09:00 CC: CVA w/left sided weakness HPI: (Med-surg Hospital course: Pt had a brief hospital course on [facility] after she was found to have a sub-acute stroke confirmed on MRI with left sided weakness. Cardiology was consulted, Echocardiogram, Carotid ultrasound and labs obtained. Pt was placed on statin therapy, Aspirin therapy, and was deemed stable for DC in inpatient rehab to work on strengthening of the left side). Patient is currently ready for rehab and will maintain on statin treatment and ASA and complete CVA w/u while admitted to IRF. Subjective/Events-last exam Pt up ad-bill now. Doing well. Acu-checks AC and HS will be ordered. Sliding scale A will be starter. Glyburide of 1.25 MG will be started first dose now. Goes to [facility] in [place], [place]. Wants to know about driving. Needs Xanax at discharge due to the emotional anxiety issue she is having since her stroke. Having some vaginal irritation so will initiate a douche since it does not appear to be a yeast infection. Changing Pyridium to prn. Conferred with electron beam welding machine operator therapy notes Checked meds and labs Review of Systems General: Fatigue Objective Exam Vital Signs Vital Signs Date Time Temp Pulse Resp B/P (MAP) Pulse Ox O2 Delivery O2 Flow Rate FiO2 07/23/19 17:27 36.7 91 18 132/84 (100) 96 Room Air 07/18/19 20:55 0.00 Capillary Refill : General Appearance: No Apparent Distress, WD/WN, Chronically ill HEENT: PERRL/EOMI, Normal ENT Inspection, Pharynx Normal, Moist Mucous Membranes Neck: Full Range of Motion, Normal Inspection, Non Tender, Supple Respiratory: Chest Non Tender, Lungs Clear, Normal Breath Sounds, No Accessory Muscle Use, No Respiratory Distress Cardiovascular: Regular Rate, Rhythm, No Edema, No Gallop, No JVD, No Murmur Gastrointestinal: Normal Bowel Sounds, No Organomegaly, No Pulsatile Mass, Non Tender, Soft Back: Normal Inspection, No CVA Tenderness, No Vertebral Tenderness Extremity: Normal Capillary Refill, Normal Inspection, Normal Range of Motion, Non Tender, No Calf Tenderness, No Pedal Edema Neurologic/Psychiatric: Alert, Oriented x3, Normal Mood/Affect, clinical services professional II-XII Norm as Tested, Motor Weakness (left upper 3/5 and lower extremity 4/5) Skin: Normal Color, Warm/Dry Lymphatic: No Adenopathy Results/Procedures Lab Patient resulted labs reviewed. FIM Transfers Therapy Code Descriptions/Definitions Functional [place] Measure: 0=Not Assessed/NA 4=Minimal Assistance 1=Total Assistance 5=Supervision or Setup 2=Maximal Assistance 6=Modified [place] 3=Moderate Assistance 7=Complete [place] Therapy Quality Codes: 6 Independent with activity with or without an assistive device 5 Patient requires set up or clean up by helper. Patient completes activity by themselves 4 Supervision or touching assist (CGA). [place] provide cues , steadying assist 3 The helper provides less than half the effort to complete the activity 2 The helper provides more than half the effort to complete the activity 1 Dependent. The helper does all the effort to complete an activity 7 Patient refused to complete or attempt activity 9 The patient did not perform the activity before the current illness or injury 88 Not attempted due to Medical conditions or safety concerns Transfers (B, C, W/C) (FIM): 6 Scootin Rollin Roll Left to Right (QC): 6 Supine to/from Sit: 6 Sit to/from Stand: 6 Sit to Lying (QC): 6 Sit to Stand (QC): 6 Chair/Oxe-rz-Xqtzj Xfer(QC): 6 Bed to/from Chair: 6 Car Transfer (QC): 5 Gait Training Does the Patient Walk?: Yes Gait (FIM): 6 Distance (FIM): 3=150 ft ([id number]) Distance: 200, 150 Walk 10 feet (QC): 4 Walk 50 ft with 2 Turns(QC): 4 Walk 150 ft (QC): 4 Walking 10ft/uneven surface-QC: 4 Gait Level of Assist: 6 Gait Persons Needed: 0 Gait Assistive Device: FWW Wheelchair Training Does the Pt Use a Wheelchair?: No Stair Training Stair Training: Handrails/: 2 handrails Stairs (FIM): 5 #of Steps: 8 1 Step (curb) (QC): 3 Stairs: Pattern: Reciprocal Level of Assist: 5 Mental Status/Objective Comprehension: 7 Expression: 7 Social Interaction: 7 Problem Solvin Memory: 7 ADL-Treatment Feedin Eating (QC): 6 Groomin Oral Hygiene (QC): 4 Bathin Shower/Bathe Self (QC): 4 (CGA) Upper Extremity Dressin Upper Body Dressing (QC): 3 Lower Extremity Dressin Lower Body Dressing (QC): 3 On/Off Footwear (QC): 3 Toiletin Toileting Hygiene (QC): 6 Toilet/Commode Transfer: 6 Toilet Transfer (QC): 6 Shower: 4 (CGA) Assessment/Plan Assessment and Plan Assess & Plan/Chief Complaint Assessment: CVA with left-sided weakness Urinary frequency Isolated fever Hypertension malignant type Diabetes mellitus new onset Smoker Loose stools Plan: Monitor blood pressure Monitor blood sugar Inpatient rehabilitation protocol with therapies HGA1c 7.4 so added Glyburide 1.25mg daily (1) CVA (cerebral vascular accident) Status: Acute Qualifiers: CVA mechanism: unspecified Qualified Codes: I63.9 - Cerebral infarction, unspecified (2) Diabetes Status: Chronic Qualifiers: Diabetes mellitus type: type 2 Diabetes mellitus skilled nursing insulin use: with termite control service representative use Diabetes mellitus complication status: with circulatory complication Diabetes mellitus complication detail: with other circulatory complications Qualified Codes: E11.59 - Type 2 diabetes mellitus with other circulatory complications; Z79.4 - [facility] (current) use of insulin (3) Hyperlipemia Status: Chronic Qualifiers: Hyperlipidemia type: mixed hyperlipidemia Qualified Codes: E78.2 - Mixed hyperlipidemia (4) Left-sided weakness Status: Acute (5) Hypokalemia Status: Acute (6) Hypertension Status: Chronic Qualifiers: Hypertension type: essential hypertension Qualified Codes: I10 - Essential (primary) hypertension HERMINIA WILBURN DO Jul 23, 2019 10:03
--- NOTE | 2019-07-23 10:20 | NUR ---
Notified by OT that patient feels ready for discharge. Discussed discharge with patient. Patient reports she feels ready for discharge and would like to go home tomorrow. Discussed with PT and OT. Patient is up ad bill and therapy feels patient is safe to discharge home. Discussed with Dr. Ayoub, who agrees that patient is stable for discharge tomorrow. Discussed HHC versus outpatient therapy with patient. Patient prefers outpatient therapy if recommended by team; however, patient is not certain she needs continued therapy at this time. Patient verbalizes concern regarding cost of medication. RN printed off medication administration record and it appears patient has 3 new medications: Metoprolol Succinate, Atorvastatin Calcium, Glyburide. In addition, RN reports staff has started checking patient's blood sugars AC and HS. RN placed order for diabetic education. Will confirm with Dr. Ayoub discharge medications and if patient will require a glucometer at discharge. Once discharge orders are finalized, will obtain cost of medication from patient's preferred pharmacy, [facility] in [place], [place]. Informed patient of the plan and she verbalizes understanding.
[2019-07-23] MEDS: inSUlin ASPART (NovoLOG) 1 UNIT/0.01 ML (CHARGE PER UNIT) SC SCH ×3 (11:00→21:00)
--- NOTE | 2019-07-23 11:49 | NUR ---
RD ASSESSMENT Pt was awake and pleasant during consult for DM education. Pt states current appetite is pretty good, and continued to improve since initial assessment. Pt states no current issues with n/v/d/c at this time. Pt states no recent weight changes. Note unable to determine recent wt hx, per chart review. PES Statement: Food- and nutrition-related knowledge deficit related to new diagnosis of DM as evidenced by patient interview INTERVENTION: Continue with current diet order of CHO 60g/m 3 snack. Provided handout and discussed CHO counting with Pt. Pt asked questions about certain foods and if they were appropriate for DM pts. MONITOR/EVALUATE: Weight PO Intake Labs Timo Lara MS, RD [phone]
--- NOTE | 2019-07-23 11:53 | Occupational Ther Daily Note ---
OT Current Status-Daily Note Subjective No pain reported. Pt. verbalizes that she would like to go home soon. Appearance Pt. up in chair. Agrees to work with OT. Mental Status/Objective Patient Orientation: Person, Place, Time, Situation Therapy Code Descriptions/Definitions Functional [place] Measure: 0=Not Assessed/NA 4=Minimal Assistance 1=Total Assistance 5=Supervision or Setup 2=Maximal Assistance 6=Modified [place] 3=Moderate Assistance 7=Complete [place] ADL-Treatment Therapy Code Descriptions/Definitions Functional [place] Measure: 0=Not Assessed/NA 4=Minimal Assistance 1=Total Assistance 5=Supervision or Setup 2=Maximal Assistance 6=Modified [place] 3=Moderate Assistance 7=Complete [place] Therapy Quality Codes: 6 Independent with activity with or without an assistive device 5 Patient requires set up or clean up by helper. Patient completes activity by themselves 4 Supervision or touching assist (CGA). [place] provide cues , steadying assist 3 The helper provides less than half the effort to complete the activity 2 The helper provides more than half the effort to complete the activity 1 Dependent. The helper does all the effort to complete an activity 7 Patient refused to complete or attempt activity 9 The patient did not perform the activity before the current illness or i njury 88 Not attempted due to Medical conditions or safety concerns Eating (FIM): 7 Eating (QC): 6 Grooming (FIM): 6 Oral Hygiene (QC): 6 Bathing (FIM): 6 Shower/Bathe Self (QC): 6 Upper Body (FIM): 6 Upper Body Dressing (QC): 6 Lower Body Dressing (FIM): 6 Lower Body Dressing (QC): 6 On/Off Footwear (QC): 6 Toileting (FIM): 6 Toileting Hygiene (QC): 6 Transfers (B, C, W/C) (FIM): 6 Toilet/Commode Transfer (FIM): 6 Toilet Transfer (QC): 6 Shower Transfer(FIM): 6 Other Treatment Pt. is up in chair. She reports that she is feeling good. Would like to know when she can return home. Pt. was made up ad bill yesterday. Has already showered and dressed self today. Pt. ambulated to therapy gym with Mod I using walker. Completed series of fine motor skills and UE strengthening with arm bike x 10 minutes at mod resistance, bilateral coordination tasks with riddle bag and cone reach, and fine motor tasks with pinching small therapy clothespins, putty, and checkers. Noted that pt. continues to increase use of left hand and states that it is feeling stronger. Reports that it feels "slow," but is able to use it in functional tasks. Pt. would like to return home with spouse. Pt. and OT have practiced kitchen tasks as well as problem solved for leashing her dog and performing other functional tasks at home. All needs met back in room. Education OT Patient Education: Correct positioning, Exercise program, Modified ADL techniques, Progress toward Goal/Update tx plan, Purpose of tx/functional activities, Reviewed precautions, Rehab process, Transfer techniques Teaching Recipient: Patient Teaching Methods: Demonstration, Discussion Response to Teaching: Verbalize Understanding, Return Demonstration OT Short Term Goals Short Term Goals Transfers (B,C,W/C) (FIM): 5 1=Demonstrate adherence to instructed precautions during ADL tasks. 2=Patient will verbalize/demonstrate understanding of assistive devices/modifications for ADL. 3=Patient will improve strength/tolerance for activity to enable patient to perform ADL's. OT [facility] Goals Loan Servicing Officer Goals Time Frame: Aug 01, 2019 Eating (FIM): 6 Eating (QC): 6 Groomin Oral Hygiene (QC): 6 Bathing(FIM): 5 Shower/Bathe Self (QC): 4 Upper Body Dressing(FIM): 6 Upper Body Dressing (QC): 6 Lower Body Dressing(FIM): 6 Lower Body Dressing (QC): 6 On/Off Footwear (QC): 6 Toileting(FIM): 6 Toileting Hygiene (QC): 6 Transfers (B,C,W/C) (FIM): 6 Toilet/Commode Transfer(FIM): 6 Toilet/Commode Transfer (QC): 6 Shower Transfer(FIM): 5 Additional Goals: 1-Demonstrate ADL Tasks, 2-Verbalize Understanding, 3- ImproveStrength/Harsh 1=Demonstrate adherence to instructed precautions during ADL tasks. 2=Patient will verbalize/demonstrate understanding of assistive dev ices/modifications for ADL. 3=Patient will improve strength/tolerance for activity to enable patient to perform ADL's. OT Education/Plan Problem List/Assessment Assessment: Decreased Activ Tolerance Discharge Recommendations Plan/Recommendations: Continue POC Therapy Discharge Recommendati: Post Acute OT (outpt OT for continued hand strengthening.) Treatment Plan/Plan of Care Treatment,Training & Education: Yes Patient would benefit from OT for education, treatment and training to promote independence in ADL's, mobility, safety and/or upper extremity function for ADL's. Plan of Care: ADL Retraining, Functional Mobility, Group Exercise/Act as Ind, UE Funct Exercise/Act Treatment Duration: Aug 01, 2019 Frequency: At least 5 of 7 days/Wk (IRF) Estimated Hrs Per Day: 1.5 hours per day Agreement: Yes Rehab Potential: Good Time/GCodes Start Time: 08:30 Stop Time: 10:00 Total Time Billed (hr/min): 90 Billed Treatment Time 1, ADL x 30minutes, Ex x 30minutes, FA x 30minutes ZEENAT ROYAL OT Jul 23, 2019 11:53
--- NOTE | 2019-07-23 11:56 | Physical Therapy Daily Note ---
PT Daily Note-Current Subjective Pleasant, jovial, loves to visit and share stories. Ready to go home tomorrow. Pain Location: No Pain Reported Mental Status Patient Orientation: Normal For Age Transfers Therapy Code Descriptions/Definitions Functional [place] Measure: 0=Not Assessed/NA 4=Minimal Assistance 1=Total Assistance 5=Supervision or Setup 2=Maximal Assistance 6=Modified [place] 3=Moderate Assistance 7=Complete [place] Therapy Quality Codes: 6 Independent with activity with or without an assistive device 5 Patient requires set up or clean up by helper. Patient completes activity by themselves 4 Supervision or touching assist (CGA). [place] provide cues , steadying assist 3 The helper provides less than half the effort to complete the activity 2 The helper provides more than half the effort to complete the activity 1 Dependent. The helper does all the effort to complete an activity 7 Patient refused to complete or attempt activity 9 The patient did not perform the activity before the current illness or injury 88 Not attempted due to Medical conditions or safety concerns Transfers (B, C, W/C) (FIM): 6 Scootin Rollin Roll Left to Right (QC): 6 Supine to/from Sit: 6 Sit to/from Stand: 6 Sit to Lying (QC): 6 Sit to Stand (QC): 6 Chair/Toy-nw-Yxafc Xfer(QC): 6 Bed to/from Chair: 6 Car Transfer (QC): 6 up ad bill for all Gait Training Does the Patient Walk?: Yes Gait (FIM): 6 Distance (FIM): 3=150 ft (200x2) Walk 10 feet (QC): 6 Walk 50 ft with 2 Turns(QC): 6 Walk 150 ft (QC): 6 Walking 10ft/uneven surface-QC: 6 Gait Level of Assist: 6 Gait Persons Needed: 0 Gait Assistive Device: FWW up ad bill, pt. fitted with FWW from donor closet also accomodated with tennis ball skids on back Stair Training Stair Training: Handrails/: 2 handrails Stairs (FIM): 6 #of Steps: 12 1 Step (curb) (QC): 6 4 Steps (QC): 6 12 Steps (QC): 6 Stairs: Pattern: Reciprocal Level of Assist: 6 Balance Picking up an Object (QC): 6 Exercises Supine Ex: Bridging, Ankle pumps, Glut sets, Heel Slides, Short Arc Quads, Scooting, Straight leg raise, Hip abd/add Supine Reps: 15 Seated Therapy Exercises: Ankle pumps, Sit to stand, Long arc quads Seated Reps: 12 Assessment Current Status: Excellent Progress PT Short Term Goals Short Term Goals Time Frame: Jul 25, 2019 Transfers (B,C,W/C) (FIM): 5 Gait (FIM): 5 Gait Distance Comment: 200' Gait Level of Assist: 5 Gait Assistive Device: FWW PT Alf Goals Circuit Tester Goals PT Circuit Tester Goals Time Frame: Aug 08, 2019 Transfers (B,C,W/C) (FIM): 6 Sit to Lying (QC): 6 Lying-Sitting on Side/Bed(QC): 6 Sit to Stand (QC): 6 Rollin Roll Left to Right (QC): 6 Chair/Hzd-yt-Natie Xfer(QC): 6 Car Transfer (QC): 6 Gait (FIM): 6 Distance: 300' Walk 10 feet (QC): 6 Walk 10ft-Uneven Surface(QC): 6 Walk 50ft with 2 Turns (QC): 6 Walk 150 ft (QC): 6 Gait Level of Assist: 6 Gait Assistive Device: FWW Stairs (FIM): 2 # of Steps: 4 1 Step (curb) (QC): 4 4 Steps (QC): 4 Stairs Level Of Assist: 5 PT Plan Treatment/Plan Treatment Plan: Continue Plan of Care Treatment Plan: Bed Mobility, Education, Functional Activity Harsh, Functional Strength, Group Therapy, Gait, Safety, Therapeutic Exercise, Transfers Treatment Duration: Aug 08, 2019 Frequency: At least 5 of 7 days/Wk (IRF) Estimated Hrs Per Day: 1.5 hours per day Patient and/or Family Agrees t: Yes Safety Risks/Education Patient Education: Gait Training, Transfer Techniques, Steps, Correct Positioning, Disease Process, Safety Issues Teaching Recipient: Patient Teaching Methods: Demonstration, Discussion Response to Teaching: Verbalize Understanding, Return Demonstration, Reinforcement Needed Time/GCodes Time In: 1100 Time Out: 1200 Total Billed Treatment Time: 60 Total Billed Treatment 1,GT20m,FA30m,EX10m JUDI JESUS TEXTILE MACHINE MECHANIC Jul 23, 2019 11:56
--- NOTE | 2019-07-23 12:29 | NUR ---
Unable to obtain vinegar water whit[place]. Dr. Vallecillo.
--- NOTE | 2019-07-23 14:26 | Physical Therapy Daily Note ---
PT Daily Note-Current Subjective Pt. agrees to Rx. Excited to go home tomorrow. Pain Location: No Pain Reported Mental Status Patient Orientation: Normal For Age Transfers Therapy Code Descriptions/Definitions Functional [place] Measure: 0=Not Assessed/NA 4=Minimal Assistance 1=Total Assistance 5=Supervision or Setup 2=Maximal Assistance 6=Modified [place] 3=Moderate Assistance 7=Complete [place] Therapy Quality Codes: 6 Independent with activity with or without an assistive device 5 Patient requires set up or clean up by helper. Patient completes activity by themselves 4 Supervision or touching assist (CGA). [place] provide cues , steadying assist 3 The helper provides less than half the effort to complete the activity 2 The helper provides more than half the effort to complete the activity 1 Dependent. The helper does all the effort to complete an activity 7 Patient refused to complete or attempt activity 9 The patient did not perform the activity before the current illness or injury 88 Not attempted due to Medical conditions or safety concerns all TRFs Mod I Gait Training FWW mod I to from Rx up ad bill ' Exercises Standing: Hip Abduction, Hamstring curls, Heel/toe raises, Marching, Mini squats, Sit to Stand Standing Reps: 15 Neuromuscular pt. increased VYAS score to 53/56 Assessment Current Status: Good Progress PT Short Term Goals Short Term Goals Time Frame: Jul 25, 2019 Transfers (B,C,W/C) (FIM): 5 Gait (FIM): 5 Gait Distance Comment: 200' Gait Level of Assist: 5 Gait Assistive Device: FWW PT Sprayer Automatic Spray Machine Goals Jail Goals PT Jail Goals Time Frame: Aug 08, 2019 Transfers (B,C,W/C) (FIM): 6 Sit to Lying (QC): 6 Lying-Sitting on Side/Bed(QC): 6 Sit to Stand (QC): 6 Rollin Roll Left to Right (QC): 6 Chair/Lpw-io-Ajbrp Xfer(QC): 6 Car Transfer (QC): 6 Gait (FIM): 6 Distance: 300' Walk 10 feet (QC): 6 Walk 10ft-Uneven Surface(QC): 6 Walk 50ft with 2 Turns (QC): 6 Walk 150 ft (QC): 6 Gait Level of Assist: 6 Gait Assistive Device: FWW Stairs (FIM): 2 # of Steps: 4 1 Step (curb) (QC): 4 4 Steps (QC): 4 Stairs Level Of Assist: 5 PT Plan Treatment/Plan Treatment Plan: Continue Plan of Care Treatment Plan: Bed Mobility, Education, Functional Activity Harsh, Functional Strength, Group Therapy, Gait, Safety, Therapeutic Exercise, Transfers Treatment Duration: Aug 08, 2019 Frequency: At least 5 of 7 days/Wk (IRF) Estimated Hrs Per Day: 1.5 hours per day Patient and/or Family Agrees t: Yes Safety Risks/Education Patient Education: Correct Positioning, Disease Process, Safety Issues Teaching Methods: Discussion Response to Teaching: Return Demonstration Time/GCodes Time In: 1355 Time Out: 1425 Total Billed Treatment Time: 30 Total Billed Treatment 1,NM10m,EX20m JUDI JESUS HEALTH EDUCATION SPECIALIST Jul 23, 2019 14:25
--- NOTE | 2019-07-23 15:15 | NUR ---
Followed up with patient regarding discharge tomorrow. Patient plans to leave around 1pm. Awaiting finalized discharge orders/medications from Dr. Ayoub.
[2019-07-23 17:27] VITALS: BP 132/84
--- NOTE | 2019-07-23 19:24 | NUR ---
bedside report received from ASUNCION JACKSON, assume care of pt
[2019-07-23] MEDS ORDERED: PHEN-826 PO (20:15)
[2019-07-23] MEDS ORDERED: MULT-178 PO (20:15)
[2019-07-23] MEDS ORDERED: AMLO5TAB9 PO (20:15)
[2019-07-23] MEDS ORDERED: POTA10TA36 PO (20:15)
[2019-07-23] MEDS ORDERED: LORA-404 PO (20:15)
[2019-07-23] MEDS ORDERED: ATOR80TA76 PO (20:15)
[2019-07-23] MEDS ORDERED: MAGN400T6 PO (20:15)
[2019-07-23] MEDS ORDERED: GLYB2.5T4 PO (20:15)
[2019-07-23] MEDS ORDERED: METO-387 PO (20:15)
[2019-07-23] MEDS: SENNA W/DOCUSATE (SENOKOT S) TABLET PO PRN (20:18)
[2019-07-23] MEDS: IBUPROFEN TABLET 200 MG TAB PO PRN ×2 (20:19→20:45)
--- NOTE | 2019-07-23 20:19 | NUR ---
c/o pain level 9/10 on numeric scale, Motrin 400mg po, took Senokot 1 tab po
--- NOTE | 2019-07-23 21:20 | NUR ---
resting quietly in bed, pain level 0/10 on flacc scale
[2019-07-24] MEDS: SENNA W/DOCUSATE (SENOKOT S) TABLET PO PRN (02:31)
[2019-07-24 05:15] VITALS: BP 137/79
[2019-07-24] MEDS: inSUlin ASPART (NovoLOG) 1 UNIT/0.01 ML (CHARGE PER UNIT) SC SCH ×2 (06:00→11:20)
[2019-07-24] MEDS: THIAMINE 100 MG (VITAMIN B-1) TAB PO SCH (06:48)
[2019-07-24] MEDS: glyBURIDE 2.5 MG (MICRONASE) TAB PO SCH (06:49)
[2019-07-24] MEDS: MULTIVIT W/MINERALS TAB (THERAGRAN M) PO SCH (06:49)
--- NOTE | 2019-07-24 07:25 | NUR ---
bedside report given to ASUNCION JACKSON
[2019-07-24] MEDS: FOLIC ACID 1 MG TAB PO SCH (08:43)
[2019-07-24] MEDS: MAGNESIUM OXIDE (MAG-OX)400 MG TAB PO SCH (08:43)
[2019-07-24] MEDS: ASPIRIN E.C. 81 MG (ECOTRIN) TAB PO SCH (08:43)
[2019-07-24] MEDS: amLODIPine 5 MG (NORVASC) TAB PO SCH (08:44)
[2019-07-24] MEDS: KCL 10 MEQ TAB (MICRO K) PO SCH ×2 (08:53→13:06)
--- NOTE | 2019-07-24 10:04 | Discharge Summary ---
Diagnosis/Chief Complaint Date of Admission Jul 18, 2019 at 11:04 Date of Discharge Discharge Date: Jul 24, 2019 Discharge Diagnosis Assessment: CVA with left-sided weakness Urinary frequency Isolated fever Hypertension malignant type Diabetes mellitus new onset Smoker Loose stools Plan: Monitor blood pressure Monitor blood sugar Inpatient rehabilitation protocol with therapies HGA1c 7.4 so added Glyburide 1.25mg daily (1) CVA (cerebral vascular accident) Status: Acute Qualifiers: CVA mechanism: unspecified Qualified Codes: I63.9 - Cerebral infarction, unspecified (2) Diabetes Status: Chronic Qualifiers: Diabetes mellitus type: type 2 Diabetes mellitus terminal gauger insulin use: with snf use Diabetes mellitus complication status: with circulatory complication Diabetes mellitus complication detail: with other circulatory complications Qualified Codes: E11.59 - Type 2 diabetes mellitus with other circulatory complications; Z79.4 - jail (current) use of insulin (3) Hyperlipemia Status: Chronic Qualifiers: Hyperlipidemia type: mixed hyperlipidemia Qualified Codes: E78.2 - Mixed hyperlipidemia (4) Left-sided weakness Status: Acute (5) Hypokalemia Status: Acute (6) Hypertension Status: Chronic Qualifiers: Hypertension type: essential hypertension Qualified Codes: I10 - Essential (primary) hypertension Discharge Summary Discharge Physical Examination Allergies: Coded Allergies: No Known Drug Allergies (Unverified , 07/16/19) Vitals & I&Os Vital Signs Date Time Temp Pulse Resp B/P (MAP) Pulse Ox O2 Delivery O2 Flow Rate FiO2 07/24/19 09:00 Room Air 07/24/19 09:00 98 0.00 07/24/19 05:15 36.4 80 18 137/79 (98) General Appearance: Alert, Oriented X3, Cooperative Respiratory: Clear to Auscultation Cardiovascular: Regular Rate Neuro: Normal Gait, Normal Speech, Strength at 5/5 X4 Ext Hospital Course Was the Problem List Reviewed?: Yes Hospital Course: Pt had an uncomplicated hospital course for 7 days n inpatient rehab after suffering a stroke and left sided weakness. She participated in all therapies. Blood pressure was controlled on multiple meds, low does of an oral hypoglycemic agent was initiated at time the day before DC with good blood sugar control and she will have close follow up with PCP for glucometer and all meds were sent in including Aspirin therapy, statin, and multiple blood pressure medications and she was deemed stable, for DC Labs (last 24 hrs) Laboratory Tests 07/18/19 11:04: Lab Scanned Report Referred Lab Report 07/19/19 09:33: White Blood Count 11.5H, Red Blood Count 4.07L, Hemoglobin 13.9, Hematocrit 40, Mean Corpuscular Volume 97, Mean Corpuscular Hemoglobin 34, Mean Corpuscular Hemoglobin Concent 35, Red Cell Distribution Width 12.6, Platelet Count 241, Mean Platelet Volume 9.8, Sodium Level 139, Potassium Level 3.3L, Chloride Level 101, Carbon Dioxide Level 27, Anion Gap 11, Blood Urea Nitrogen 11, Creatinine 0.82, Estimat Glomerular Filtration Rate > 60, BUN/Creatinine Ratio 13, Glucose Level 113H, Calcium Level 9.9, Corrected Calcium 10.0, Total Bilirubin 0.9, Aspartate Amino Transf (AST/SGOT) 18, Alanine Aminotransferase (ALT/SGPT) 13, Alkaline Phosphatase 99, Total Protein 7.8, Albumin 3.9 07/19/19 10:00: Urine Color YELLOW, Urine Clarity SLIGHTLY CLOUDY, Urine pH 6, Urine Specific [place] 1.015L, Urine Protein 2+H, Urine Glucose (UA) NEGATIVE, Urine Ketones 2+H, Urine Nitrite NEGATIVE, Urine Bilirubin 1+H, Urine Urobilinogen 1, Urine Leukocyte Esterase 2+H, Urine RBC (Auto) 1+H, Urine RBC RARE, Urine WBC 2-5, Urine Squamous Epithelial Cells 25-50H, Urine Crystals NONE, Urine Bacteria MODERATEH, Urine Casts NONE, Urine Mucus SMALLH, Urine Culture Indicated YES 07/19/19 10:55: Glucometer 127H 07/22/19 05:06: White Blood Count 7.6, Red Blood Count 3.84L, Hemoglobin 12.7, Hematocrit 38, Mean Corpuscular Volume 100H, Mean Corpuscular Hemoglobin 33, Mean Corpuscular Hemoglobin Concent 33, Red Cell Distribution Width 12.6, Platelet Count 278, Mean Platelet Volume 10.8H, Neutrophils (%) (Auto) 61, Lymphocytes (%) (Auto) 24, Monocytes (%) (Auto) 12, Eosinophils (%) (Auto) 2, Basophils (%) (Auto) 0, Neutrophils # (Auto) 4.7, Lymphocytes # (Auto) 1.8, Monocytes # (Auto) 0.9, Eosinophils # (Auto) 0.2, Basophils # (Auto) 0.0, Sodium Level 140, Potassium Level 4.0, Chloride Level 107, Carbon Dioxide Level 23, Anion Gap 10, Blood Urea Nitrogen 14, Creatinine 0.72, Estimat Glomerular Filtration Rate > 60, BUN/Creatinine Ratio 19, Glucose Level 122H, Calcium Level 9.2, Corrected Calcium 9.5, Total Bilirubin 0.4, Aspartate Amino Transf (AST/SGOT) 30, Alanine Aminotransferase (ALT/SGPT) 22, Alkaline Phosphatase 80, Total Protein 6.8, Albumin 3.6 07/23/19 10:51: Glucometer 121H 07/23/19 15:49: Glucometer 147H 07/23/19 20:50: Glucometer 130H 07/24/19 06:47: Glucometer 139H 07/24/19 11:06: Glucometer 136H Microbiology 07/19/19 Urine Culture - Final, Complete NO GROWTH Pending Labs Microbiology Date/Time Source Procedure Growth Status 07/19/19 10:00 Urine Straight Cath, In/Out Urine Culture - Final NO GROWTH Complete Laboratory Tests 07/18/19 11:04: Lab Scanned Report Referred Lab Report 07/19/19 09:33: White Blood Count 11.5, Red Blood Count 4.07, Hemoglobin 13.9, Hematocrit 40, M jass Corpuscular Volume 97, Mean Corpuscular Hemoglobin 34, Mean Corpuscular Hemoglobin Concent 35, Red Cell Distribution Width 12.6, Platelet Count 241, Mean Platelet Volume 9.8, Sodium Level 139, Potassium Level 3.3, Chloride Level 101, Carbon Dioxide Level 27, Anion Gap 11, Blood Urea Nitrogen 11, Creatinine 0.82, Estimat Glomerular Filtration Rate > 60, BUN/Creatinine Ratio 13, Glucose Level 113, Calcium Level 9.9, Corrected Calcium 10.0, Total Bilirubin 0.9, Aspartate Amino Transf (AST/SGOT) 18, Alanine Aminotransferase (ALT/SGPT) 13, Alkaline Phosphatase 99, Total Protein 7.8, Albumin 3.9 07/19/19 10:00: Urine Color YELLOW, Urine Clarity SLIGHTLY CLOUDY, Urine pH 6, Urine Specific [place] 1.015, Urine Protein 2+, Urine Glucose (UA) NEGATIVE, Urine Ketones 2+, Urine Nitrite NEGATIVE, Urine Bilirubin 1+, Urine Urobilinogen 1, Urine Leukocyte Esterase 2+, Urine RBC (Auto) 1+, Urine RBC RARE, Urine WBC 2-5, Urine Squamous Epithelial Cells 25-50, Urine Crystals NONE, Urine Bacteria MODERATE, Urine Casts NONE, Urine Mucus SMALL, Urine Culture Indicated YES 07/19/19 10:55: Glucometer 127 07/22/19 05:06: White Blood Count 7.6, Red Blood Count 3.84, Hemoglobin 12.7, Hematocrit 38, Mean Corpuscular Volume 100, Mean Corpuscular Hemoglobin 33, Mean Corpuscular Hemoglobin Concent 33, Red Cell Distribution Width 12.6, Platelet Count 278, Mean Platelet Volume 10.8, Neutrophils (%) (Auto) 61, Lymphocytes (%) (Auto) 24, Monocytes (%) (Auto) 12, Eosinophils (%) (Auto) 2, Basophils (%) (Auto) 0, Neutrophils # (Auto) 4.7, Lymphocytes # (Auto) 1.8, Monocytes # (Auto) 0.9, Eosinophils # (Auto) 0.2, Basophils # (Auto) 0.0, Sodium Level 140, Potassium Level 4.0, Chloride Level 107, Carbon Dioxide Level 23, Anion Gap 10, Blood Urea Nitrogen 14, Creatinine 0.72, Estimat Glomerular Filtration Rate > 60, BUN/Creatinine Ratio 19, Glucose Level 122, Calcium Level 9.2, Corrected Calcium 9.5, Total Bilirubin 0.4, Aspartate Amino Transf (AST/SGOT) 30, Alanine Aminotransferase (ALT/SGPT) 22, Alkaline Phosphatase 80, Total Protein 6.8, Albumin 3.6 07/23/19 10:51: Glucometer 121 07/23/19 15:49: Glucometer 147 07/23/19 20:50: Glucometer 130 07/24/19 06:47: Glucometer 139 07/24/19 11:06: Glucometer 136 Discharge Home Medications: Active Scripts Active Multiple Vitamins (Multivitamin) 1 Each Tablet 1 Each PO DAILY Phenazopyridine HCl 100 Mg Tablet 100 Mg PO TID PRN Potassium Chloride 10 Meq Tab.er.prt 10 Meq PO DAILY Ativan (Lorazepam) 0.5 Mg Tablet 0.5 Mg PO BID PRN 7 Days Glyburide 2.5 Mg Tablet 1.25 Mg PO DAILY@0630 Magnesium Oxide 400 Mg Tablet 400 Mg PO BID Amlodipine Besylate 5 Mg Tablet 5 Mg PO DAILY Metoprolol Succinate 25 Mg Tab.er.24h 25 Mg PO DAILY Atorvastatin Calcium 80 Mg Tablet 80 Mg PO HS Reported Lisinopril 20 Mg Tablet 20 Mg PO DAILY Aspirin EC (Aspirin) 81 Mg Tablet.dr 81 Mg PO DAILY Instructions to patient/family Please see electronic discharge instructions given to patient. Diagnosis/Problems Diagnosis/Problems (1) CVA (cerebral vascular accident) Status: Acute Qualifiers: Qualified Codes: I63.9 - Cerebral infarction, unspecified (2) Diabetes Status: Chronic Qualifiers: Qualified Codes: E11.59 - Type 2 diabetes mellitus with other circulatory complications; Z79.4 - terminal worker (current) use of insulin (3) Hyperlipemia Status: Chronic Qualifiers: Qualified Codes: E78.2 - Mixed hyperlipidemia (4) Left-sided weakness Status: Acute (5) Hypokalemia Status: Acute (6) Hypertension Status: Chronic Qualifiers: Qualified Codes: I10 - Essential (primary) hypertension Clinical Quality Measures DVT/VTE Risk/Contraindication: Risk Factor Score Per Nursin RFS Level Per Nursing on Admit: 4+=Very High HERMINIA WILBURN DO Jul 24, 2019 10:04
--- NOTE | 2019-07-24 15:10 | Therapy Team Discharge Summary ---
Therapy Discharge Summary Discharge Recommendations Date of Discharge Occupational Therapy Pt admitted to ARU following acute hospitalization for CVA with left sided weakness. On admission pt required min assist with bathing, toileting, and toilet transfer, and mod assist with LE dressing. Skilled OT intervention fo cused on ADL training, transfers, strengthening, and safety education. Pt made good progress with therapy and by discharge is independent with eating and modified independent with all other basic ADLs and transfers. Pt met all OT LTG. Pt discharged home. D/C ARU OT at this time. Decreased Activ Tolerance PT Senior Care Goals Child Development Teacher Goals PT Senior Care Goals Time Frame: Aug 08, 2019 Transfers (B,C,W/C) (FIM): 6 Roll Left to Right (QC): 6 Sit to Lying (QC): 6 Lying-Sitting on Side/Bed(QC): 6 Sit to Stand (QC): 6 Chair/Ngk-eu-Mvfiv Xfer(QC): 6 Car Transfer (QC): 6 Gait (FIM): 6 Distance: 300' Walk 10 feet (QC): 6 Walk 10ft-Uneven Surface(QC): 6 Walk 50ft with 2 Turns (QC): 6 Walk 150 ft (QC): 6 Gait Level of Assist: 6 Gait Assistive Device: FWW Stairs (FIM): 2 # of Steps: 4 1 Step (curb) (QC): 4 4 Steps (QC): 4 Stairs Level Of Assist: 5 OT Child Development Teacher Goals Child Development Teacher Goals Time Frame: Aug 01, 2019 Eating (FIM): 6 Eating (QC): 6 Oral Hygiene (QC): 6 Grooming(FIM): 6 Bathing(FIM): 5 Shower/Bathe Self (QC): 4 Upper Body Dressing(FIM): 6 Upper Body Dressing (QC): 6 Lower Body Dressing(FIM): 6 Lower Body Dressing (QC): 6 On/Off Footwear (QC): 6 Toileting(FIM): 6 Toileting Hygiene (QC): 6 Transfers (B,C,W/C) (FIM): 6 Toilet/Commode Transfer(FIM): 6 Toilet/Commode Transfer (QC): 6 Shower Transfer(FIM): 5 Additional Goals: 1-Demonstrate ADL Tasks, 2-Verbalize Understanding, 3- ImproveStrength/Harsh 1=Demonstrate adherence to instructed precautions during ADL tasks. 2=Patient will verbalize/demonstrate understanding of assistive devices/modifications for ADL. 3=Patient will improve strength/tolerance for activity to enable patient to perform ADL's. ITZ RAINES OT Jul 24, 2019 15:10
--- NOTE | 2019-07-25 09:52 | Therapy Team Discharge Summary ---
Therapy Discharge Summary Discharge Recommendations Date of Discharge Jul 24, 2019 at 13:45 Physical Therapy This patient was admitted to ARU post acute stay due to a CVA. Prior to acute admission, she was indep with all functional mobiity. Upon admit to ARU, she was min assist with tranfers, gait and 1 step. Treatment has focused on functional strength, balance, safety to improve gait and transfers to allow her to return home and care for herself. She has made excellent progress and has met all goals She is mod indep with gait and transfers and stairs[facility] Therapy Decreased Activ Tolerance PT Chcf Goals Chcf Goals PT Public Relations Manager Goals Time Frame: Aug 08, 2019 Transfers (B,C,W/C) (FIM): 6 (met) Roll Left to Right (QC): 6 Sit to Lying (QC): 6 Lying-Sitting on Side/Bed(QC): 6 Sit to Stand (QC): 6 Chair/Mzn-je-Ummty Xfer(QC): 6 Car Transfer (QC): 6 Gait (FIM): 6 (met) Distance: 300' Walk 10 feet (QC): 6 Walk 10ft-Uneven Surface(QC): 6 Walk 50ft with 2 Turns (QC): 6 Walk 150 ft (QC): 6 Gait Level of Assist: 6 Gait Assistive Device: FWW Stairs (FIM): 2 (exceeded) # of Steps: 4 1 Step (curb) (QC): 4 4 Steps (QC): 4 Stairs Level Of Assist: 5 OT Chcf Goals Public Relations Manager Goals Time Frame: Aug 01, 2019 Eating (FIM): 6 Eating (QC): 6 Oral Hygiene (QC): 6 Grooming(FIM): 6 Bathing(FIM): 5 Shower/Bathe Self (QC): 4 Upper Body Dressing(FIM): 6 Upper Body Dressing (QC): 6 Lower Body Dressing(FIM): 6 Lower Body Dressing (QC): 6 On/Off Footwear (QC): 6 Toileting(FIM): 6 Toileting Hygiene (QC): 6 Transfers (B,C,W/C) (FIM): 6 Toilet/Commode Transfer(FIM): 6 Toilet/Commode Transfer (QC): 6 Shower Transfer(FIM): 5 Additional Goals: 1-Demonstrate ADL Tasks, 2-Verbalize Understanding, 3- ImproveStrength/Harsh 1=Demonstrate adherence to instructed precautions during ADL tasks. 2=Patient will verbalize/demonstrate understanding of assistive devices/modifications for ADL. 3=Patient will improve strength/tolerance for activity to enable patient to perform ADL's. ROBERT LYNNE PT Jul 25, 2019 09:52
== END 2019-07-24 13:45 | disposition home or self-care (01) | DRG 57 ==
PROVIDERS: ADMIT Internal Medicine; ATTEND Internal Medicine
DX: I69.354 Hemiplegia and hemiparesis following cerebral infarction affecting left non-dominant side (principal); F17.210 Nicotine dependence, cigarettes, uncomplicated; I10 Essential (primary) hypertension; E11.9 Type 2 diabetes mellitus without complications; R35.0 Frequency of micturition; F41.9 Anxiety disorder, unspecified; E87.6 Hypokalemia; E78.5 Hyperlipidemia, unspecified; R50.9 Fever, unspecified; R19.7 Diarrhea, unspecified; Z79.84 Long term (current) use of oral hypoglycemic drugs
CPT/HCPCS: 36415; 80053; 81000; 82962; 85025; 85027; 87088